=== PATIENT | female | born 1950 | race Caucasian/White ===

== ENCOUNTER 2019-07-25 01:45 | Observation (INO) | payer MEDICARE ==
[2019-07-25 02:04] VITALS: RESP 18
[2019-07-25] MEDS ORDERED: SODIUM CHLORIDE 0.9% 1,000 ML IV STA (02:05)
--- NOTE | 2019-07-25 02:16 | ED ---
General Adult HPI - General Chief complaint: Allergic Reaction Stated complaint: Diff Breathing Time Seen by Provider: 07/25/19 01:56 Source: patient Mode of arrival: ambulatory Limitations: no limitations - History of Present Illness Initial comments: 69-year-old female patient presents to the emergency department today for evaluation of multiple symptoms. Patient states she woke from sleep feeling as though she could not breathe. She is felt like her throat was closing off and her mouth was very dry. States that she then developed itching over her scalp and on her arms. States she is also having a pain to the mid upper back. Denies any abdominal pain. States she is nauseated. Denies any sweats. Patient states she had a similar episode at least 1 week ago. She denies any new medications. Denies any exposure to new substances including foods, lotions, soaps, detergents, or new clothing. Patient denies any recent rash, fever, chills, diarrhea, constipation, back pain, numbness, tingling, dizziness, weakness, hematuria, dysuria, urinary urgency, urinary frequency, headache, visual changes, or any other complaints. - Related Data Allergies Allergy/AdvReac Type Severity Reaction Status Date / Time ampicillin AdvReac Rash/Hives Verified 07/25/19 01:56 Review of Systems ROS Statement: Those systems with pertinent positive or pertinent negative responses have been documented in the HPI. ROS Other: All systems not noted in ROS Statement are negative. Past Medical History Past Medical History: CVA/TIA, Hypertension History of Any Multi-Drug Resistant Organisms: None Reported Past Surgical History: Section, Hysterectomy, Tonsillectomy Additional Past Surgical History / Comment(s): EYE SURGERY Past Psychological History: No Psychological Hx Reported Smoking Status: Never smoker Past Alcohol Use History: Occasional Past Drug Use History: None Reported General Exam Limitations: no limitations General appearance: alert, in no apparent distress, other (This is a well- developed, well-nourished adult female patient in no acute distress. Vital signs upon presentation are temperature 97.4F, pulse 66, respirations 20, blood pressure 92/62, pulse ox 98% on room air.) ENT exam: Present: normal exam, normal oropharynx. Absent: mucous membranes moist (Dry mucous membrane) Respiratory exam: Present: normal lung sounds bilaterally. Absent: respiratory distress, wheezes, rales, rhonchi, stridor Cardiovascular Exam: Present: regular rate, normal rhythm, normal heart sounds. Absent: systolic murmur, diastolic murmur, rubs, gallop, clicks GI/Abdominal exam: Present: soft, normal bowel sounds. Absent: distended, tende rness, guarding, rebound, rigid Neurological exam: Present: alert, oriented X3, CN II-XII intact Psychiatric exam: Present: normal affect, normal mood Skin exam: Present: warm, dry, intact, normal color. Absent: rash Course Vital Signs 07/25/19 07/25/19 01:52 02:02 Temperature 97.4 F L Pulse Rate 66 Respiratory 20 18 Rate Blood Pressure 92/62 O2 Sat by Pulse 98 Oximetry EKG Findings - EKG Comments: EKG Findings:: EKG obtained at 0206 shows sinus bradycardia with a ventricular rate of 59, [place] interval 176, QRS duration 76, QT 422, QTc 417. No evidence of ST elevation or depression. Medical Decision Making - Medical Decision Making 69-year-old female patient with past medical history significant for hypertension and TIA presents to the emergency department today for evaluation of difficulty breathing. Patient is reporting a tightness in her throat and the feeling that she was not getting enough air. She is also reporting dry mouth, nausea, and upper back pain. Labs reviewed and were unremarkable. Chest x-ray showed no acute cardio pulmonary process. EKG showed sinus bradycardia with no ST elevation or depression. Given patient's history and current symptoms will admit for serial troponins to rule out cardiac event. Patient is agreeable with this plan. - Lab Data Result diagrams: 07/25/19 02:08 07/25/19 02:08 Lab Results 07/25/19 07/25/19 07/25/19 Range/Units 02:08 02:08 02:08 WBC 11.6 H (3.8-10.6) k/uL RBC 4.38 (3.80-5.40) m/uL Hgb 12.8 (11.4-16.0) gm/dL Hct 37.3 (34.0-46.0) % MCV 85.1 (80.0-100.0) fL MCH 29.2 (25.0-35.0) pg MCHC 34.3 (31.0-37.0) g/dL RDW 13.1 (11.5-15.5) % Plt Count 397 (150-450) k/uL Neutrophils % 51 % Lymphocytes % 36 % Monocytes % 5 % Eosinophils % 4 % Basophils % 2 % Neutrophils # 5.9 (1.3-7.7) k/uL Lymphocytes # 4.2 (1.0-4.8) k/uL Monocytes # 0.6 (0-1.0) k/uL Eosinophils # 0.5 (0-0.7) k/uL Basophils # 0.2 (0-0.2) k/uL PT 9.4 (9.0-12.0) sec INR 0.9 (<1.2) APTT 22.2 (22.0-30.0) sec D-Dimer (<0.60) mg/L FEU Sodium 139 (137-145) mmol/L Potassium 3.6 (3.5-5.1) mmol/L Chloride 105 (98-107) mmol/L Carbon Dioxide 24 (22-30) mmol/L Anion Gap 10 mmol/L BUN 25 H (7-17) mg/dL Creatinine 0.76 (0.52-1.04) mg/dL Est GFR (CKD-EPI)AfAm >90 (>60 ml/min/1.73 sqM) Est GFR (CKD-EPI)NonAf 81 (>60 ml/min/1.73 sqM) Glucose 130 H (74-99) mg/dL Calcium 9.6 (8.4-10.2) mg/dL Magnesium 1.9 (1.6-2.3) mg/dL Total Bilirubin 0.2 (0.2-1.3) mg/dL AST 29 (14-36) U/L ALT 27 (9-52) U/L Alkaline Phosphatase 127 H (38-126) U/L Troponin I (0.000-0.034) ng/mL Total Protein 7.0 (6.3-8.2) g/dL Albumin 4.1 (3.5-5.0) g/dL 07/25/19 07/25/19 Range/Units 02:08 02:08 WBC (3.8-10.6) k/uL RBC (3.80-5.40) m/uL Hgb (11.4-16.0) gm/dL Hct (34.0-46.0) % MCV (80.0-100.0) fL MCH (25.0-35.0) pg MCHC (31.0-37.0) g/dL RDW (11.5-15.5) % Plt Count (150-450) k/uL Neutrophils % % Lymphocytes % % Monocytes % % Eosinophils % % Basophils % % Neutrophils # (1.3-7.7) k/uL Lymphocytes # (1.0-4.8) k/uL Monocytes # (0-1.0) k/uL Eosinophils # (0-0.7) k/uL Basophils # (0-0.2) k/uL PT (9.0-12.0) sec INR (<1.2) APTT (22.0-30.0) sec D-Dimer 0.50 (<0.60) mg/L FEU Sodium (137-145) mmol/L Potassium (3.5-5.1) mmol/L Chloride (98-107) mmol/L Carbon Dioxide (22-30) mmol/L Anion Gap mmol/L BUN (7-17) mg/dL Creatinine (0.52-1.04) mg/dL Est GFR (CKD-EPI)AfAm (>60 ml/min/1.73 sqM) Est GFR (CKD-EPI)NonAf (>60 ml/min/1.73 sqM) Glucose (74-99) mg/dL Calcium (8.4-10.2) mg/dL Magnesium (1.6-2.3) mg/dL Total Bilirubin (0.2-1.3) mg/dL AST (14-36) U/L ALT (9-52) U/L Alkaline Phosphatase (38-126) U/L Troponin I <0.012 (0.000-0.034) ng/mL Total Protein (6.3-8.2) g/dL Albumin (3.5-5.0) g/dL - Radiology Data Radiology results: report reviewed, image reviewed Two-view x-ray of the chest is obtained. Report was reviewed in its entirety. Impression by Dr. Saab shows normal chest. Disposition Clinical Impression: Dyspnea, Upper back pain, Nausea Disposition: ADMITTED IP TO THIS [facility] Condition: Serious Referrals: Halie Thompson DO [Primary Care Provider] - 1-2 days Decision to Admit Reason: Admit from EC Decision Date: 07/25/19 Decision Time: 03:43
[2019-07-25 02:24] LABS: Basophils # (A) 0.2 k/uL (0-0.2); Basophils % (A) 2 %; Eosinophils # (A) 0.5 k/uL (0-0.7); Eosinophils % (A) 4 %; HCT 37.3 % (34.0-46.0); HGB 12.8 gm/dL (11.4-16.0); Lymphocytes # (A) 4.2 k/uL (1.0-4.8); Lymphocytes % (A) 36 %; MCH 29.2 pg (25.0-35.0); MCHC 34.3 g/dL (31.0-37.0); MCV 85.1 fL (80.0-100.0); Monocytes # (A) 0.6 k/uL (0-1.0); Monocytes % (A) 5 %; Neutrophils # (A) 5.9 k/uL (1.3-7.7); Neutrophils % (A) 51 %; Platelet Count 397 k/uL (150-450); RBC 4.38 m/uL (3.80-5.40); RDW 13.1 % (11.5-15.5); WBC 11.6 k/uL (3.8-10.6)
--- NOTE | 2019-07-25 02:25 | XR ---
EXAMINATION TYPE: XR chest 2V DATE OF EXAM: 07/25/2019 COMPARISON: NONE HISTORY: Chest pain TECHNIQUE: Frontal and lateral views of the chest are obtained. FINDINGS: Heart and mediastinum are normal. Lungs are clear. Diaphragm is normal. Bony thorax appear s normal. There are chest leads. IMPRESSION: Normal chest
[2019-07-25 02:31] LABS: ALT 27 U/L (9-52); AST 29 U/L (14-36); African American GFR (CKD) >90 (>60 ml/min/1.73 sqM); Albumin 4.1 g/dL (3.5-5.0); Alkaline Phosphatase 127 U/L (38-126); Anion Gap 10 mmol/L; Blood Urea Nitrogen 25 mg/dL (7-17); Calcium 9.6 mg/dL (8.4-10.2); Carbon Dioxide 24 mmol/L (22-30); Chloride 105 mmol/L (98-107); Glucose 130 mg/dL (74-99); Magnesium 1.9 mg/dL (1.6-2.3); Non-African American GFR(CKD) 81 (>60 ml/min/1.73 sqM); Potassium 3.6 mmol/L (3.5-5.1); Sodium 139 mmol/L (137-145); Total Bilirubin 0.2 mg/dL (0.2-1.3)
[2019-07-25 02:36] LABS: INR 0.9 (<1.2); Partial Thromboplastin Time 22.2 sec (22.0-30.0); Prothrombin Time 9.4 sec (9.0-12.0)
[2019-07-25] MEDS ORDERED: diphenhydrAMINE 50 MG/ML 1 ML VIAL IVP STA (03:04)
[2019-07-25] MEDS ORDERED: ACETAMINOPHEN TAB 325 MG TAB PO STA (03:04)
[2019-07-25] MEDS ORDERED: NITROGLYCERIN SL TABS 0.4 MG TAB SUBLINGUAL PRN (03:40)
[2019-07-25] MEDS ORDERED: ASPIRIN 81 MG PO STA (03:40)
--- NOTE | 2019-07-25 10:53 | CONS ---
CONSULTATION This is a 69-year-old lady, a patient of Dr. Ramos, who has been admitted to the hospital when she came in with complaining of shortness of breath. She apparently woke up from sleep, felt short of breath. She could not get her breath and came into the hospital. Her initial troponin is normal. She is resting comfortably. She does carry history of hypertension and hypercholesterolemia. She has a diet-controlled diabetes mellitus, which is not an issue at this time. At the time of my evaluation, she is asymptomatic. She never had chest discomfort. Her main complaint was mainly shortness of breath relatively spontaneous and occurred while she was asleep. Her D-dimer was unremarkable. PAST MEDICAL HISTORY: Past medical history is remarkable for hypertension, hypercholesterolemia and previous umbilical hernia surgery that was performed. She also is status post hysterectomy. There is a question of TIA several years ago. MEDICATIONS: Medications at home include pravastatin, lisinopril hydrochlorothiazide. She also takes Protonix and Lopressor 25 mg b.i.d. ALLERGIES: She is allergic to AMPICILLIN. PHYSICAL EXAMINATION: On examination, blood pressure is 130/70, pulse rate is 64 per minute, regular. HEENT: Unremarkable. Fundus was not examined by me. Neck is supple. No JVD. Patient has a right carotid bruit. There is no thyromegaly. Heart exam reveals S1, S2 heard normally without a rub, murmur or gallop. Lungs are clear. Abdomen is soft, nontender. Lower extremities reveal normal pulses. No edema. Central nervous system is normal. EKG revealed sinus mechanism, no acute changes. IMPRESSION: 1. Episodic shortness of breath seems very atypical does not suggest any angina. D- dimer is negative and no evidence to suggest any pulmonary embolism type picture. 2. Hypertension. 3. Hyperlipidemia. 4. Right-sided carotid bruit. RECOMMENDATION: I am recommending an echocardiogram, a carotid Doppler study, a bedside PFT to check if she has any underlying asthma or not, and we will check additional troponins. MMODL / IJN: [id number] /
[2019-07-25 11:37] VITALS: BP 117/63; PULSE 77; TEMP 97.9
--- NOTE | 2019-07-25 12:40 | ECHOF ---
Referral Reason:chest pain MEASUREMENTS -------- HEIGHT: 132.1 cm WEIGHT: 65.3 kg BP: RVIDd: 2.8 cm (< 3.3) IVSd: 1.0 cm (0.6 - 1.1) LVIDd: 3.7 cm (3.9 - 5.3) LVPWd: 1.3 cm (0.6 - 1.1) IVSs: 1.9 cm LVIDs: 1.5 cm LVPWs: 1.5 cm LAESV Index (A-L): 24.36 ml/m Ao Diam: 2.8 cm (2.0 - 3.7) AV Cusp: 1.8 cm (1.5 - 2.6) LA Diam: 2.5 cm (2.7 - 3.8) MV EXCURSION: 14.924 mm (> 18.000) MV EF SLOPE: 102 mm/s (70 - 150) EPSS: 0.5 cm MV E Familia: 0.79 m/s MV DecT: 135 ms MV A Familia: 0.90 m/s MV E/A Ratio: 0.88 RAP: 5.00 mmHg RVSP: 23.88 mmHg TAPSE: 19.09 mm FINDINGS -------- Sinus rhythm. This was a technically good study. The left ventricular size is normal. There is borderline concentric left ventricular hypertrophy. Overall left ventricular systolic function is normal with, an EF between 55 - 60 %. The diastolic filling pattern is normal for the age of the patient 13.13. The right ventricle is normal in size. The right ventricular systolic function is normal. The left atrial size is normal. Normal LA size by volume 22+/-6 ml/m2. The right atrial size is normal. Interatrial and interventricular septum intact. Aortic valve is trileaflet and is mildly thickened. The mitral valve is normal. The mitral valve leaflets are mildly thickened. Mild mitral regurgita tion is present. The tricuspid valve appears structurally normal. Trace tricuspid regurgitation present. Right jose tricular systolic pressure is normal at < 35 mmHg. There is no pulmonic regurgitation present. The aortic root size is normal. Normal inferior vena cava with normal inspiratory collapse consistent with estimated right atrial pre ssure of 5 mmHg. There is no pericardial effusion. CONCLUSIONS -------- 1. Sinus rhythm. 2. This was a technically good study. 3. The left ventricular size is normal. 4. There is borderline concentric left ventricular hypertrophy. 5. Overall left ventricular systolic function is normal with, an EF between 55 - 60 %. 6. The diastolic filling pattern is normal for the age of the patient 13.13 7. The right ventricle is normal in size. 8. The right ventricular systolic function is normal. 9. The left atrial size is normal. 10. Normal LA size by volume 22+/-6 ml/m2. 11. The right atrial size is normal. 12. Interatrial and interventricular septum intact. 13. Aortic valve is trileaflet and is mildly thickened. 14. The mitral valve is normal. 15. The mitral valve leaflets are mildly thickened. 16. Mild mitral regurgitation is present. 17. The tricuspid valve appears structurally normal. 18. Trace tricuspid regurgitation present. 19. Right ventricular systolic pressure is normal at < 35 mmHg. 20. There is no pulmonic regurgitation present. 21. The aortic root size is normal. 22. Normal inferior vena cava with normal inspiratory collapse consistent with estimated right atrial pressure of 5 mmHg. 23. There is no pericardial effusion. [employer] BLANK[employer] PACKER: Jyothi Blackmon RDCS
--- NOTE | 2019-07-25 23:23 | P.HPIM ---
History of Present Illness H&P Date: 07/25/19 Harriet Wilder is a 69 yo F with PMH of HTN who presented to the ED after waking up out of sleep with shortness of breath as well as back discomfort. She states this has never happened before but she woke up and felt she couldn't catch her breath with associated mid-thoracic back pain which radiated into her neck and she descrbies as sharp, electric. She did not have any chest pain. She is a nonsmoker, denies DM or history of heart disease. In the ED vitals and labs unremarkable, trop negative x3. Review of Systems All systems: negative Constitutional: Denies chills, Denies fever Eyes: denies blurred vision, denies pain Ears, nose, mouth and throat: Denies headache, Denies sore throat Cardiovascular: Denies chest pain, Denies shortness of breath Respiratory: Reports dyspnea, Denies cough Gastrointestinal: Denies abdominal pain, Denies diarrhea, Denies nausea, Denies vomiting Genitourinary: Denies dysuria, Denies hematuria Musculoskeletal: Reports as per HPI, Denies myalgias Integumentary: Denies pruritus, Denies rash Neurological: Denies numbness, Denies weakness Psychiatric: Denies anxiety, Denies depression Endocrine: Denies fatigue, Denies weight change Past Medical History Past Medical History: CVA/TIA, Eye Disorder, GERD/Reflux, Hyperlipidemia, Hypertension Additional Past Medical History / Comment(s): TIA, gastric ulcer, constipation, chronic back pain, cervical and back DDD, R eye detached retina with surgery, whooping cough as a child History of Any Multi-Drug Resistant Organisms: None Reported Past Surgical History: Section, Hysterectomy, Tonsillectomy, Tubal Ligation Additional Past Surgical History / Comment(s): R eye surgery for detached retina, bilateral eye lasik surgery for vision, bilateral eye cataract removals/lens implants, EGD, colonoscopy. Past Anesthesia/Blood Transfusion Reactions: No Reported Reaction Smoking Status: Never smoker - Past Family History Father History Unknown: Yes Additional Family Medical History / Comment(s): Father in a MVA at the age of 35 yrs. Mother Family Medical History: Coronary Artery Disease (CAD), Diabetes Mellitus, Myocardial Infarction ([place]), Renal Disease Additional Family Medical History / Comment(s): Mother is 87yrs old. Pt does not recall at what age mother had a [place]. Medications and Allergies Home Medications Medication Instructions Recorded Confirmed Type Lisinopril-Hctz 20-25 mg 1 tab PO DAILY 07/25/19 07/25/19 History [Zestoretic 20-25] Meloxicam 15 mg PO DAILY 07/25/19 07/25/19 History Metoprolol Tartrate [Lopressor] 25 mg PO BID 07/25/19 07/25/19 History Pantoprazole [Protonix] 40 mg PO DAILY 07/25/19 07/25/19 History Pravastatin Sodium [Pravachol] 20 mg PO HS 07/25/19 07/25/19 History tiZANidine [Zanaflex] 4 - 8 mg PO DAILY PRN 07/25/19 07/25/19 History Allergies Allergy/AdvReac Type Severity Reaction Status Date / Time ampicillin AdvReac Rash/Hives Verified 07/25/19 08:09 Physical Exam Vitals: Vital Signs Temp Pulse Pulse Resp BP BP Pulse Ox 07/25/19 11:36 97.9 F 77 18 117/63 95 07/25/19 07:00 97.6 F 64 18 133/79 97 07/25/19 04:25 98.2 F 66 18 144/82 97 07/25/19 03:52 61 18 110/68 98 07/25/19 02:02 18 07/25/19 01:52 97.4 F L 66 20 92/62 98 Intake and Output 07/25/19 07/25/19 07/26/19 14:59 22:59 06:59 Intake Total 240 Balance 240 Intake: Oral 240 Other: # Voids 1 General: well nourished, well developed, NAD. Vitals reviewed Eyes: PERRL, EOMI, conjunctiva normal HENT: normocephalic, mucus membranes moist Neck: supple, no JVD Lungs: normal respiratory effort, no wheezes or rales CV: Regular rate and rhythm, no murmur. Peripheral pulses 2+ Abdomen: soft, nondistended, no organomegaly Lymph: no cervical or axillary LAD Skin: warm and dry. Neuro: A&Ox3, normal mood and affect Results CBC & Chem 7: 07/25/19 02:08 07/25/19 02:08 Labs: Abnormal Lab Results - Last 24 Hours (Table) 07/25/19 07/25/19 Range/Units 02:08 02:08 WBC 11.6 H (3.8-10.6) k/uL BUN 25 H (7-17) mg/dL Glucose 130 H (74-99) mg/dL Alkaline Phosphatase 127 H (38-126) U/L Thrombosis Risk Factor Assmnt - Choose All That Apply Any of the Below Risk Factors Present?: Yes Each Factor Represents 1 point: Obesity (BMI >25) Other Risk Factors: Yes Each Risk Factor Represents 2 Points: Age 61-74 years Other congenital or acquired thrombophilia - If yes, enter type in comment: No Thrombosis Risk Factor Assessment Total Risk Factor Score: 3 Thrombosis Risk Factor Assessment Level: Moderate Risk Assessment and Plan (1) Dyspnea Status: Acute Code(s): R06.00 - DYSPNEA, UNSPECIFIED SNOMED Code(s): 690704921 (2) Nausea Status: Acute Code(s): R11.0 - NAUSEA SNOMED Code(s): 472253615 (3) Upper back pain Status: Acute Code(s): M54.9 - DORSALGIA, UNSPECIFIED SNOMED Code(s): 576044461 Plan: 1. Shortness of breath. ACS ruled out. Cardiology consulted for further eval. Suspect related to back pain/pinched nerve 2. Back pain. Now resolved. Continue to monitor. Ibuprofen prn
--- NOTE | 2019-07-25 23:24 | P.DS ---
Providers Date of admission: 07/25/19 03:41 Expected date of discharge: 07/25/19 Attending physician: Tushar Ramos MD Consults: 07/25/19 03:40 Consult Physician Urgent Consulting Provider: [facility] Consult Reason/Comments: Upper back pain; dyspnea Do you want consulting provider notified?: Yes Primary care physician: Halie Thompson - Discharge Diagnosis(es) (1) Dyspnea Status: Acute (2) Nausea Status: Acute (3) Upper back pain Status: Acute Hospital Course: Harriet Wilder is a 69 yo F with PMH of HTN who presented to the ED after waking up out of sleep with shortness of breath as well as back discomfort. She states this has never happened before but she woke up and felt she couldn't catch her breath with associated mid-thoracic back pain which radiated into her neck and she descrbies as sharp, electric. She did not have any chest pain. She is a nonsmoker, denies DM or history of heart disease. In the ED vitals and labs unremarkable, trop negative x3. She was seen by Cardiology and cleared for discharge. She is discharged home and recommended to follow up outpatient for stress test. Patient Condition at Discharge: Serious Plan - Discharge Summary Discharge Rx Participant: No New Discharge Prescriptions: Continue Pantoprazole [Protonix] 40 mg PO DAILY Lisinopril-Hctz 20-25 mg [Zestoretic 20-25] 1 tab PO DAILY Pravastatin Sodium [Pravachol] 20 mg PO HS tiZANidine [Zanaflex] 4 - 8 mg PO DAILY PRN PRN Reason: arthritis pain Metoprolol Tartrate [Lopressor] 25 mg PO BID Meloxicam 15 mg PO DAILY Discharge Medication List Lisinopril-Hctz 20-25 mg [Zestoretic 20-25] 1 tab PO DAILY 07/25/19 [History] Meloxicam 15 mg PO DAILY 07/25/19 [History] Metoprolol Tartrate [Lopressor] 25 mg PO BID 07/25/19 [History] Pantoprazole [Protonix] 40 mg PO DAILY 07/25/19 [History] Pravastatin Sodium [Pravachol] 20 mg PO HS 07/25/19 [History] tiZANidine [Zanaflex] 4 - 8 mg PO DAILY PRN 07/25/19 [History] Follow up Appointment(s)/Referral(s): Laurie Gomez MD [STAFF PHYSICIAN] - 1 Week (office will call the patient with date and time of appointment for outpatient stress test.) Halie Thompson DO [Primary Care Provider] - 1-2 days Patient Instructions/Handouts: Chest Pain (DC) Discharge Disposition: HOME SELF-CARE
[2019-07-26] MEDS ORDERED: ASPIRIN 325 MG TAB PO SCH (09:00)
== END 2019-07-25 14:11 | disposition home or self-care (01) ==
LOC: EC 01:45 → 1SOBS 03:41
PROVIDERS: ADMIT Family Medicine; ATTEND Family Medicine
DX: R06.00 Dyspnea, unspecified (principal); R11.0 Nausea; M54.9 Dorsalgia, unspecified; E11.9 Type 2 diabetes mellitus without complications; E78.00 Pure hypercholesterolemia, unspecified; E78.5 Hyperlipidemia, unspecified; I10 Essential (primary) hypertension; Z79.1 Long term (current) use of non-steroidal anti-inflammatories (NSAID); Z79.899 Other long term (current) drug therapy; Z82.49 Family history of ischemic heart disease and other diseases of the circulatory system; Z83.3 Family history of diabetes mellitus; Z86.73 Personal history of transient ischemic attack (TIA), and cerebral infarction without residual deficits; Z87.11 Personal history of peptic ulcer disease; Z90.710 Acquired absence of both cervix and uterus; Z88.0 Allergy status to penicillin; R09.89 Other specified symptoms and signs involving the circulatory and respiratory systems; Z98.51 Tubal ligation status; Z98.42 Cataract extraction status, left eye; Z98.41 Cataract extraction status, right eye; Z96.1 Presence of intraocular lens
CPT/HCPCS: 93005 ×2; 96361; 96374; 99285; 36415; 93306; 85379; 80053; 83735; 84484; 85025; 85610; 85730; 71046; G0378; J1200

== ENCOUNTER → 2019-11-20 | Outpatient (CLI) | payer MEDICARE | END | disposition home or self-care (01) | LOC: RADMAMWWP 14:22 | PROVIDERS: ATTEND Family Medicine | DX: Z12.31 Encounter for screening mammogram for malignant neoplasm of breast (principal) | CPT/HCPCS: 77067 ==

== ENCOUNTER → 2021-02-15 | Outpatient (CLI) | payer MEDICARE ==
--- NOTE | 2021-02-17 08:30 | MM ---
Reason for exam: screening (asymptomatic). Last mammogram was performed 1 year and 3 months ago. History: Patient is postmenopausal. Family history of breast cancer in paternal aunt. Reductions of both breasts. Took estrogen for 2 years beginning at age 67. Physical Findings: A clinical breast exam by your physician is recommended on an annual basis and results should be correlated with mammographic findings. MG 3D Screening Mammo W/Cad Bilateral CC and MLO view(s) were taken. Prior study comparison: November 20, 2019, bilateral MG screening mammo w CAD. January 18, 2018, mammogram, performed at [place]. There are scattered fibroglandular densities. There are benign appearing round dystrophic calcifications bilaterally. There is no discrete abnormality. ASSESSMENT: Benign, BI-RAD 2 RECOMMENDATION: Routine screening mammogram of both breasts in 1 year.
== END | disposition home or self-care (01) ==
LOC: RADMAMWWP 12:31
PROVIDERS: ATTEND Family Medicine
DX: Z12.31 Encounter for screening mammogram for malignant neoplasm of breast (principal); Z78.0 Asymptomatic menopausal state; Z80.3 Family history of malignant neoplasm of breast
CPT/HCPCS: 77063; 77067

== ENCOUNTER 2021-04-04 08:42 | Emergency (ER) | payer MEDICARE ==
[2021-04-04 08:47] VITALS: RESP 18
[2021-04-04] MEDS ORDERED: HYDROmorphone 1 MG/ML 1 ML SYRINGE IM STA (09:06)
--- NOTE | 2021-04-04 09:58 | CT ---
EXAMINATION TYPE: CT cervical spine wo con DATE OF EXAM: 04/04/2021 COMPARISON: None HISTORY: Right neck and arm pain with numbness for [address] DLP: 380.4 mGycm CONTRAST: None CT of the cervical spine is performed in the axial plane at 2 mm thick sections. Reconstructed image s in the coronal, and sagittal plane are reviewed on the computer. No acute fractures are evident. Vertebral body alignment is normal. There is an anterior cervical fusion at C4-5. Loss of disc height is present C4-5 C5-6 C6-7. Anterior vertebral body spurring is present C5-6 C6-7. Some posterior vertebral body spurring may be present at C6-7. Vertebral body heights are preserved. No spinal canal stenosis is evident Facet hypertrophy and uncovertebral joint hypertrophy is present C2-3 causing right foraminal stenosi s. Similar left foraminal stenosis present C3-4. Bilateral uncovertebral joint hypertrophy at C5-6 pitts s moderate bilateral foraminal stenosis IMPRESSIONS: 1. Uncovertebral joint hypertrophy contributing to foraminal stenosis. Correlate with right arm rasheeda rologic symptoms. 2. Degenerative disc changes mid and lower cervical spine. 3. Postsurgical changes.
--- NOTE | 2021-04-04 10:26 | ED ---
General Adult HPI - General Chief complaint: Back Pain/Injury Stated complaint: pinched nerve Time Seen by Provider: 04/04/21 08:49 Source: patient, RN notes reviewed Mode of arrival: ambulatory Limitations: no limitations - History of Present Illness Initial comments: This a 71-year-old female presents emergency Department with chief complaint neck pain. Patient states she had surgery or 10 years ago. Patient's been having increasing pain in which she started seen Dr. Henson. Patient is scheduled for CT and possible injections. Patient states pain is getting worse she does have some right radicular symptoms she states she is on tramadol which is not helping. Patient denies any current headache chest pain shortness breath no other complaints. - Related Data Home Medications Medication Instructions Recorded Confirmed Lisinopril-Hctz 20-25 mg 1 tab PO DAILY 07/25/19 07/25/19 [Zestoretic 20-25] Metoprolol Tartrate [Lopressor] 25 mg PO BID 07/25/19 07/25/19 Pantoprazole [Protonix] 40 mg PO DAILY 07/25/19 07/25/19 Pravastatin Sodium [Pravachol] 20 mg PO HS 07/25/19 07/25/19 Aspirin EC [Ecotrin Low Dose] 81 mg PO DAILY 04/04/21 04/04/21 Cholecalciferol [Vitamin D3 (25 25 mcg PO DAILY 04/04/21 04/04/21 Mcg = 1000 Iu)] Meloxicam [Mobic] 7.5 mg PO HS 04/04/21 04/04/21 Vitamin B Complex 1 cap PO DAILY 04/04/21 04/04/21 metFORMIN HCL ER [Glucophage XR] 500 mg PO AC-SUPPER 04/04/21 04/04/21 traMADol HCL 50 mg PO TID PRN 04/04/21 04/04/21 Previous Rx's Medication Instructions Recorded HYDROcodone/APAP 5-325MG [[place] 5] 1 each PO Q6HR PRN #12 tab 04/04/21 predniSONE 50 mg PO DAILY #5 tab 04/04/21 Allergies Allergy/AdvReac Type Severity Reaction Status Date / Time ampicillin AdvReac Rash/Hives Verified 04/04/21 10:12 Review of Systems ROS Statement: Those systems with pertinent positive or pertinent negative responses have been documented in the HPI. ROS Other: All systems not noted in ROS Statement are negative. Past Medical History Past Medical History: CVA/TIA, Eye Disorder, GERD/Reflux, Hyperlipidemia, Hypertension Additional Past Medical History / Comment(s): TIA, gastric ulcer, constipation, chronic back pain, cervical and back DDD, R eye detached retina with surgery, whooping cough as a child History of Any Multi-Drug Resistant Organisms: None Reported Past Surgical History: Section, Hysterectomy, Tonsillectomy, Tubal Ligation Additional Past Surgical History / Comment(s): R eye surgery for detached retina, bilateral eye lasik surgery for vision, bilateral eye cataract removals/lens implants, EGD, colonoscopy. Past Anesthesia/Blood Transfusion Reactions: No Reported Reaction Past Psychological History: Depression Smoking Status: Never smoker Past Alcohol Use History: Occasional Past Drug Use History: None Reported - Past Family History Father History Unknown: Yes Additional Family Medical History / Comment(s): Father in a MVA at the age of 35 yrs. Mother Family Medical History: Coronary Artery Disease (CAD), Diabetes Mellitus, Myocardial Infarction ([place]), Renal Disease Additional Family Medical History / Comment(s): Mother is 87yrs old. Pt does not recall at what age mother had a [place]. General Exam Limitations: no limitations General appearance: alert, in no apparent distress Head exam: Present: atraumatic, normocephalic, normal inspection Neck exam: Present: normal inspection, tenderness, full ROM. Absent: meningismus, lymphadenopathy Respiratory exam: Present: normal lung sounds bilaterally. Absent: respiratory distress, wheezes, rales, rhonchi, stridor Cardiovascular Exam: Present: regular rate, normal rhythm, normal heart sounds. Absent: systolic murmur, diastolic murmur, rubs, gallop, clicks Extremities exam: Present: other (Upper extremity strength equal bilaterally neurovascular intact) Neurological exam: Present: alert, oriented X3, CN II-XII intact, reflexes normal. Absent: motor sensory deficit Skin exam: Present: warm, dry, intact, normal color. Absent: rash Course Vital Signs 04/04/21 04/04/21 08:44 10:08 Temperature 98.0 F Pulse Rate 68 62 Respiratory 18 18 Rate Blood Pressure 132/74 136/67 O2 Sat by Pulse 97 98 Oximetry Medical Decision Making - Medical Decision Making Patient CT shows degenerative changes, stenosis correlate for right radicular symptoms. Patient was started on steroids,, increased pain control patient with follow-up. Disposition Clinical Impression: Cervical spinal stenosis, Cervical radiculopathy Disposition: HOME SELF-CARE Condition: Stable Instructions (If sedation given, give patient instructions): Cervical Radiculopathy (ED) Additional Instructions: Please return to the Emergency Department if symptoms worsen or any other concerns. Prescriptions: HYDROcodone/APAP 5-325MG [[place] 5] 1 each PO Q6HR PRN #12 tab PRN Reason: Pain predniSONE 50 mg PO DAILY #5 tab Is patient prescribed a controlled substance at d/c from ED?: Yes When asked, does pt state using other controlled substances?: Yes If prescribed controlled substance>3 days was MAPS reviewed?: Prescribed <3 Days If opioid is for acute pain is fill amount 7 days or less?: Yes If Rx opioid, was Start Talking consent form obtained?: Yes Referrals: Stefan Mcgrath DO [Primary Care Provider] - 1-2 days Time of Disposition: 10:28
[2021-04-04] MEDS ORDERED: HYDROcodone/APAP 5-325MG 1 EACH TAB PO STA (10:33)
[2021-04-04 10:38] VITALS: BP 139/97; PULSE 58; TEMP 97.8
== END 2021-04-04 10:40 | disposition home or self-care (01) ==
LOC: EC 08:42
DX: M48.02 Spinal stenosis, cervical region (principal); M54.12 Radiculopathy, cervical region; I10 Essential (primary) hypertension; E78.5 Hyperlipidemia, unspecified; K21.9 Gastro-esophageal reflux disease without esophagitis; F32.9 Major depressive disorder, single episode, unspecified; Z79.52 Long term (current) use of systemic steroids; Z79.891 Long term (current) use of opiate analgesic; Z79.84 Long term (current) use of oral hypoglycemic drugs; Z79.82 Long term (current) use of aspirin; Z79.899 Other long term (current) drug therapy; Z83.3 Family history of diabetes mellitus; Z82.49 Family history of ischemic heart disease and other diseases of the circulatory system; Z88.0 Allergy status to penicillin
CPT/HCPCS: 72125; 99283; 96372; J1170

== ENCOUNTER 2021-04-11 11:49 | Emergency (ER) | payer MEDICARE ==
[2021-04-11 12:00] VITALS: TEMP 98
[2021-04-11] MEDS ORDERED: KETOROLAC 15 MG/ML 1 ML VIAL IM STA (12:58)
[2021-04-11] MEDS ORDERED: DIAZEPAM 5 MG/ML 2 ML INJ IM ONE (12:59)
--- NOTE | 2021-04-11 13:04 | ED ---
General Adult HPI - General Chief complaint: Neck Pain/Injury Stated complaint: neck/back pain Time Seen by Provider: 04/11/21 12:45 Source: patient, RN notes reviewed, old records reviewed Mode of arrival: ambulatory Limitations: no limitations - History of Present Illness Initial comments: 71-year-old female presenting for reevaluation of chronic neck pain. Patient was seen about one week ago and had been given steroid pack and is currently taking [place] for pain. She is planning to have an evaluation by the pain clinic and have injections performed. She has not had an appointment made currently. She is waiting for a call back. She denies any new trauma. Denies fever or chills. The pain does radiate into her right arm. She had a CT performed on April 04 which did show foramen stenosis. Patient denies chest pain or abdominal pain. Denies vomiting. She is requesting a on injection for pain control. - Related Data Home Medications Medication Instructions Recorded Confirmed Lisinopril-Hctz 20-25 mg 1 tab PO DAILY 07/25/19 04/04/21 [Zestoretic 20-25] Metoprolol Tartrate [Lopressor] 25 mg PO HS 07/25/19 04/04/21 Pantoprazole [Protonix] 40 mg PO HS 07/25/19 04/04/21 Pravastatin Sodium [Pravachol] 20 mg PO HS 07/25/19 04/04/21 Aspirin EC [Ecotrin Low Dose] 81 mg PO DAILY 04/04/21 04/04/21 Cholecalciferol [Vitamin D3 (25 25 mcg PO DAILY 04/04/21 04/04/21 Mcg = 1000 Iu)] Meloxicam [Mobic] 7.5 mg PO HS 04/04/21 04/04/21 Vitamin B Complex 1 cap PO DAILY 04/04/21 04/04/21 metFORMIN HCL ER [Glucophage XR] 500 mg PO AC-SUPPER 04/04/21 04/04/21 traMADol HCL 50 mg PO TID PRN 04/04/21 04/04/21 Previous Rx's Medication Instructions Recorded HYDROcodone/APAP 5-325MG [[place] 5] 1 each PO Q6HR PRN #12 tab 04/04/21 predniSONE 50 mg PO DAILY #5 tab 04/04/21 Cyclobenzaprine [Flexeril] 5 mg PO TID PRN #9 tablet 04/11/21 Ibuprofen [Motrin] 400 mg PO Q8HR #30 tab 04/11/21 Allergies Allergy/AdvReac Type Severity Reaction Status Date / Time ampicillin AdvReac Rash/Hives Verified 04/11/21 12:00 Review of Systems ROS Statement: Those systems with pertinent positive or pertinent negative responses have been documented in the HPI. ROS Other: All systems not noted in ROS Statement are negative. Past Medical History Past Medical History: CVA/TIA, Eye Disorder, GERD/Reflux, Hyperlipidemia, H ypertension Additional Past Medical History / Comment(s): TIA, gastric ulcer, constipation, chronic back pain, cervical and back DDD, R eye detached retina with surgery, whooping cough as a child History of Any Multi-Drug Resistant Organisms: None Reported Past Surgical History: Section, Hysterectomy, Tonsillectomy, Tubal Ligation Additional Past Surgical History / Comment(s): R eye surgery for detached retina, bilateral eye lasik surgery for vision, bilateral eye cataract removals/lens implants, EGD, colonoscopy. Past Anesthesia/Blood Transfusion Reactions: No Reported Reaction Past Psychological History: Depression Smoking Status: Never smoker Past Alcohol Use History: Occasional Past Drug Use History: None Reported - Past Family History Father History Unknown: Yes Additional Family Medical History / Comment(s): Father in a MVA at the age of 35 yrs. Mother Family Medical History: Coronary Artery Disease (CAD), Diabetes Mellitus, Myocardial Infarction ([place]), Renal Disease Additional Family Medical History / Comment(s): Mother is 87yrs old. Pt does not recall at what age mother had a [place]. General Exam Limitations: no limitations General appearance: alert, in no apparent distress Head exam: Present: atraumatic, normocephalic Eye exam: Present: normal appearance, PERRL ENT exam: Present: normal exam Neck exam: Present: normal inspection, tenderness (Paraspinal) Respiratory exam: Present: normal lung sounds bilaterally. Absent: respiratory distress, wheezes Cardiovascular Exam: Present: regular rate, normal rhythm GI/Abdominal exam: Present: soft. 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 She is also given referral to orthopedics in addition to her planned referral to the pain clinic. Return parameters are discussed. Disposition Clinical Impression: Cervical radiculopathy Disposition: HOME SELF-CARE Condition: Fair Instructions (If sedation given, give patient instructions): Neck Pain (ED), Cervical Radiculopathy (ED) Prescriptions: Cyclobenzaprine [Flexeril] 5 mg PO TID PRN #9 tablet PRN Reason: Muscle Spasm Ibuprofen [Motrin] 400 mg PO Q8HR #30 tab Is patient prescribed a controlled substance at d/c from ED?: No Referrals: Stefan Mcgrath DO [Primary Care Provider] - 1-2 days José Miguel Asencio DO [Doctor of Osteopathic Medicine] - 1-2 days Time of Disposition: 13:04
[2021-04-11 13:34] VITALS: BP 160/80; PULSE 76; RESP 18
== END 2021-04-11 13:27 | disposition home or self-care (01) ==
LOC: EC 11:49
DX: M54.12 Radiculopathy, cervical region (principal); I10 Essential (primary) hypertension; E78.5 Hyperlipidemia, unspecified; K21.9 Gastro-esophageal reflux disease without esophagitis; Z86.73 Personal history of transient ischemic attack (TIA), and cerebral infarction without residual deficits; Z87.11 Personal history of peptic ulcer disease; Z79.52 Long term (current) use of systemic steroids; Z79.1 Long term (current) use of non-steroidal anti-inflammatories (NSAID); Z79.82 Long term (current) use of aspirin; Z79.84 Long term (current) use of oral hypoglycemic drugs; Z88.0 Allergy status to penicillin; F32.9 Major depressive disorder, single episode, unspecified
CPT/HCPCS: 99283; 96372 ×2; J3360; J1885

== ENCOUNTER 2021-11-29 06:12 | Emergency (ER) | payer MEDICARE ==
[2021-11-29 06:22] VITALS: BP 158/83; PULSE 65; RESP 19; TEMP 98
[2021-11-29] MEDS ORDERED: KETOROLAC 15 MG/ML 1 ML VIAL IM STA (06:32)
[2021-11-29] MEDS ORDERED: DIAZEPAM 5 MG/ML 2 ML INJ IM STA (06:32)
[2021-11-29] MEDS ORDERED: HYDROcodone/APAP 5-325MG 1 EACH TAB PO STA (06:32)
--- NOTE | 2021-11-29 06:37 | ED ---
Back Pain HPI - General Chief Complaint: Back Pain/Injury Stated Complaint: L Shoulder/Arm Pain Time Seen by Provider: 11/29/21 06:23 Source: patient, RN notes reviewed Mode of arrival: ambulatory Limitations: no limitations - History of Present Illness Initial Comments: 71-year-old female presents emergency Department chief complaint of neck issues. Patient has been seen orthopedics associate receive injections for spinal stenosis of her neck, radiculopathy type symptoms. She's had 2 on the right one the left she is scheduled for Sunday for another injection states pain increased and she does not having at home for pain relief. She denies any chest pain or shortness breath no fevers or chills no back pain. Patient is a complaints of focal weakness nausea vomiting states is his same pain she always has. - Related Data Home Medications Medication Instructions Recorded Confirmed Lisinopril-Hctz 20-25 mg 1 tab PO DAILY 07/25/19 04/04/21 [Zestoretic 20-25] Metoprolol Tartrate [Lopressor] 25 mg PO HS 07/25/19 04/04/21 Pantoprazole [Protonix] 40 mg PO HS 07/25/19 04/04/21 Pravastatin Sodium [Pravachol] 20 mg PO HS 07/25/19 04/04/21 Aspirin EC [Ecotrin Low Dose] 81 mg PO DAILY 04/04/21 04/04/21 Cholecalciferol [Vitamin D3 (25 25 mcg PO DAILY 04/04/21 04/04/21 Mcg = 1000 Iu)] Meloxicam [Mobic] 7.5 mg PO HS 04/04/21 04/04/21 Vitamin B Complex 1 cap PO DAILY 04/04/21 04/04/21 metFORMIN HCL ER [Glucophage XR] 500 mg PO AC-SUPPER 04/04/21 04/04/21 traMADol HCL 50 mg PO TID PRN 04/04/21 04/04/21 Previous Rx's Medication Instructions Recorded HYDROcodone/APAP 5-325MG [[place] 5] 1 each PO Q6HR PRN #12 tab 04/04/21 predniSONE 50 mg PO DAILY #5 tab 04/04/21 Cyclobenzaprine [Flexeril] 5 mg PO TID PRN #9 tablet 04/11/21 Ibuprofen [Motrin] 400 mg PO Q8HR #30 tab 04/11/21 Cyclobenzaprine [Flexeril] 5 mg PO TID PRN #15 tablet 11/29/21 HYDROcodone/APAP 5-325MG [[place] 5] 1 each PO Q6HR PRN #12 tab 11/29/21 predniSONE 50 mg PO DAILY #5 tab 11/29/21 Allergies Allergy/AdvReac Type Severity Reaction Status Date / Time ampicillin AdvReac Rash/Hives Verified 11/29/21 06:22 Review of Systems ROS Statement: Those systems with pertinent positive or pertinent negative responses have been documented in the HPI. ROS Other: All systems not noted in ROS Statement are negative. Past Medical History Past Medical History: CVA/TIA, Eye Disorder, GERD/Reflux, Hyperlipidemia, Hypertension Additional Past Medical History / Comment(s): TIA, gastric ulcer, constipation, chronic back pain, cervical and back DDD, R eye detached retina with surgery, whooping cough as a child History of Any Multi-Drug Resistant Organisms: None Reported Past Surgical History: Section, Hysterectomy, Tonsillectomy, Tubal Ligation Additional Past Surgical History / Comment(s): R eye surgery for detached retin a, bilateral eye lasik surgery for vision, bilateral eye cataract removals/lens implants, EGD, colonoscopy. Past Anesthesia/Blood Transfusion Reactions: No Reported Reaction Past Psychological History: Depression Smoking Status: Never smoker Past Alcohol Use History: Occasional Past Drug Use History: None Reported - Past Family History Father History Unknown: Yes Additional Family Medical History / Comment(s): Father in a MVA at the age of 35 yrs. Mother Family Medical History: Coronary Artery Disease (CAD), Diabetes Mellitus, Myocardial Infarction ([place]), Renal Disease Additional Family Medical History / Comment(s): Mother is 87yrs old. Pt does not recall at what age mother had a [place]. General Exam Limitations: no limitations General appearance: alert, in no apparent distress Head exam: Present: atraumatic, normocephalic, normal inspection Eye exam: Present: normal appearance, PERRL, EOMI. Absent: scleral icterus, conjunctival injection, periorbital swelling ENT exam: Present: normal exam, normal oropharynx, mucous membranes moist Neck exam: Present: tenderness (Left cervical paraspinal, trapezius), full ROM. Absent: normal inspection, meningismus, lymphadenopathy Respiratory exam: Present: normal lung sounds bilaterally. Absent: respiratory distress, wheezes, rales, rhonchi, stridor Cardiovascular Exam: Present: regular rate, normal rhythm, normal heart sounds. Absent: systolic murmur, diastolic murmur, rubs, gallop, clicks Extremities exam: Present: other (Extremity strength equal bilaterally, neurovascular intact equal color and warmth there is tenderness of the left trapezius) Back exam: Present: full ROM, tenderness Neurological exam: Present: alert, oriented X3, reflexes normal. Absent: motor sensory deficit Course Vital Signs 11/29/21 06:19 Temperature 98 F Pulse Rate 65 Respiratory 19 Rate Blood Pressure 158/83 O2 Sat by Pulse 96 Oximetry Medical Decision Making - Medical Decision Making 71-year-old female presented for neck pain and did review prior imaging which showed spinal stenosis cervical spine she has been receiving injections for this. Patient did have exacerbation she's neurologically intact no other associated symptoms. Patient provided pain relief will be discharged in stable condition return parameters were discussed. Disposition Clinical Impression: Cervical radiculopathy Disposition: TRANSFER TO PSYCH HOSP/UNIT Condition: Stable Instructions (If sedation given, give patient instructions): Cervical Radiculopathy (ED) Additional Instructions: Please return to the Emergency Department if symptoms worsen or any other concerns. Prescriptions: Cyclobenzaprine [Flexeril] 5 mg PO TID PRN #15 tablet PRN Reason: Muscle Spasm HYDROcodone/APAP 5-325MG [[place] 5] 1 each PO Q6HR PRN #12 tab PRN Reason: Pain predniSONE 50 mg PO DAILY #5 tab Is patient prescribed a controlled substance at d/c from ED?: Yes When asked, does pt state using other controlled substances?: No If prescribed controlled substance>3 days was MAPS reviewed?: Prescribed <3 Days If opioid is for acute pain is fill amount 7 days or less?: Yes If Rx opioid, was Start Talking consent form obtained?: Yes Referrals: Stefan Mcgrath DO [Primary Care Provider] - 1-2 days Time of Disposition: 06:37
== END 2021-11-29 06:50 ==
LOC: EC 06:12
DX: M54.12 Radiculopathy, cervical region (principal); I10 Essential (primary) hypertension; E78.5 Hyperlipidemia, unspecified; K21.9 Gastro-esophageal reflux disease without esophagitis; F32.A Depression, unspecified; Z79.52 Long term (current) use of systemic steroids; Z79.84 Long term (current) use of oral hypoglycemic drugs; Z79.82 Long term (current) use of aspirin; Z79.899 Other long term (current) drug therapy
CPT/HCPCS: 99284; 96372 ×2; J3360; J1885

== ENCOUNTER → 2022-02-16 | Outpatient (CLI) | payer MEDICARE ==
--- NOTE | 2022-02-21 13:50 | MM ---
Reason for Exam: Screening (asymptomatic). Last screening mammogram was performed 12 month(s) ago. Patient History: Menarche at age 13. First Full-Term at age 19. Left ovary removed at age 49. Right ovary removed at age 49. Hysterectomy at age 49. Postmenopausal. Estrogen, starting at age 67 for 2 years. 01/16/2012, Bilateral Reduction. Paternal aunt had breast cancer at or over age 50. Risk Values: Dorothy 5 year model risk: 1.3%. NCI Lifetime model risk: 3.5%. Prior Study Comparison: 01/18/2018 Screening Mammogram, [place]. 11/20/2019 Bilateral Screening Mammogram, [facility]. 02/15/2021 Bilateral Screening Mammogram, [facility]. Tissue Density: There are scattered fibroglandular densities. Findings: Analyzed By CAD. Areas of benign fat necrosis calcifications on the left. No significant change from prior exams. Overall Assessment: Benign, BI-RAD 2 Management: Screening Mammogram of both breasts in 1 year. 1. Patient should continue monthly self breast exams. 2. A clinical breast exam by your physician is recommended on an annual basis and results should be correlated with mammographic findings. A negative mammogram should not preclude additional follow-up of suspicious palpable abnormalities. Electronically signed and approved by: Savanna Cervantes M.D. Radiologist
== END | disposition home or self-care (01) ==
LOC: RADMAMWWP 13:26
PROVIDERS: ATTEND Family Medicine
DX: Z12.31 Encounter for screening mammogram for malignant neoplasm of breast (principal); Z78.0 Asymptomatic menopausal state; Z80.3 Family history of malignant neoplasm of breast
CPT/HCPCS: 77063; 77067

== ENCOUNTER → 2023-02-19 | Outpatient (CLI) | payer MEDICARE ==
--- NOTE | 2023-02-19 13:53 | MM ---
Reason for Exam: Screening (asymptomatic). Last screening mammogram was performed 12 month(s) ago. Patient History: Menarche at age 13. First Full-Term at age 19. Left ovary removed at age 49. Right ovary removed at age 49. Hysterectomy at age 49. Postmenopausal. Estrogen, from age 67 until age 70. 01/16/2012, Bilateral Reduction. Paternal aunt had breast cancer at or over age 50. Risk Values: Dorothy 5 year model risk: 1.3%. NCI Lifetime model risk: 3.3%. Prior Study Comparison: 09/21/2016 Screening Mammogram, [place]. 01/18/2018 Screening Mammogram, [place]. 11/20/2019 Bilateral Screening Mammogram, [facility]. 02/15/2021 Bilateral Screening Mammogram, [facility]. 02/16/2022 Bilateral MG 3D screening mammo w/cad, [facility]. Tissue Density: The breast tissue is almost entirely fat. Findings: Analyzed By CAD. Benign-appearing calcifications bilaterally and probable left renal cyst. There is no suspicious group of microcalcifications or new suspicious mass in either breast. Overall Assessment: Benign, BI-RAD 2 Management: Screening Mammogram of both breasts in [address] [facility] will attempt to contact patient to return for supplemental views and ultrasound if indicated. Patient should continue monthly self-breast exams. A clinical breast exam by your physician is recommended on an annual basis. This exam should not preclude additional follow-up of suspicious palpable abnormalities. Note on Dorothy scores and lifetime risk: 1. A Dorothy score greater than 3% is considered moderate risk. If this is the case, consider specialist referral to assess eligibility for a risk reducing agent. 2. If overall lifetime risk for the development of breast cancer is 20% or higher, the patient may qualify for future screening with alternating mammogram and breast MRI. Electronically signed and approved by: Pato Castro DO
== END | disposition home or self-care (01) ==
LOC: RADMAMWWP 13:13
PROVIDERS: ATTEND Family Medicine
DX: Z12.31 Encounter for screening mammogram for malignant neoplasm of breast (principal); Z78.0 Asymptomatic menopausal state; Z80.3 Family history of malignant neoplasm of breast
CPT/HCPCS: 77063; 77067

== ENCOUNTER 2023-03-20 03:23 | Observation (INO) | payer MEDICARE ==
--- NOTE | 2023-03-20 04:04 | ED ---
General Adult HPI - General Chief complaint: Neuro Symptoms/Deficit Stated complaint: Left arm pain radiating towards face Time Seen by Provider: 03/20/23 03:30 Source: patient Mode of arrival: ambulatory - History of Present Illness Initial comments: 73-year-old female presents to the emergency department reporting to left face and arm numbness. States that she went to work out at the [facility] earlier today. She was lifting weights. Afterward she began having some tingling in her left arm which she thought was related to her exercise. States that the tingling then ascended up her arm and now involves the left side of her face. She also admits that she feels a little bit weak in that extremity. She is right-hand dominant. No visual changes or speech deficit. No headache. Denies any head trauma. No history of stroke. No other alleviating, precipitating or modifying factors - Related Data Home Medications Medication Instructions Recorded Confirmed Lisinopril-Hctz 20-25 mg 1 tab PO HS 07/25/19 03/20/23 [Zestoretic 20-25] Metoprolol Tartrate [Lopressor] 25 mg PO HS 07/25/19 03/20/23 Pantoprazole [Protonix] 40 mg PO HS 07/25/19 03/20/23 Aspirin EC [Ecotrin Low Dose] 81 mg PO DAILY 04/04/21 03/20/23 Cholecalciferol [Vitamin D3 (25 25 mcg PO DAILY 04/04/21 03/20/23 Mcg = 1000 Iu)] Meloxicam [Mobic] 7.5 mg PO BID 04/04/21 03/20/23 Vitamin B Complex 1 cap PO DAILY 04/04/21 03/20/23 HYDROcodone/APAP 5-325MG [[place] 1 tab PO BID PRN 03/20/23 03/20/23 5-325] metFORMIN HCL ER [Glucophage XR] 500 mg PO AC-SUPPER PRN 03/20/23 03/20/23 Previous Rx's Medication Instructions Recorded Atorvastatin [Lipitor] 40 mg PO HS #30 tab 03/23/23 Allergies Allergy/AdvReac Type Severity Reaction Status Date / Time ampicillin Allergy Rash/Hives Verified 03/20/23 07:57 nickel Allergy Rash/Hives Verified 03/20/23 07:57 Review of Systems ROS Statement: Those systems with pertinent positive or pertinent negative responses have been documented in the HPI. ROS Other: All systems not noted in ROS Statement are negative. Past Medical History Past Medical History: CVA/TIA, Eye Disorder, GERD/Reflux, Hyperlipidemia, Hypertension Additional Past Medical History / Comment(s): TIA, gastric ulcer, constipation, chronic back pain, cervical and back DDD, R eye detached retina with surgery, whooping cough as a child History of Any Multi-Drug Resistant Organisms: None Reported Past Surgical History: Section, Hysterectomy, Tonsillectomy, Tubal Ligation Additional Past Surgical History / Comment(s): R eye surgery for detached retina, bilateral eye lasik surgery for vision, bilateral eye cataract removals/lens implants, EGD, colonoscopy. Past Anesthesia/Blood Transfusion Reactions: No Reported Reaction Past Psychological History: Depression Smoking Status: Never smoker Past Alcohol Use History: Occasional Past Drug Use History: None Reported - Past Family History Father History Unknown: Yes Additional Family Medical History / Comment(s): Father in a MVA at the age of 35 yrs. Mother Family Medical History: Coronary Artery Disease (CAD), Diabetes Mellitus, Myocardial Infarction (SD), Renal Disease Additional Family Medical History / Comment(s): Mother is 87yrs old. Pt does not recall at what age mother had a SD. General Exam General appearance: alert, in no apparent distress Head exam: Present: atraumatic, normocephalic, normal inspection Eye exam: Present: normal appearance, PERRL, EOMI. Absent: scleral icterus, conjunctival injection, periorbital swelling ENT exam: Present: normal exam, mucous membranes moist Neck exam: Present: normal inspection. Absent: tenderness, meningismus, lymphadenopathy Respiratory exam: Present: normal lung sounds bilaterally. Absent: respiratory distress, wheezes, rales, rhonchi, stridor Cardiovascular Exam: Present: regular rate, normal rhythm, normal heart sounds. Absent: systolic murmur, diastolic murmur, rubs, gallop, clicks GI/Abdominal exam: Present: soft, normal bowel sounds. Absent: distended, tenderness, guarding, rebound, rigid Extremities exam: Present: normal inspection, full ROM, normal capillary refill. Absent: tenderness, pedal edema, joint swelling, calf tenderness Back exam: Present: normal inspection Neurological exam: Present: alert, oriented X3, CN II-XII intact Psychiatric exam: Present: normal affect, normal mood Skin exam: Present: warm, dry, intact, normal color. Absent: rash Course Vital Signs 03/20/23 03/20/23 03/20/23 03:26 05:53 06:05 Temperature 97.9 F 98 F Pulse Rate 69 55 L Pulse Rate [ 74 Pulse Oximetery ] Respiratory 16 18 16 Rate Blood Pressure 210/75 176/74 Blood Pressure 135/83 [Right Arm] O2 Sat by Pulse 98 97 97 Oximetry 03/20/23 03/20/23 03/20/23 06:40 08:20 10:16 Temperature Pulse Rate 58 L 77 63 Pulse Rate [ Pulse Oximetery ] Respiratory 17 18 18 Rate Blood Pressure 184/75 148/72 153/68 Blood Pressure [Right Arm] O2 Sat by Pulse 95 93 L 98 Oximetry 03/20/23 13:31 Temperature Pulse Rate 64 Pulse Rate [ Pulse Oximetery ] Respiratory 18 Rate Blood Pressure 153/68 Blood Pressure [Right Arm] O2 Sat by Pulse 98 Oximetry Medical Decision Making - Medical Decision Making Was pt. sent in by a medical professional or institution (, PA, CREDIT COLLECTION SPECIALIST, urgent care, hospital, or alf...) When possible be specific @ -No Did you speak to anyone other than the patient for history (EMS, parent, family, police, friend...)? What history was obtained from this source @ -No Did you review nursing and triage notes (agree or disagree)? Why? @ -I reviewed and agree with nursing and triage notes Were old charts reviewed (outside hosp., previous admission, EMS record, old EKG, old radiological studies, urgent care reports/EKG's, alf records)? Report findings @ -No old charts were reviewed Differential Diagnosis (chest pain, altered mental status, abdominal pain women, abdominal pain men, vaginal bleeding, weakness, fever, dyspnea, syncope, headache, dizziness, GI bleed, back pain, seizure, CVA, palpatations, mental health, musculoskeletal)? @ -Differential CVA Ischemic stroke, hemorrhagic stroke, brain tumor, atypical migraine, Wernicke's encephalopathy, seizure, multiple sclerosis, meningitis, encephalitis, hypoglycemia, Guillain-Felder, electrolytes disturbance, myasthenia gravis.... This is not meant to be an all-inclusive list EKG interpreted by me (3pts min.). @ -Yes and demonstrates sinus bradycardia with a rate of 59. CT interval 178. QRS 71. QTC 399. No acute ST segment elevations or depressions X-rays interpreted by me (1pt min.). @ -Yes and demonstrates no acute process CT interpreted by me (1pt min.). @ -Yes and demonstrates no acute cranial process U/S interpreted by me (1pt. min.). @ -None done What testing was considered but not performed or refused? (CT, X-rays, U/S, labs)? Why? @ -None What meds were considered but not given or refused? Why? @ -None Did you discuss the management of the patient with other professionals (professionals i.e. DrVaqsuez, PA, CREDIT COLLECTION SPECIALIST, lab, RT, psych nurse, secondary social studies teacher, technical expert, teacher, commanding officer homicide squad, manager case management)? Give summary @ -Spoke with Meagan from [facility] Was smoking cessation discussed for >3mins.? @ -No Was critical care preformed (if so, how long)? @ -No Were there social determinants of health that impacted care today? How? (Homelessness, low income, unemployed, alcoholism, drug addiction, transportation, low edu. Level, literacy, decrease access to med. care, prison, rehab)? @ -No Was there de-escalation of care discussed even if they declined (Discuss DNR or withdrawal of care, Hospice)? DNR status @ -No What co-morbidities impacted this encounter? (DM, HTN, Smoking, COPD, CAD, Cancer, CVA, ARF, Chemo, Hep., AIDS, mental health diagnosis, sleep apnea, morbid obesity)? @ -None Was patient admitted / discharged? Hospital course, mention meds given and route, prescriptions, significant lab abnormalities, going to OR and other pertinent info. @ -Upon arrival patient was placed into room 5. Thorough history and physical exam is performed. NIH is 0. Patient has subjective paresthesias. I did recommend CT and CT angiography. The studies are performed and are negative. Laboratory studies within normal limits. Did discuss results with the patient. Did recommend admission for neurology consultation. Patient was agreeable to this. Spoke with Meagan from [facility] who agreed to admit the patient Undiagnosed new problem with uncertain prognosis? @ -yes Drug Therapy requiring intensive monitoring for toxicity (Heparin, Nitro, Ins ulin, Cardizem)? @ -No Were any procedures done? @ -No Diagnosis/symptom? @ -Acute paresthesias left upper extremity and left face, possible CVA Acute, or Chronic, or Acute on Chronic? @ -Acute Uncomplicated (without systemic symptoms) or Complicated (systemic symptoms)? @ -Complicated Side effects of treatment? @ -No Exacerbation, Progression, or Severe Exacerbation? @ -No Poses a threat to life or bodily function? How? (Chest pain, USA, SD, pneumonia, PE, COPD, DKA, ARF, appy, cholecystitis, CVA, Diverticulitis, Homicidal, Katie cidal, threat to staff... and all critical care pts) @ -Yes patient presents with strokelike symptoms - Lab Data Result diagrams: 03/20/23 04:11 03/20/23 04:11 Lab Results 03/20/23 03/20/23 03/20/23 Range/Units 04:11 04:11 04:11 WBC 10.6 (3.8-10.6) k/uL RBC 4.92 (3.80-5.40) m/uL Hgb 14.2 (11.4-16.0) gm/dL Hct 41.9 (34.0-46.0) % MCV 85.2 (80.0-100.0) fL MCH 28.9 (25.0-35.0) pg MCHC 33.9 (31.0-37.0) g/dL RDW 13.0 (11.5-15.5) % Plt Count 340 (150-450) k/uL MPV 8.7 Neutrophils % 45 % Lymphocytes % 43 % Monocytes % 6 % Eosinophils % 4 % Basophils % 1 % Neutrophils # 4.7 (1.3-7.7) k/uL Lymphocytes # 4.5 (1.0-4.8) k/uL Monocytes # 0.6 (0-1.0) k/uL Eosinophils # 0.4 (0-0.7) k/uL Basophils # 0.1 (0-0.2) k/uL PT 9.5 (9.0-12.0) sec INR 0.9 (<1.2) APTT 21.8 L (22.0-30.0) sec Sodium 140 (137-145) mmol/L Potassium 3.8 (3.5-5.1) mmol/L Chloride 105 (98-107) mmol/L Carbon Dioxide 23 (22-30) mmol/L Anion Gap 12 mmol/L BUN 18 H (7-17) mg/dL Creatinine 0.62 (0.52-1.04) mg/dL Est GFR (CKD-EPI)AfAm >90 (>60 ml/min/1.73 sqM) Est GFR (CKD-EPI)NonAf 90 (>60 ml/min/1.73 sqM) Glucose 109 H (74-99) mg/dL Estimated Ave Glu mg/dL mg/dL Hemoglobin A1c (<=6.0) % Calcium 10.0 (8.4-10.2) mg/dL Total Bilirubin 0.5 (0.2-1.3) mg/dL AST 43 H (14-36) U/L ALT 33 (4-34) U/L Alkaline Phosphatase 118 (38-126) U/L Creatine Kinase 149 H (30-135) U/L Troponin I (0.000-0.034) ng/mL Total Protein 7.7 (6.3-8.2) g/dL Albumin 4.4 (3.5-5.0) g/dL Vitamin B12 (200.0-944.0) pg/mL TSH (0.465-4.680) mIU/L Free T4 (0.78-2.19) ng/dL 03/20/23 03/20/23 03/20/23 Range/Units 04:11 04:11 04:11 WBC (3.8-10.6) k/uL RBC (3.80-5.40) m/uL Hgb (11.4-16.0) gm/dL Hct (34.0-46.0) % MCV (80.0-100.0) fL MCH (25.0-35.0) pg MCHC (31.0-37.0) g/dL RDW (11.5-15.5) % Plt Count (150-450) k/uL MPV Neutrophils % % Lymphocytes % % Monocytes % % Eosinophils % % Basophils % % Neutrophils # (1.3-7.7) k/uL Lymphocytes # (1.0-4.8) k/uL Monocytes # (0-1.0) k/uL Eosinophils # (0-0.7) k/uL Basophils # (0-0.2) k/uL PT (9.0-12.0) sec INR (<1.2) APTT (22.0-30.0) sec Sodium (137-145) mmol/L Potassium (3.5-5.1) mmol/L Chloride (98-107) mmol/L Carbon Dioxide (22-30) mmol/L Anion Gap mmol/L BUN (7-17) mg/dL Creatinine (0.52-1.04) mg/dL Est GFR (CKD-EPI)AfAm (>60 ml/min/1.73 sqM) Est GFR (CKD-EPI)NonAf (>60 ml/min/1.73 sqM) Glucose (74-99) mg/dL Estimated Ave Glu mg/dL 146 mg/dL Hemoglobin A1c 6.7 H (<=6.0) % Calcium (8.4-10.2) mg/dL Total Bilirubin (0.2-1.3) mg/dL AST (14-36) U/L ALT (4-34) U/L Alkaline Phosphatase (38-126) U/L Creatine Kinase (30-135) U/L Troponin I <0.012 (0.000-0.034) ng/mL Total Protein (6.3-8.2) g/dL Albumin (3.5-5.0) g/dL Vitamin B12 635.0 (200.0-944.0) pg/mL TSH 4.990 H (0.465-4.680) mIU/L Free T4 0.97 (0.78-2.19) ng/dL Disposition Clinical Impression: Arm paresthesia, left, Left facial numbness Disposition: ADMITTED IP TO THIS [facility] Condition: Stable Is patient prescribed a controlled substance at d/c from ED?: No Time of Disposition: 05:29 Decision to Admit Reason: Admit from EC Decision Date: 03/20/23 Decision Time: 05:29
--- NOTE | 2023-03-20 04:36 | CT ---
EXAM: CT Head Without Intravenous Contrast CLINICAL HISTORY: Neuro deficit, acute, stroke suspected TECHNIQUE: Axial computed tomography images of the head/brain without intravenous contrast. CTDI is 48.8 mGy and DLP is 1106.9 mGy-cm. This CT exam was performed using one or more of the following dose reduction techniques: automated exposure control, adjustment of the mA and/or kV according to patient size, and/or use of iterative reconstruction technique. COMPARISON: No relevant prior studies available. FINDINGS: Brain: No acute stroke. No hemorrhage. No abnormal extra-axial fluid collection. No significant white matter disease. Ventricles: No hydrocephalus. No midline shift. Bones/joints: Unremarkable. No acute fracture. Soft tissues: Unremarkable. Sinuses: Unremarkable as visualized. No acute sinusitis. IMPRESSION: No acute abnormality.
[2023-03-20 04:44] LABS: ALT 33 U/L (4-34); AST 43 U/L (14-36); African American GFR (CKD) >90 (>60 ml/min/1.73 sqM); Albumin 4.4 g/dL (3.5-5.0); Alkaline Phosphatase 118 U/L (38-126); Anion Gap 12 mmol/L; Basophils # (A) 0.1 k/uL (0-0.2); Basophils % (A) 1 %; Blood Urea Nitrogen 18 mg/dL (7-17); Carbon Dioxide 23 mmol/L (22-30); Chloride 105 mmol/L (98-107); Creatine Kinase 149 U/L (30-135); Eosinophils # (A) 0.4 k/uL (0-0.7); Eosinophils % (A) 4 %; Glucose 109 mg/dL (74-99); HCT 41.9 % (34.0-46.0); HGB 14.2 gm/dL (11.4-16.0); Lymphocytes # (A) 4.5 k/uL (1.0-4.8); Lymphocytes % (A) 43 %; MCH 28.9 pg (25.0-35.0); MCHC 33.9 g/dL (31.0-37.0); MCV 85.2 fL (80.0-100.0); Mean Platelet Volume 8.7; Monocytes # (A) 0.6 k/uL (0-1.0); Monocytes % (A) 6 %; Neutrophils # (A) 4.7 k/uL (1.3-7.7); Neutrophils % (A) 45 %; Non-African American GFR(CKD) 90 (>60 ml/min/1.73 sqM); Platelet Count 340 k/uL (150-450); Potassium 3.8 mmol/L (3.5-5.1); RBC 4.92 m/uL (3.80-5.40); Sodium 140 mmol/L (137-145); Total Bilirubin 0.5 mg/dL (0.2-1.3); Total Protein 7.7 g/dL (6.3-8.2); WBC 10.6 k/uL (3.8-10.6)
[2023-03-20 04:47] LABS: INR 0.9 (<1.2); Partial Thromboplastin Time 21.8 sec (22.0-30.0); Prothrombin Time 9.5 sec (9.0-12.0)
--- NOTE | 2023-03-20 05:00 | CT ---
EXAM: CT Angiography Head With Intravenous Contrast CLINICAL HISTORY: Neuro deficit, acute, stroke suspected TECHNIQUE: Axial computed tomographic angiography images of the head with intravenous contrast. CTDI is 14.9 mGy and DLP is 237 mGy-cm. This CT exam was performed using one or more of the following dose reduction techniques: automated exposure control, adjustment of the mA and/or kV according to patient size, and/or use of iterative reconstruction technique. 3D and MIP reconstructed images were created and reviewed. COMPARISON: CT brain 03/20/2023. FINDINGS: Right internal carotid artery: No acute findings. Intracranial segment is patent with no significant stenosis. No aneurysm. Right anterior cerebral artery: Unremarkable. No occlusion or significant stenosis. No aneurysm. Right middle cerebral artery: Mild stenosis of the distal M1 segment with intact distal runoff. No aneurysm. Right posterior cerebral artery: Unremarkable. No occlusion or significant stenosis. No aneurysm. Right vertebral artery: Unremarkable as visualized. Left internal carotid artery: No acute findings. Intracranial segment is patent with no significant stenosis. No aneurysm. Left anterior cerebral artery: Unremarkable. No occlusion or significant stenosis. No aneurysm. Left middle cerebral artery: Mild stenosis of the distal M1 segment with intact distal runoff. No aneurysm. 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 The left posterior cerebral artery is otherwise unremarkable. No aneurysm. Left vertebral artery: Hypoplastic distal left vertebral artery. Basilar artery: Unremarkable. No occlusion or significant stenosis. No aneurysm. IMPRESSION: No large vessel occlusion. Mild stenosis of the bilateral middle cerebral artery distal M1 segments with intact distal runoff. EXAM: CT Angiography Neck With Intravenous Contrast CLINICAL HISTORY: Neuro deficit, acute, stroke suspected TECHNIQUE: Routine carotid CT angiography protocol was performed with intravenous contrast. NASCET criteria using the distal ICAs for comparison were used for evaluation of stenoses. CTDI is 14.9 mGy and DLP is 237 mGy-cm. This CT exam was performed using one or more of the following dose reduction techniques: automated exposure control, adjustment of the mA and/or kV according to patient size, and/or use of iterative reconstruction technique. 3D and MIP reconstructed images were created and reviewed. COMPARISON: CT cervical spine 04/04/2021. FINDINGS: VASCULATURE: Right common carotid artery: Unremarkable. No occlusion or significant stenosis. No dissection. Right internal carotid artery: Mild calcified plaque at the right carotid bulb without a hemodynamically significant stenosis. No dissection. Right external carotid artery: Unremarkable. No occlusion. Right vertebral artery: Unremarkable. No occlusion or significant stenosis. No dissection. Left common carotid artery: Unremarkable. No occlusion or significant stenosis. No dissection. Left internal carotid artery: Mild calcified plaque at the left carotid bulb without a hemodynamically significant stenosis. No dissection. Left external carotid artery: Unremarkable. No occlusion. Left vertebral artery: Unremarkable. No occlusion or significant stenosis. No dissection. NECK: Bones/joints: Unremarkable. Soft tissues: Unremarkable. Lung apices: Clear. CAROTID STENOSIS REFERENCE USING NASCET CRITERIA: % ICA stenosis = (1 - narrowest ICA diameter/diameter of distal cervical ICA) x 100. Mild - <50% stenosis. Moderate - 50-69% stenosis. Severe - 70-94% stenosis. Near occlusion - 95-99% stenosis. Occluded - 100% stenosis. IMPRESSION: No hemodynamically significant stenosis.
--- NOTE | 2023-03-20 08:13 | XR ---
EXAM: XR Chest, 2 Views CLINICAL HISTORY: ITS.REASON XR Reason: altered mental status TECHNIQUE: Frontal and lateral views of the chest. COMPARISON: 07/25/19 FINDINGS: Lungs: Unremarkable. No consolidation. Pleural space: Unremarkable. No pneumothorax. Heart: Unremarkable. No cardiomegaly. Mediastinum: Unremarkable. Bones/joints: Unremarkable. Vasculature: Mildly tortuous thoracic aorta. IMPRESSION: 1. Stable chest. 2. No acute disease
[2023-03-20] MEDS ORDERED: DEXTROSE 50% SYRINGE 50 ML IVP PRN ×2 (10:12)
[2023-03-20 10:30] LABS: Glucose,Whole Blood 110 mg/dL (70-110)
[2023-03-20 12:06] LABS: T4, Free (Free Thyroxine) 0.97 ng/dL (0.78-2.19)
[2023-03-20 12:59] LABS: Glucose,Whole Blood 163 mg/dL (70-110)
--- NOTE | 2023-03-20 13:06 | P.CNNES ---
History of Present Illness Consult date: 03/20/23 Requesting physician: Fernanda Tamayo Reason for Consult: left facial paresthesia History of Present Illness: This is a 73-year-old woman who presented to the emergency department because of the left facial and left upper extremity numbness. Patient stated that her symptoms began around 9 AM yesterday he started with the left wrist numbness ascended all the way to involving the left upper extremity and then it got worse and involved the left face by 9 PM. As a result she wanted to come to the hospital for further management. She denies any weakness. Denies any difficulty getting words out, swallowing, denies any numbness in the lower extremity. She stated that she had TIA in the past and she had similar sympt oms. She has chronic neck pain and she had the surgery in the neck and that that is chronic and denies any worsening of the neck pain. She feels her numbness is improving. Patient has history of diabetes as well as hypertension. She takes aspirin 81 mg daily. Some of the workup during his hospital visit consisted of: TSH is 4.990. Free T4 is 0.97. CT head is reported as no acute abnormality. I personally reviewed the CT and I agree there is no acute subacute ischemia. There is no bleed. CTA head and neck was reported as no hemodynamically significant stenosis. EKG report is reviewed. Per the ED notes patient NIH stroke scale was a 0. No IV TPA since the patient's symptoms has resolved and the risk outweighed the benefit. Review of Systems Review of system: The 12 point system was reviewed and apparent positive and negative per HPI. Past Medical History Past Medical History: CVA/TIA, Eye Disorder, GERD/Reflux, Hyperlipidemia, Hypertension Additional Past Medical History / Comment(s): TIA, gastric ulcer, constipation, chronic back pain, cervical and back DDD, R eye detached retina with surgery, whooping cough as a child History of Any Multi-Drug Resistant Organisms: None Reported Past Surgical History: Section, Hysterectomy, Tonsillectomy, Tubal Ligation Additional Past Surgical History / Comment(s): R eye surgery for detached retina, bilateral eye lasik surgery for vision, bilateral eye cataract removals/lens implants, EGD, colonoscopy. Past Anesthesia/Blood Transfusion Reactions: No Reported Reaction Past Psychological History: Depression Smoking Status: Never smoker Past Alcohol Use History: Occasional Past Drug Use History: None Reported - Past Family History Father History Unknown: Yes Additional Family Medical History / Comment(s): Father in a MVA at the age of 35 yrs. Mother Family Medical History: Coronary Artery Disease (CAD), Diabetes Mellitus, Myocardial Infarction (DC), Renal Disease Additional Family Medical History / Comment(s): Mother is 87yrs old. Pt does not recall at what age mother had a DC. Medications and Allergies Home Medications Medication Instructions Recorded Confirmed Type Lisinopril-Hctz 20-25 mg 1 tab PO HS 07/25/19 03/20/23 History [Zestoretic 20-25] Metoprolol Tartrate [Lopressor] 25 mg PO HS 07/25/19 03/20/23 History Pantoprazole [Protonix] 40 mg PO HS 07/25/19 03/20/23 History Aspirin EC [Ecotrin Low Dose] 81 mg PO DAILY 04/04/21 03/20/23 History Cholecalciferol [Vitamin D3 (25 25 mcg PO DAILY 04/04/21 03/20/23 History Mcg = 1000 Iu)] Meloxicam [Mobic] 7.5 mg PO BID 04/04/21 03/20/23 History Vitamin B Complex 1 cap PO DAILY 04/04/21 03/20/23 History HYDROcodone/APAP 5-325MG [[facility] 5] 1 tab PO BID PRN 03/20/23 03/20/23 History metFORMIN HCL ER [Glucophage XR] 500 mg PO AC-SUPPER PRN 03/20/23 03/20/23 History Allergies Allergy/AdvReac Type Severity Reaction Status Date / Time ampicillin Allergy Rash/Hives Verified 03/20/23 07:57 nickel Allergy Rash/Hives Verified 03/20/23 07:57 Physical Examination - Vital Signs Vital Signs: Vital Signs Temp Pulse Resp BP Pulse Ox 03/20/23 10:16 63 18 153/68 98 03/20/23 08:20 77 18 148/72 93 L 03/20/23 06:40 58 L 17 184/75 95 03/20/23 05:53 55 L 18 176/74 97 03/20/23 03:26 97.9 F 69 16 210/75 98 Intake and Output 03/19/23 03/20/23 03/20/23 22:59 06:59 14:59 Other: Weight 64.41 kg GENERAL: The patient is lying in bed and is not in acute distress. NEUROLOGICAL: Higher mental function: The patient is awake, alert, oriented to self, place and time. Patient is following commands. No aphasia and no neglect. Cranial nerves: The pupils are round, equal and reactive to light and accommodation. Visual lewis are full to confrontation throughout. Extraocular movement is intact no nystagmus is noted. Facial sensation is normal to touch throughout. The facial strength is normal throughout. Hearing is moderately decreased l bilaterally to hand rub. Tongue is midline and moved [id number] without any difficulty. No dysarthria is noted. Shoulder shrug is normal bilaterally. Motor: The strength is 5 over 5 throughout. Normal tone and bulk. Cerebellum: Normal finger to nose bilaterally. Sensation: Sensation is normal to touch throughout. Reflexes (right/left): 2+ throughout. Plantars are mute bilaterally. Results - Laboratory Findings CBC and BMP: 03/20/23 04:11 03/20/23 04:11 Abnormal Lab Findings: Abnormal Labs 03/20/23 03/20/23 03/20/23 04:11 04:11 04:11 APTT 21.8 L BUN 18 H Glucose 109 H AST 43 H Creatine Kinase 149 H TSH 4.990 H Assessment and Plan Assessment: This is a 73-year-old woman who presented because of left paresthesia over the left side of the face as well as left upper extremity at. Episode occurred on 03/19/2023 at around 9 AM that got worse at nighttime. On presentation the her NIH stroke scale was a 0. Paresthesia over left face as well as left upper extremity is likely due to the transient ischemic attack. History of TIA (with similar presentat as above) Chronic neck pain status post surgery in the past and that is a chronic area no worsening of the neck pain Diabetes mellitus Hypertension Plan: I ordered MRI of the brain to rule out any acute ischemia not seen on the CT. Patient is resumed on her home dose of aspirin 81 mg. In addition I start the patient on Plavix 75 mg daily. = She is on Lipitor 40 mg daily at bedtime which is sufficient for secondary stroke prophylaxis. 2-D echo was ordered and is pending Hemoglobin A1c, vitamin B12, lipid panel is ordered pending Continue neuro checks On cardiac monitoring PT OT and FOREST [employer] PREVENTION SPECIALIST are consulted We'll defer the rest of the medical management to primary team For DVT prophylaxis I start the patient on subcu heparin 5000 units every 12 hours The plan discussed with the patient and her was at bedside Thank you for the consultation Time with Patient: Greater than 30
[2023-03-20] MEDS: CLOPIDOGREL 75 MG TAB PO SCH (13:20)
[2023-03-20] MEDS: ASPIRIN 81 MG PO SCH (13:20)
[2023-03-20] MEDS: CHOLECALCIFEROL 25 MCG (1000 IU) TABLET PO SCH (13:20)
[2023-03-20] MEDS: INSULIN ASPART (NovoLOG) 100 UNIT/ML VIAL SQ SCH ×3 (13:21→21:01)
[2023-03-20] MEDS: HYDROcodone/APAP 5-325MG 1 EACH TAB PO PRN (13:30)
--- NOTE | 2023-03-20 14:09 | P.HPIM ---
History of Present Illness H&P Date: 03/20/23 History of present illness; patient is a 73-year-old lady with past medical hist ory significant for hypertension, hyperlipidemia, diabetes mellitus in the ER because of left arm numbness. Patient stated that she was all right when while working at the [employer] she started noticing that her left arm was getting numb, numbness started first in her hand and then later progressed to her whole left arm and ascending into the left side of her face. Patient denied any slurred speech , no complain of any facial droop. Denied any weakness or numbness of the lower extremities. Patient did feel that her left arm was weaker than the right. Denied any headache. Denied any visual or hearing problems. Because of this left arm numbness, patient came to the ER Initial lab work done in the ER showed WBC 10.6, hemoglobin 14.2, platelet count 340, sodium 140, potassium 3.8, BUN 18, creatinine 0.62, AST 43, ALT 33 EKG done in the ER showed heart rate of 59 bpm, QRS 71, no acute ST segment changes seen, no T-wave inversions Chest x-ray done in the ER showed no acute disease CT brain done showed no acute abnormality CTA head and neck showed no significant stenosis Patient admitted to medicine service REVIEW OF SYSTEMS: CONSTITUTIONAL: No fever, no malaise, no fatigue. HEENT: No recent visual problems or hearing problems. Denied any sore throat. CARDIOVASCULAR: No chest pain, orthopnea, PND, no palpitations, no syncope. PULMONARY: No shortness of breath, no cough, no hemoptysis. GASTROINTESTINAL: No diarrhea, no nausea, no vomiting, no abdominal pain. NEUROLOGICAL: No headaches, as mentioned in HPI HEMATOLOGICAL: Denies any bleeding or petechiae. GENITOURINARY: Denies any burning micturition, frequency, or urgency. MUSCULOSKELETAL/RHEUMATOLOGICAL: Denies any joint pain, swelling, or any muscle pain. ENDOCRINE: Denies any polyuria or polydipsia. The rest of the 14-point review of systems is negative. PHYSICAL EXAMINATION: GENERAL: The patient is alert and oriented x3, not in any acute distress. Well developed, well nourished. HEENT: Pupils are round and equally reacting to light. EOMI. No scleral icterus. No conjunctival pallor. Normocephalic, atraumatic. No pharyngeal erythema. No thyromegaly. CARDIOVASCULAR: S1 and S2 present. No murmurs, rubs, or gallops. PULMONARY: Chest is clear to auscultation, no wheezing or crackles. ABDOMEN: Soft, nontender, nondistended, normoactive bowel sounds. No palpable organomegaly. MUSCULOSKELETAL: No joint swelling or deformity. EXTREMITIES: No cyanosis, clubbing, or pedal edema. NEUROLOGICAL: Gross neurological examination did not reveal any focal deficits. SKIN: No rashes. Assessment and plan TIA Hypertensive emergency Hyperlipidemia Diabetes mellitus Monitor vital signs Monitor CBC Monitor CMP Continue telemetry monitoring Ordered lipid panel Ordered HbA1c level Continue aspirin, start Lipitor Ordered 2-D echo Results of CTA head and neck noted. Consult neurology Labs and medication were reviewed.. Continue same treatment. Continue with symptomatic treatment. Resume home medication. Monitor labs and vitals. DVT and GI prophylaxis. Further recommendations as per clinical course of the patient Past Medical History Past Medical History: CVA/TIA, Eye Disorder, GERD/Reflux, Hyperlipidemia, Hypertension Additional Past Medical History / Comment(s): TIA, gastric ulcer, constipation, chronic back pain, cervical and back DDD, R eye detached retina with surgery, whooping cough as a child History of Any Multi-Drug Resistant Organisms: None Reported Past Surgical History: Section, Hysterectomy, Tonsillectomy, Tubal Ligation Additional Past Surgical History / Comment(s): R eye surgery for detached retina, bilateral eye lasik surgery for vision, bilateral eye cataract removals/lens implants, EGD, colonoscopy. Past Anesthesia/Blood Transfusion Reactions: No Reported Reaction Past Psychological History: Depression Smoking Status: Never smoker Past Alcohol Use History: Occasional Past Drug Use History: None Reported - Past Family History Father History Unknown: Yes Additional Family Medical History / Comment(s): Father in a MVA at the age of 35 yrs. Mother Family Medical History: Coronary Artery Disease (CAD), Diabetes Mellitus, Myocardial Infarction (MT), Renal Disease Additional Family Medical History / Comment(s): Mother is 87yrs old. Pt does not recall at what age mother had a MT. Medications and Allergies Home Medications Medication Instructions Recorded Confirmed Type Lisinopril-Hctz 20-25 mg 1 tab PO HS 07/25/19 03/20/23 History [Zestoretic 20-25] Metoprolol Tartrate [Lopressor] 25 mg PO HS 07/25/19 03/20/23 History Pantoprazole [Protonix] 40 mg PO HS 07/25/19 03/20/23 History Aspirin EC [Ecotrin Low Dose] 81 mg PO DAILY 04/04/21 03/20/23 History Cholecalciferol [Vitamin D3 (25 25 mcg PO DAILY 04/04/21 03/20/23 History Mcg = 1000 Iu)] Meloxicam [Mobic] 7.5 mg PO BID 04/04/21 03/20/23 History Vitamin B Complex 1 cap PO DAILY 04/04/21 03/20/23 History HYDROcodone/APAP 5-325MG [Speculator 5] 1 tab PO BID PRN 03/20/23 03/20/23 History Allergies Allergy/AdvReac Type Severity Reaction Status Date / Time ampicillin Allergy Rash/Hives Verified 03/20/23 07:57 nickel Allergy Rash/Hives Verified 03/20/23 07:57 Physical Exam Vitals: Vital Signs Temp Pulse Resp BP Pulse Ox 03/20/23 08:20 77 18 148/72 93 L 03/20/23 06:40 58 L 17 184/75 95 03/20/23 05:53 55 L 18 176/74 97 03/20/23 03:26 97.9 F 69 16 210/75 98 Intake and Output 03/19/23 03/20/23 03/20/23 22:59 06:59 14:59 Other: Weight 64.41 kg Results CBC & Chem 7: 03/20/23 04:11 03/20/23 04:11 Labs: Abnormal Lab Results - Last 24 Hours (Table) 03/20/23 03/20/23 Range/Units 04:11 04:11 APTT 21.8 L (22.0-30.0) sec BUN 18 H (7-17) mg/dL Glucose 109 H (74-99) mg/dL AST 43 H (14-36) U/L Creatine Kinase 149 H (30-135) U/L
[2023-03-20 17:10] LABS: Glucose,Whole Blood 134 mg/dL (70-110)
[2023-03-20 19:47] LABS: Glucose,Whole Blood 170 mg/dL (70-110)
[2023-03-20] MEDS: ATORVASTATIN 40 MG TAB PO SCH (21:01)
[2023-03-20] MEDS: HEPARIN SODIUM,PORCINE/PF 5,000 UNIT/0.5 ML SYRINGE SQ SCH ×2 (21:01→21:02)
[2023-03-20] MEDS: PANTOPRAZOLE 40 MG TABLET PO SCH (21:01)
[2023-03-20] MEDS: METOPROLOL TARTRATE 25 MG TAB PO SCH (21:05)
[2023-03-21] MEDS: HYDROcodone/APAP 5-325MG 1 EACH TAB PO PRN (00:30)
[2023-03-21 05:53] LABS: Glucose,Whole Blood 111 mg/dL (70-110)
[2023-03-21] MEDS: INSULIN ASPART (NovoLOG) 100 UNIT/ML VIAL SQ SCH ×4 (05:57→20:36)
--- NOTE | 2023-03-21 08:23 | CA ---
Transthoracic Echo Report Name: Harriet Wilder Age: 73 Gender: F : 1950 Exam Date: 03/20/2023 11:59 Exam Location: [place] [facility] Ht (in): 59 Wt (lb): 142 Ordering Physician: Jayy Montejo MD Attending/Referring Phys: [employer] Crewman Carlos Goodwin Procedure CPT: Indications: Slurred speech, CVA Cardiac Hx: Technical Quality: Fair Contrast 1: Total Dose (mL): Contrast 2: Total Dose (mL): MEASUREMENTS (Male / Female) Normal Values 2D ECHO LV Diastolic Diameter PLAX 3.7 cm 4.2 - 5.9 / 3.9 - 5.3 cm LV Systolic Diameter PLAX 2.6 cm IVS Diastolic Thickness 1.1 cm 0.6 - 1.0 / 0.6 - 0.9 cm LVPW Diastolic Thickness 1.0 cm 0.6 - 1.0 / 0.6 - 0.9 cm LV Relative Wall Thickness 0.6 RV Internal Dim ED PLAX 2.6 cm LVOT Diameter 2.0 cm Aortic Root Diameter 2.9 cm LA Systolic Diameter LX 1.9 cm 3.0 - 4.0 / 2.7 - 3.8 cm LV Diastolic Volume MOD BP 40.8 cm??? 67 - 155 / 56 - 104 cm??? LV Systolic Volume MOD BP 10.4 cm??? - 58 / 19 - 49 cm??? LV Ejection Fraction MOD BP 74.6 % >= 55 % LV Cardiac Index MOD BP 1154.1 cm???/min???m??? LV Diastolic Volume MOD 4C 42.6 cm??? LV Systolic Volume MOD 4C 9.6 cm??? LV Ejection Fraction MOD 4C 77.5 % LV Cardiac Index MOD 4C 1251.9 cm???/min???m??? LV Diastolic Length 4C 6.4 cm LV Systolic Length 4C 5.1 cm LV Diastolic Volume MOD 2C 37.5 cm??? LV Systolic Volume MOD 2C 11.1 cm??? LV Ejection Fraction MOD 2C 70.5 % LV Cardiac Index MOD 2C 1003.5 cm???/min???m??? LV Diastolic Length 2C 6.1 cm LV Systolic Length 2C 5.0 cm LA Volume 20.4 cm??? 18 - 58 / 22 - 52 cm??? Ascending Aorta Diameter 2.8 cm DOPPLER AV Peak Velocity 147.5 cm/s AV Peak Gradient 8.7 mmHg LVOT Peak Velocity 115.3 cm/s LVOT Peak Gradient 5.3 mmHg AV Area Cont Eq pk 2.4 cm??? MV Peak Velocity 100.9 cm/s MV Peak Gradient 4.1 mmHg MV Mean Velocity 46.3 cm/s MV Mean Gradient 1.1 mmHg MV Velocity Time Integral 30.4 cm Mitral E Point Velocity 78.3 cm/s Mitral A Point Velocity 99.9 cm/s Mitral E to A Ratio 0.8 MV Deceleration Time 213.2 ms PV Peak Velocity 88.7 cm/s PV Peak Gradient 3.1 mmHg FINDINGS Left Ventricle Normal LV size. Left ventricular ejection fraction is estimated at 55-60 %. Mildly increased septal wall thickness. No significant regional wall motion abnormality Right Ventricle Normal right ventricular size. Right Atrium Normal right atrial size. Left Atrium Normal left atrial size. Mitral Valve Structurally normal mitral valve. Aortic Valve Moderate aortic valve sclerosis with no evidence of stenosis. No regurgitation seen Tricuspid Valve Structurally normal tricuspid valve. Trace TR. Pulmonic Valve Pulmonic valve not well visualized. No pulmonic regurgitation. Pericardium No pericardial effusion Aorta Normal size aortic root and proximal ascending aorta. CONCLUSIONS Normal LV size. Left ventricular ejection fraction is estimated at 55-60 %. Mildly increased septal wall thickness. No significant regional wall motion abnormality. Aortic valve sclerosis No significant valvular dysfunction No prior echo to compare with Previewed by: Dr Hu Young (Electronically Signed) Final Date: 20 March 2023 13:37
[2023-03-21] MEDS: HEPARIN SODIUM,PORCINE/PF 5,000 UNIT/0.5 ML SYRINGE SQ SCH ×2 (08:53→20:40)
[2023-03-21] MEDS: CLOPIDOGREL 75 MG TAB PO SCH (08:53)
[2023-03-21] MEDS: ASPIRIN 81 MG PO SCH (08:53)
[2023-03-21] MEDS: CHOLECALCIFEROL 25 MCG (1000 IU) TABLET PO SCH (08:53)
[2023-03-21] MEDS: NON FORMULARY DRUG (Vitamin B Complex [Vitamin B Complex] 1 EACH Capsule) PO SCH (10:23)
[2023-03-21 11:32] LABS: Glucose,Whole Blood 166 mg/dL (70-110)
--- NOTE | 2023-03-21 14:15 | P.PN ---
Subjective Progress Note Date: 03/21/23 patient is a 73-year-old lady with past medical history significant for hypertension, hyperlipidemia, diabetes mellitus in the ER because of left arm numbness. Patient stated that she was all right when while working at the [employer] she started noticing that her left arm was getting numb, numbness started first in her hand and then later progressed to her whole left arm and ascending into the left side of her face. Patient denied any slurred speech , no complain of any facial droop. Denied any weakness or numbness of the lower extremities. Patient did feel that her left arm was weaker than the right. Denied any headache. Denied any visual or hearing problems. Because of this left arm numbness, patient came to the ER Initial lab work done in the ER showed WBC 10.6, hemoglobin 14.2, platelet count 340, sodium 140, potassium 3.8, BUN 18, creatinine 0.62, AST 43, ALT 33 EKG done in the ER showed heart rate of 59 bpm, QRS 71, no acute ST segment changes seen, no T-wave inversions Chest x-ray done in the ER showed no acute disease CT brain done showed no acute abnormality CTA head and neck showed no significant stenosis Patient admitted to medicine service 03/21. Patient seen and examined. Stated numbness has improved, now involving only the face, complaining of some blurred vision REVIEW OF SYSTEMS: CONSTITUTIONAL: No fever, no malaise,. CARDIOVASCULAR: No chest pain, no palpitations, no syncope. PULMONARY: No shortness of breath, no cough, GASTROINTESTINAL: No diarrhea, no nausea, no vomiting, no abdominal pain. NEUROLOGICAL: No headaches, no weakness, PHYSICAL EXAMINATION: GENERAL: The patient is alert and oriented x3, not in any acute distress. Well developed, well nourished. HEENT: Pupils are round and equally reacting to light. EOMI. No scleral icterus. No conjunctival pallor. Normocephalic, atraumatic. No pharyngeal erythema. No thyromegaly. CARDIOVASCULAR: S1 and S2 present. No murmurs, rubs, or gallops. PULMONARY: Chest is clear to auscultation, no wheezing or crackles. ABDOMEN: Soft, nontender, nondistended, normoactive bowel sounds. No palpable organomegaly. MUSCULOSKELETAL: No joint swelling or deformity. EXTREMITIES: No cyanosis, clubbing, or pedal edema. NEUROLOGICAL: Gross neurological examination did not reveal any focal deficits. SKIN: No rashes. Assessment and plan TIA Hypertensive emergency Hyperlipidemia Diabetes mellitus Monitor vital signs Monitor CBC Monitor CMP Continue telemetry monitoring Ordered lipid panel HbA1c level was 6.7 Continue aspirin, Lipitor, started on Plavix MRI brain pending 2-D echo done showed normal LV size, normal LV systolic function, mildly increased septal wall thickness Results of CTA head and neck noted. Follow-up on neurology recommendations Labs and medication were reviewed.. Continue same treatment. Continue with symptomatic treatment. Resume home medication. Monitor labs and vitals. DVT and GI prophylaxis. Further recommendations as per clinical course of the patient Dictation was produced using [employer] dictation software. please excuse any grammatical, word or spelling errors. Objective - Vital Signs Vital signs: Vital Signs Temp 97.9 F 03/21/23 08:00 Pulse 62 03/21/23 08:00 Resp 17 03/21/23 08:00 BP 152/81 03/21/23 08:00 Pulse Ox 97 03/21/23 08:00 FiO2 Intake & Output 03/20/23 03/21/23 03/21/23 18:59 06:59 18:59 Intake Total 240 210 110 Balance 240 210 110 Intake: IV 10 Invasive Line 1 10 Oral 240 200 110 Other: Voiding Method Toilet Toilet # Voids 1 - Labs CBC & Chem 7: 03/20/23 04:11 03/20/23 04:11 Labs: Abnormal Lab Results - Last 24 Hours (Table) 03/20/23 03/20/23 03/20/23 Range/Units 04:11 04:11 12:57 POC Glucose (mg/dL) 163 H (70-110) mg/dL Hemoglobin A1c 6.7 H (<=6.0) % TSH 4.990 H (0.465-4.680) mIU/L 03/20/23 03/20/23 03/21/23 Range/Units 17:09 19:45 05:47 POC Glucose (mg/dL) 134 H 170 H 111 H (70-110) mg/dL Hemoglobin A1c (<=6.0) % TSH (0.465-4.680) mIU/L
[2023-03-21 14:41] LABS: Chol/HDL Ratio 3.87 Ratio; LDL Cholesterol,Calculated 112.7 mg/dL (0.0-131.0)
--- NOTE | 2023-03-21 15:49 | P.PN ---
Subjective Progress Note Date: 03/21/23 I am following-up seeing the patient. It seems the patient continues to have some mild left the paresthesia over the left side of the face mostly in the cheek and the lateral side of the face. She also felt her left vision is blurry as well. Otherwise no new neurological issues at the Objective - Vital Signs Vital signs: Vital Signs Temp 97.9 F 03/21/23 11:35 Pulse 64 03/21/23 11:35 Resp 17 03/21/23 11:35 BP 146/76 03/21/23 11:35 Pulse Ox 95 03/21/23 11:35 FiO2 Intake & Output 03/20/23 03/21/23 03/21/23 18:59 06:59 18:59 Intake Total 240 210 220 Balance 240 210 220 Intake: IV 10 Invasive Line 1 10 Oral 240 200 220 Other: Voiding Method Toilet Toilet # Voids 1 - Exam GENERAL: The patient is lying in bed and is not in acute distress. NEUROLOGICAL: Higher mental function: The patient is awake, alert, oriented to self, place and time. Patient is following commands. No aphasia and no neglect. Cranial nerves: The pupils are round, equal and reactive to light and accommodation. Visual lewis are full to confrontation throughout. Extraocular movement is intact no nystagmus is noted. Facial sensation is normal to touch throughout. The facial strength is normal throughout. Hearing is moderately de creased l bilaterally to hand rub. Tongue is midline and moved [id number] without any difficulty. No dysarthria is noted. Shoulder shrug is normal bilaterally. Motor: The strength is 5 over 5 throughout. Normal tone and bulk. Cerebellum: Normal finger to nose bilaterally. Sensation: Sensation is normal to touch throughout. Reflexes (right/left): 2+ throughout. Plantars are mute bilaterally. Some of the workup during his hospital visit consisted of: Lipid panel is triglycerides 182, cholesterol is 201, LDLs 112 and HDL is 51. TSH is 4.990. Free T4 is 0.97. HEENT hemoglobin A1c is 6.7. CT head is reported as no acute abnormality. I personally reviewed the CT and I agree there is no acute subacute ischemia. There is no bleed. CTA head and neck was reported as no hemodynamically significant stenosis. EKG report is reviewed. 2D echo: It is reported as normal left ventricle size. Ejection fraction 55-60. Mildly increased septal wall thickness. No signal regional wall motion abnormality. Aortic valve sclerosis. No significant valvular dysfunction. - Labs CBC & Chem 7: 03/20/23 04:11 03/20/23 04:11 Labs: Abnormal Lab Results - Last 24 Hours (Table) 03/20/23 03/20/23 03/20/23 Range/Units 04:11 17:09 19:45 POC Glucose (mg/dL) 134 H 170 H (70-110) mg/dL Hemoglobin A1c 6.7 H (<=6.0) % Triglycerides (0.00-149.00) mg/dL Cholesterol (0.00-200.00) mg/dL 03/21/23 03/21/23 03/21/23 Range/Units 05:47 06:46 11:25 POC Glucose (mg/dL) 111 H 166 H (70-110) mg/dL Hemoglobin A1c (<=6.0) % Triglycerides 182.00 H (0.00-149.00) mg/dL Cholesterol 201.00 H (0.00-200.00) mg/dL Assessment and Plan Assessment: This is a 73-year-old woman who presented because of left paresthesia over the left side of the face as well as left upper extremity at. Episode occurred on 03/19/2023 at around 9 AM that got worse at nighttime. On presentation the her NIH stroke scale was a 0. Paresthesia over left face as well as left upper extremity. Then overnight noticed blurry vision left eye:Likely due to the transient ischemic attack. History of TIA (with similar presentat as above) Chronic neck pain status post surgery in the past and that is a chronic area no worsening of the neck pain Diabetes mellitus Hypertension Plan: MRI of the brain to rule out any acute ischemia not seen on the CT: Pending. Patient is resumed on her home dose of aspirin 81 mg. In addition I start the patient on Plavix 75 mg daily. She is on Lipitor 40 mg daily at bedtime which is sufficient for secondary stroke prophylaxis. For stroke recommend LDL <70. Continue neuro checks On cardiac monitoring PT OT and CREDIT CONTROL OFFICER are consulted We'll defer the rest of the medical management to primary team For DVT prophylaxis n subcu heparin 5000 units every 12 hours The plan discussed with the patient and her was at bedside Time with Patient: Less than 30
[2023-03-21 16:19] LABS: Glucose,Whole Blood 138 mg/dL (70-110)
[2023-03-21 20:13] LABS: Glucose,Whole Blood 113 mg/dL (70-110)
[2023-03-21] MEDS: PANTOPRAZOLE 40 MG TABLET PO SCH (20:39)
[2023-03-21] MEDS: METOPROLOL TARTRATE 25 MG TAB PO SCH (20:39)
[2023-03-21] MEDS: ATORVASTATIN 40 MG TAB PO SCH (20:39)
[2023-03-22 06:11] LABS: Glucose,Whole Blood 116 mg/dL (70-110)
[2023-03-22] MEDS: INSULIN ASPART (NovoLOG) 100 UNIT/ML VIAL SQ SCH ×4 (06:14→21:27)
[2023-03-22] MEDS: ASPIRIN 81 MG PO SCH (08:16)
[2023-03-22] MEDS: CLOPIDOGREL 75 MG TAB PO SCH (08:16)
[2023-03-22] MEDS: CHOLECALCIFEROL 25 MCG (1000 IU) TABLET PO SCH (08:16)
[2023-03-22] MEDS: HEPARIN SODIUM,PORCINE/PF 5,000 UNIT/0.5 ML SYRINGE SQ SCH ×2 (08:16→21:27)
[2023-03-22] MEDS: NON FORMULARY DRUG (Vitamin B Complex [Vitamin B Complex] 1 EACH Capsule) PO SCH (08:16)
[2023-03-22] MEDS ORDERED: LORazepam 2 MG/ML INJ IV PRN (10:25)
[2023-03-22 10:45] VITALS: BMI 28.6
[2023-03-22 11:35] LABS: Glucose,Whole Blood 99 mg/dL (70-110)
--- NOTE | 2023-03-22 11:42 | MR ---
EXAMINATION TYPE: MR brain wo con DATE OF EXAM: 03/22/2023 COMPARISON: CT scan 03/20/2023 HISTORY: Left sided paresthesia, CVA TECHNIQUE: T1-weighted sagittal, T2, FLAIR, and diffusion axial, and T2 coronal coronal views of the brain are submitted. FINDINGS: There is no evidence of acute ischemia. Mild to moderate generalized degenerative change. There are s cattered focal areas of abnormal signal throughout the white matter measuring 5 mm or less which are nonspecific but most typical of remote white matter ischemia. Changes of chronic mastoiditis.. Orbits are symmetric. Mild changes of chronic sinusitis. Sella turcica has a normal appearance. There is cord compression of the cervical medullary junction with abnormal signal seen in distal spin al cord with greatest compression involving left margin of the spinal cord. There is a large area of abnormal signal posterior to the C1-C2 articulation may represent mass or large pannus formation. Abn ormal signal within the spinal cord suggests spinal cord edema, myelitis or myelomalacia. Report is c alled to the patient's nurse Adriana 11:15 AM 03/22/2003. There is a diminutive vertebrobasilar system. Correlate for vertebrobasilar insufficiency. IMPRESSION: 1. 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 There is abnormal signal seen in upper cervical spine spinal cord with greatest compression involving left margin of the spinal cord. There is a large area of abnormal signal posterior to the C1-C2 brian culation may represent mass or large pannus formation. Abnormal signal within the spinal cord suggest s spinal cord edema, myelitis or myelomalacia. 2. Recommend MRI of the cervical spine. A [place] critical message alert has been initiated for Elliott Martini MD via the [employer] System on 03/22/2023 11:29 AM. This message alert has been sent to Elliott Martini MD vi a the preferences provided by the clinician for the receipt of Radiology Critical Findings. Message I D [id number].
[2023-03-22] MEDS ORDERED: ALPRAZolam 1 MG TAB PO STA (12:39)
[2023-03-22] MEDS: LISINOPRIL-HCTZ 20-25 MG 1 EACH TAB PO SCH (12:43)
--- NOTE | 2023-03-22 13:17 | P.PN ---
Subjective Progress Note Date: 03/22/23 patient is a 73-year-old lady with past medical history significant for hypertension, hyperlipidemia, diabetes mellitus in the ER because of left arm numbness. Patient stated that she was all right when while working at the [employer] [employer] she started noticing that her left arm was getting numb, numbness started first in her hand and then later progressed to her whole left arm and ascending into the left side of her face. Patient denied any slurred speech , no complain of any facial droop. Denied any weakness or numbness of the lower extremities. Patient did feel that her left arm was weaker than the right. Denied any headache. Denied any visual or hearing problems. Because of this left arm numbness, patient came to the ER Initial lab work done in the ER showed WBC 10.6, hemoglobin 14.2, platelet count 340, sodium 140, potassium 3.8, BUN 18, creatinine 0.62, AST 43, ALT 33 EKG done in the ER showed heart rate of 59 bpm, QRS 71, no acute ST segment changes seen, no T-wave inversions Chest x-ray done in the ER showed no acute disease CT brain done showed no acute abnormality CTA head and neck showed no significant stenosis Patient admitted to medicine service 03/21. Patient seen and examined. Stated numbness has improved, now involving only the face, complaining of some blurred vision 03/22. Patient seen and examined. MRI pending. REVIEW OF SYSTEMS: CONSTITUTIONAL: No fever, no malaise,. CARDIOVASCULAR: No chest pain, no palpitations, no syncope. PULMONARY: No shortness of breath, no cough, GASTROINTESTINAL: No diarrhea, no nausea, no vomiting, no abdominal pain. NEUROLOGICAL: No headaches, no weakness, PHYSICAL EXAMINATION: GENERAL: The patient is alert and oriented x3, not in any acute distress. Well developed, well nourished. HEENT: Pupils are round and equally reacting to light. EOMI. No scleral icterus. No conjunctival pallor. Normocephalic, atraumatic. No pharyngeal erythema. No thyromegaly. CARDIOVASCULAR: S1 and S2 present. No murmurs, rubs, or gallops. PULMONARY: Chest is clear to auscultation, no wheezing or crackles. ABDOMEN: Soft, nontender, nondistended, normoactive bowel sounds. No palpable o rganomegaly. MUSCULOSKELETAL: No joint swelling or deformity. EXTREMITIES: No cyanosis, clubbing, or pedal edema. NEUROLOGICAL: Gross neurological examination did not reveal any focal deficits. SKIN: No rashes. Assessment and plan TIA Hypertensive emergency Hyperlipidemia Diabetes mellitus Monitor vital signs Monitor CBC Monitor CMP Continue telemetry monitoring Ordered lipid panel HbA1c level was 6.7 Continue aspirin, Lipitor, started on Plavix MRI brain pending 2-D echo done showed normal LV size, normal LV systolic function, mildly increased septal wall thickness Results of CTA head and neck noted. Follow-up on neurology recommendations Labs and medication were reviewed.. Continue same treatment. Continue with symptomatic treatment. Resume home medication. Monitor labs and vitals. DVT and GI prophylaxis. Further recommendations as per clinical course of the patient Dictation was produced using [employer] dictation software. please excuse any grammatical, word or spelling errors. Objective - Vital Signs Vital signs: Vital Signs Temp 97.9 F 03/22/23 08:00 Pulse 65 03/22/23 08:00 Resp 16 03/22/23 08:00 BP 101/76 03/22/23 08:00 Pulse Ox 97 03/22/23 08:00 FiO2 Intake & Output 03/21/23 03/22/23 03/22/23 18:59 06:59 18:59 Intake Total 460 130 600 Balance 460 130 600 Intake: IV 10 Invasive Line 1 10 Oral 460 120 600 Other: Voiding Method Toilet Toilet # Voids 3 1 # Bowel Movements 1 - Labs CBC & Chem 7: 03/20/23 04:11 03/20/23 04:11 Labs: Abnormal Lab Results - Last 24 Hours (Table) 03/21/23 03/21/23 03/21/23 Range/Units 06:46 11:25 16:18 POC Glucose (mg/dL) 166 H 138 H (70-110) mg/dL Triglycerides 182.00 H (0.00-149.00) mg/dL Cholesterol 201.00 H (0.00-200.00) mg/dL 03/21/23 03/22/23 Range/Units 20:11 06:08 POC Glucose (mg/dL) 113 H 116 H (70-110) mg/dL Triglycerides (0.00-149.00) mg/dL Cholesterol (0.00-200.00) mg/dL
--- NOTE | 2023-03-22 14:05 | MR ---
EXAMINATION TYPE: MR cervical spine wo con DATE OF EXAM: 03/22/2023 INDICATION: Patient age: Female; 73 years old; Reason for study: neck pain with left arms numbness. Abnormal MRI B. Neck pain w/ left arm numbness, abnormal MRI Brain COMPARISON: CT neck 03/20/2023. MRI same day. TECHNIQUE: Multi planar, multi sequence imaging was performed utilizing: T1-weighted, T2-weighted, an d turbo inversion recovery imaging of the cervical spine. IV Contrast: None FINDINGS: Alignment: The cervical vertebral bodies have preserved heights. Alignment is within normal limits gi jose patient positioning. Bones: Multilevel disc degeneration changes with osteophyte formation disc space narrowing and disc d esiccation is present. There is fixation hardware is involving C4 and C5. Cord: Motion limited exam, there is compression of the spinal cord at the level of the foramen magnum C1/C2 area. Evaluation somewhat limited given patient motion. There is large pannus formation continuous improvement engineer ior to C1/C2. The spinal cord is unremarkable with regards to their signal intensity and morphology. Signal abnormality seen on same day MRI likely representing artifact on prior due to motion. No abnor mal signal definitively visualized on this MRI exam. Discs: Multilevel disc desiccation is present. The occipital C1, C1-C2: Large pannus posterior to the dens as seen on CT slightly asymmetric on the right which demonstrates severe spinal canal stenosis. There is no abnormal cord signal at this time. C2-C3: No significant disc pathology. The spinal canal is patent. Bilateral facet and uncovertebral joint arthropathy are present with moderate bilateral neural foraminal stenosis. C3-C4: No significant disc pathology. The spinal canal is patent. Bilateral facet and uncovertebral joint arthropathy are present with moderate to severe left and mild right neural foraminal stenosis. C4-C5: The disc is surgically absent. The spinal canal is patent. Bilateral facet and uncovertebral joint arthropathy are present with mild bilateral neural foraminal stenosis. C5-C6: A disc osteophyte complex is present with mild spinal canal stenosis. Bilateral facet and unc overtebral joint arthropathy are present with moderate to severe bilateral neural foraminal stenosis. C6-C7: A disc osteophyte complex is present with mild spinal canal stenosis. Bilateral facet and unc overtebral joint arthropathy are present with mild bilateral neural foraminal stenosis. C7-T1: No significant disc pathology. The spinal canal is patent. No neural foraminal stenosis. Other: None. IMPRESSION: Motion limited exam limited evaluation of the spinal cord and neural foraminal stenosis at multiple l evels. 1. 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 There is a large area of a abnormal signal posterior to the C1-C2 articulation which is compatible with large pannus formation as seen on same day CT from 03/20/2023. 2. While there appeared to be abnormal signal in the brainstem/spinal cord on MRI brain same day, th e STIR images and T2-weighted images do not definitively demonstrate abnormal signal within the spina l cord given limitations of this motion limited exam. 3. Degeneration changes with varying degrees of neural foraminal stenosis worse at C5-C6 with modera te to severe bilateral and large severe left C3-C4 neural foraminal stenosis.
--- NOTE | 2023-03-22 15:33 | P.CNOR ---
History of Present Illness - [facility] Consult date: 03/22/23 Requesting physician: Jayy Montejo Consult reason: other (cervical cord compression; left upp ext weakness) History of present illness: History of Presenting Illness Patient is a pleasant 73-year-old female who presented to the ER due to increasing numbness to the left upper extremity and new left facial numbness. Patient reports she was working out at the [employer] lifting weights when she felt increased numbness into her left upper extremity. Patient had thought this was due to her exercise. She then noticed numbness into the left side of her face. Patient reports she became nervous and brought herself into the ER. Patient does have a past medical history of hypertension, hyperlipidemia, and TIA. She does state she has an orthopedic history of a cervical surgery C4-C5 ACDF performed approximately 10 years ago in [place]. Our services were consulted for left upper extremity numbness and cervical stenosis. Computed tomography scan of the brain performed 03/22/2023 demonstrates spinal cord compression of the cervical medullary junction. There is abnormal signal seen in upper cervical spinal cord with greatest compression involving left margin of the spinal cord. There is a large area of abnormal signal posterior to the C1-C2 articulation may represent mass or large pannus formation. Abnormal signal within the spinal cord suggest spinal cord edema, myelitis or myelomalacia. MRI of the cervical spine performed on 03/22/2023 demonstrates the same results as a CT previously documented. While there appeared to be abnormal signal in the brainstem 4/cord and MRI brain the STIR images and T2-weighted images do not definitively demonstrate abnormal signal within the spinal cord given limitations of motion in this exam. Degeneration changes with varying degrees of neural foraminal stenosis worse at C5-C6 with moderate to severe bilateral enlarged severe left C3-C4 neural foraminal stenosis. Patient seen and examined this afternoon. Patient is currently sitting up in chair. VSS. Patient reports that she has chronic mild neck pain. She reports numbness in the left upper extremity that has been present for the past few months that had increased after her workout. Patient denies any weakness to bilateral upper extremities. She does report new facial numbness to the left cheek and temporal area that is causing some blurred vision in her left eye. She states her symptoms have remained the same since admission. Patient denies any headaches or nausea/vomiting. Patient states she is ambulatory with a walk er. Review of Systems Pertinent positives and negatives as discussed in HPI, a complete review of systems was performed and all other systems are negative. Physical Examination General: The patient is awake and alert, in no acute distress Skin: Skin is warm and dry with no obvious rashes or lesions. Eye: Pupils are equal, round and reactive to light, extra-ocular movements are intact; there is normal conjunctiva bilaterally. Neck: The neck is supple, there is no tenderness and ROM intact. Cardiovascular: There is a regular rate and rhythm. No murmur, rub or gallop is appreciated. Respiratory: Lungs are clear to auscultation, respirations are non-labored, breath sounds are equal. Gastrointestinal: Soft, non-distended, non-tender abdomen. Back: There is no tenderness to palpation in the midline, paralumbar, parathoracic or buttocks region. There is no obvious deformity. Musculoskeletal: ROM limited secondary to pain and stiffness. Shoulder abduction 5/5, elbow flexors 5/5, wrist dorsiflexors 5/5. finger abductor 5/5, potato seed cutter 5/5, hip flexor 5/5, knee flexor 5/5, ankle dorsiflexor 5/5, ankle plantarflexion 5/5 and extensor hallucis 5/5. Neurological: CN 2-12 intact. There are no obvious motor or sensory deficits. Movement and coordination equal and intact. Sensory exam to light touch intact C5-T1 and intact from L2-S1. Reflexes 2/4 in bilateral upper and lower extremities. Negative Hoffmans, babinski, and clonus signs. Psychiatric: Cooperative, appropriate mood & affect, normal judgment. 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 Please do not hesitate to contact us for any further questions. 2. Appreciate medical management 3. Pain management - Continue with current regimen and may benefit from trial of steroids 4. PT/OT - weightbearing as tolerated with a walker as needed. 7. Appreciate consult I reviewed and discussed this case with my attending Dr. Asencio, whom has reviewed this chart and films and is in agreement with assessment and plan of care as outlined above. I have personally seen and examined the patient, performed the documentation and the assessment and plan as written. Number of minutes spent on the visit: 20m. Past Medical History Past Medical History: CVA/TIA, Eye Disorder, GERD/Reflux, Hyperlipidemia, Hypertension Additional Past Medical History / Comment(s): TIA, gastric ulcer, constipation, chronic back pain, cervical and back DDD, R eye detached retina with surgery, whooping cough as a child History of Any Multi-Drug Resistant Organisms: None Reported Past Surgical History: Section, Hysterectomy, Tonsillectomy, Tubal Ligation Additional Past Surgical History / Comment(s): R eye surgery for detached retina, bilateral eye lasik surgery for vision, bilateral eye cataract removals/lens implants, EGD, colonoscopy. Past Anesthesia/Blood Transfusion Reactions: No Reported Reaction Past Psychological History: Depression Smoking Status: Never smoker Past Alcohol Use History: Occasional Past Drug Use History: None Reported - Past Family History Father History Unknown: Yes Additional Family Medical History / Comment(s): Father in a MVA at the age of 35 yrs. Mother Family Medical History: Coronary Artery Disease (CAD), Diabetes Mellitus, Myocardial Infarction (TN), Renal Disease Additional Family Medical History / Comment(s): Mother is 87yrs old. Pt does not recall at what age mother had a TN. Medications and Allergies Home Medications Medication Instructions Recorded Confirmed Type Lisinopril-Hctz 20-25 mg 1 tab PO HS 07/25/19 03/20/23 History [Zestoretic 20-25] Metoprolol Tartrate [Lopressor] 25 mg PO HS 07/25/19 03/20/23 History Pantoprazole [Protonix] 40 mg PO HS 07/25/19 03/20/23 History Aspirin EC [Ecotrin Low Dose] 81 mg PO DAILY 04/04/21 03/20/23 History Cholecalciferol [Vitamin D3 (25 25 mcg PO DAILY 04/04/21 03/20/23 History Mcg = 1000 Iu)] Meloxicam [Mobic] 7.5 mg PO BID 04/04/21 03/20/23 History Vitamin B Complex 1 cap PO DAILY 04/04/21 03/20/23 History HYDROcodone/APAP 5-325MG [Mize 5] 1 tab PO BID PRN 03/20/23 03/20/23 History metFORMIN HCL ER [Glucophage XR] 500 mg PO AC-SUPPER PRN 03/20/23 03/20/23 History Allergies Allergy/AdvReac Type Severity Reaction Status Date / Time ampicillin Allergy Rash/Hives Verified 03/20/23 07:57 nickel Allergy Rash/Hives Verified 03/20/23 07:57 Results - Labs Labs: Abnormal Lab Results - Last 24 Hours (Table) 03/21/23 03/21/23 03/21/23 Range/Units 06:46 16:18 20:11 POC Glucose (mg/dL) 138 H 113 H (70-110) mg/dL Triglycerides 182.00 H (0.00-149.00) mg/dL Cholesterol 201.00 H (0.00-200.00) mg/dL 03/22/23 Range/Units 06:08 POC Glucose (mg/dL) 116 H (70-110) mg/dL Triglycerides (0.00-149.00) mg/dL Cholesterol (0.00-200.00) mg/dL H & H 03/20/23 Range/Units 04:11 Hgb 14.2 (11.4-16.0) gm/dL Hct 41.9 (34.0-46.0) % Coagulation 03/20/23 Range/Units 04:11 INR 0.9 (<1.2) Result Diagrams: 03/20/23 04:11 03/20/23 04:11
--- NOTE | 2023-03-22 16:11 | P.PN ---
Subjective Progress Note Date: 03/22/23 The patient is seen at bedside and feels about the same as yesterday. Continue to feel numbness over the left side of lateral face and entire left upper. Denies any worsening of her condition. Objective - Vital Signs Vital signs: Vital Signs Temp 97.7 F 03/22/23 12:11 Pulse 74 03/22/23 12:11 Resp 18 03/22/23 12:11 BP 182/97 03/22/23 12:11 Pulse Ox 97 03/22/23 12:11 FiO2 Intake & Output 03/21/23 03/22/23 03/22/23 18:59 06:59 18:59 Intake Total 460 130 840 Balance 460 130 840 Weight 64.41 kg Intake: IV 10 Invasive Line 1 10 Oral 460 120 840 Other: Voiding Method Toilet Toilet # Voids 3 1 # Bowel Movements 1 - Exam GENERAL: The patient is lying in bed and is not in acute distress. NEUROLOGICAL: Higher mental function: The patient is awake, alert, oriented to self, place and time. Patient is following commands. No aphasia and no neglect. Cranial nerves: The pupils are round, equal and reactive to light and accommodation. Visual lewis are full to confrontation throughout. Extraocular movement is intact no nystagmus is noted. Facial sensation is normal to touch throughout. The facial strength is normal throughout. Hearing is moderately decreased l bilaterally to hand rub. Tongue is midline and moved [id number] without any difficulty. No dysarthria is noted. Shoulder shrug is normal bilaterally. Motor: The strength is 5 over 5 throughout. Normal tone and bulk. Cerebellum: Normal finger to nose bilaterally. Sensation: Sensation is normal to touch throughout. Reflexes (right/left): 2+ throughout. Plantars are mute bilaterally. Some of the workup during his hospital visit consisted of: Lipid panel is triglycerides 182, cholesterol is 201, LDLs 112 and HDL is 51. TSH is 4.990. Free T4 is 0.97. HEENT hemoglobin A1c is 6.7. CT head is reported as no acute abnormality. I personally reviewed the CT and I agree there is no acute subacute ischemia. There is no bleed. CTA head and neck was reported as no hemodynamically significant stenosis. EKG report is reviewed. 2D echo: It is reported as normal left ventricle size. Ejection fraction 55-60. Mildly increased septal wall thickness. No signal regional wall motion abnormality. Aortic valve sclerosis. No significant valvular dysfunction. MRI Brain is reported as there is spinal cord compression on the cervical medullary junction. There is abnormal signal seen in upper cervical spine cord with greatest compression involving the left margin of the spinal cord. There is a large area of abnormal signal posterior to the C1-C2 articulation may represent mass or large pannus formation. Abnormal signal within the spinal cord suggest spinal cord edema, myelitis or myelomalacia. Recommend MRI of the cervical spine. MRI C-spine is reported as motion limited exam limited evaluation of the spinal cord and neural foraminal stenosis at multiple levels. There is spinal cord compression of the cervical medullary junction at the level of the foramen magnum through C2 as seen on same day MRI Brain. There is a large area of abnormal signal posterior to the C1-C2 articulation which is compatible with large pannus formation as seen on same day CT from 03/20/2023. While there appear to be abnormal signal in the brainstem/spinal cord on MRI Brain same day, the STIR images and T2 weighted images do not definnitvely demonstrate abnormal signal within the spinal cord given limitation of this motion limited exam. Degeneration changes with varying degree of neural foraminal stenosis worse at C5-C6 with moderate to severe bilateral and large severe left C3-C4 neural foraminal stenosis. - Labs CBC & Chem 7: 03/20/23 04:11 03/20/23 04:11 Labs: Abnormal Lab Results - Last 24 Hours (Table) 03/21/23 03/21/23 03/22/23 Range/Units 16:18 20:11 06:08 POC Glucose (mg/dL) 138 H 113 H 116 H (70-110) mg/dL Assessment and Plan Assessment: This is a 73-year-old woman who presented because of left paresthesia over the left side of the face as well as left upper extremity at. Episode occurred on 03/19/2023 at around 9 AM that got worse at nighttime. On presentation the her NIH stroke scale was a 0. Paresthesia over left face as well as left upper extremity: is likely due to spinal cord compression of cervical/medullary junction at level of foramen magnum on MRI. History of TIA (with similar presentat as above) Chronic neck pain status post surgery in the past and that is a chronic area no worsening of the neck pain Diabetes mellitus Hypertension Plan: MRI C-spine is reported as motion limited exam limited evaluation of the spinal cord and neural foraminal stenosis at multiple levels. There is spinal cord compression of the cervical medullary junction at the level of the foramen magnum through C2 as seen on same day MRI Brain. There is a large area of abnormal signal posterior to the C1-C2 articulation which is compatible with large pannus formation as seen on same day CT from 03/20/2023. While there appear to be abnormal signal in the brainstem/spinal cord on MRI Brain same day, the STIR images and T2 weighted images do not definnitvely demonstrate abnormal signal within the spinal cord given limitation of this motion limited exam. Degeneration changes with varying degree of neural foraminal stenosis worse at C 5-C6 with moderate to severe bilateral and large severe left C3-C4 neural foraminal stenosis. I recommend patient to be transferred for neurosurgical evaluation. Orthopedic is consulted and they stated she needs neurosurgical evaluation. I started the patient on IV steroids, 125mg daily. Recommend glucose monitoring and GI prophylaxis. Patient is resumed on her home dose of aspirin 81 mg. I stopped Plavix since this is not stroke and is due to her compression of cervical region on cervical/medullary juInction. She is on Lipitor 40 mg daily at bedtime Continue neuro checks On cardiac monitoring PT OT and PLANNING LEAD are consulted We'll defer the rest of the medical management to primary team For DVT prophylaxis n subcu heparin 5000 units every 12 hours As stated earlier patient needs to be transferred for neurosurgical evaluation. The plan discussed with the patient and her was at bedside. Also discussed case with primary team. Time with Patient: Greater than 30
[2023-03-22 16:48] LABS: Glucose,Whole Blood 96 mg/dL (70-110)
[2023-03-22] MEDS: methylPREDNISolone SOD SUCCI 125 MG/2 ML VIAL IV SCH (17:02)
[2023-03-22 20:17] LABS: Glucose,Whole Blood 216 mg/dL (70-110)
[2023-03-22] MEDS: METOPROLOL TARTRATE 25 MG TAB PO SCH (21:27)
[2023-03-22] MEDS: PANTOPRAZOLE 40 MG TABLET PO SCH (21:27)
[2023-03-22] MEDS: ATORVASTATIN 40 MG TAB PO SCH (21:27)
[2023-03-23 05:53] LABS: Glucose,Whole Blood 218 mg/dL (70-110)
[2023-03-23] MEDS: INSULIN ASPART (NovoLOG) 100 UNIT/ML VIAL SQ SCH ×2 (06:22→12:12)
[2023-03-23] MEDS: methylPREDNISolone SOD SUCCI 125 MG/2 ML VIAL IV SCH (07:42)
[2023-03-23] MEDS: CHOLECALCIFEROL 25 MCG (1000 IU) TABLET PO SCH (07:42)
[2023-03-23] MEDS: ASPIRIN 81 MG PO SCH (07:42)
[2023-03-23] MEDS: LISINOPRIL-HCTZ 20-25 MG 1 EACH TAB PO SCH (07:43)
[2023-03-23] MEDS: HEPARIN SODIUM,PORCINE/PF 5,000 UNIT/0.5 ML SYRINGE SQ SCH (07:43)
[2023-03-23] MEDS: NON FORMULARY DRUG (Vitamin B Complex [Vitamin B Complex] 1 EACH Capsule) PO SCH (08:50)
[2023-03-23 09:03] VITALS: RESP 18
[2023-03-23 11:23] LABS: Glucose,Whole Blood 177 mg/dL (70-110)
--- NOTE | 2023-03-23 12:30 | P.PN ---
Subjective Progress Note Date: 03/23/23 patient is a 73-year-old lady with past medical history significant for hypertension, hyperlipidemia, diabetes mellitus in the ER because of left arm numbness. Patient stated that she was all right when while working at the [employer] she started noticing that her left arm was getting numb, numbness started first in her hand and then later progressed to her whole left arm and ascending into the left side of her face. Patient denied any slurred speech , no complain of any facial droop. Denied any weakness or numbness of the lower extremities. Patient did feel that her left arm was weaker than the right. Denied any headache. Denied any visual or hearing problems. Because of this left arm numbness, patient came to the ER Initial lab work done in the ER showed WBC 10.6, hemoglobin 14.2, platelet count 340, sodium 140, potassium 3.8, BUN 18, creatinine 0.62, AST 43, ALT 33 EKG done in the ER showed heart rate of 59 bpm, QRS 71, no acute ST segment changes seen, no T-wave inversions Chest x-ray done in the ER showed no acute disease CT brain done showed no acute abnormality CTA head and neck showed no significant stenosis Patient admitted to medicine service 03/21. Patient seen and examined. Stated numbness has improved, now involving only the face, complaining of some blurred vision 03/22. Patient seen and examined. MRI pending. 03/23. Patient seen and examined. States numbness in his left hand has improved. Discussed MRI brain and cervical spine findings and the recommendation for transfer, patient agreeable REVIEW OF SYSTEMS: CONSTITUTIONAL: No fever, no malaise,. CARDIOVASCULAR: No chest pain, no palpitations, no syncope. PULMONARY: No shortness of breath, no cough, GASTROINTESTINAL: No diarrhea, no nausea, no vomiting, no abdominal pain. NEUROLOGICAL: No headaches, no weakness, PHYSICAL EXAMINATION: GENERAL: The patient is alert and oriented x3, not in any acute distress. Well developed, well nourished. HEENT: Pupils are round and equally reacting to light. EOMI. No scleral icterus. No conjunctival pallor. Normocephalic, atraumatic. No pharyngeal erythema. No thyromegaly. CARDIOVASCULAR: S1 and S2 present. No murmurs, rubs, or gallops. PULMONARY: Chest is clear to auscultation, no wheezing or crackles. ABDOMEN: Soft, nontender, nondistended, normoactive bowel sounds. No palpable organomegaly. MUSCULOSKELETAL: No joint swelling or deformity. EXTREMITIES: No cyanosis, clubbing, or pedal edema. NEUROLOGICAL: Gross neurological examination did not reveal any focal deficits. SKIN: No rashes. Assessment and plan Cervical cord compression at the level of foramn magnum through C2 Hypertensive emergency Hyperlipidemia Diabetes mellitus Monitor vital signs Monitor CBC Monitor CMP HbA1c level was 6.7 Continue aspirin, Lipitor, started on Plavix MRI brain and cervical spine done showed There is spinal cord compression of the cervical medullary junction at the level of the foramen magnum through C2 as seen on same day MRI Brain. There is a large area of abnormal signal posterior to the C1-C2 articulation which is compatible with large pannus formation as seen on same day CT from 03/20/2023. Degeneration changes with varying degree of neural foraminal stenosis worse at C5-C6 with moderate to severe bilateral and large severe left C3-C4 neural foraminal stenosis. 2-D echo done showed normal LV size, normal LV systolic function, mildly increased septal wall thickness Results of CTA head and neck noted. Discussed with neurology, they recommended transfer r for neurosurgical evaluation Labs and medication were reviewed.. Continue same treatment. Continue with symptomatic treatment. Resume home medication. Monitor labs and vitals. DVT a nd GI prophylaxis. Further recommendations as per clinical course of the patient Dictation was produced using [employer] dictation software. please excuse any grammatical, word or spelling errors. Objective - Vital Signs Vital signs: Vital Signs Temp 97.5 F L 03/23/23 07:40 Pulse 80 03/23/23 07:40 Resp 18 03/23/23 07:40 BP 115/70 03/23/23 07:40 Pulse Ox 96 03/23/23 07:40 FiO2 Intake & Output 03/22/23 03/23/23 03/23/23 18:59 06:59 18:59 Intake Total 1080 120 950 Balance 1080 120 950 Weight 64.41 kg Intake: Oral 1080 120 950 Other: Voiding Method Toilet Toilet # Voids 1 - Labs CBC & Chem 7: 03/20/23 04:11 03/20/23 04:11 Labs: Abnormal Lab Results - Last 24 Hours (Table) 03/22/23 03/23/23 Range/Units 20:15 05:51 POC Glucose (mg/dL) 216 H 218 H (70-110) mg/dL
--- NOTE | 2023-03-23 14:34 | P.DS ---
Providers Date of admission: 03/20/23 05:29 Expected date of discharge: 03/23/23 Attending physician: Elliott Martini Consults: 03/20/23 05:30 Consult Physician Urgent Consulting Provider: Silvina Goodwin Consult Reason/Comments: Left arm and facial paresthesias Do you want consulting provider notified?: Yes 03/22/23 11:54 Consult Physician Urgent Consulting Provider: José Miguel Asencio Consult Reason/Comments: cervical cord compression; left upp ext weakness Do you want consulting provider notified?: Yes Primary care physician: Stefan Mcgrath [facility] Course: Discharge diagnoses; 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 Patient stated that she was all right when while working at the [employer] she started noticing that her left arm was getting numb, numbness started first in her hand and then later progressed to her whole left arm and ascending into the left side of her face. Patient denied any slurred speech , no complain of any facial droop. Denied any weakness or numbness of the lower extremities. Patient did feel that her left arm was weaker than the right. Denied any headache. Denied any visual or hearing problems. Because of this left arm numbness, patient came to the ER Initial lab work done in the ER showed WBC 10.6, hemoglobin 14.2, platelet count 340, sodium 140, potassium 3.8, BUN 18, creatinine 0.62, AST 43, ALT 33 EKG done in the ER showed heart rate of 59 bpm, QRS 71, no acute ST segment changes seen, no T-wave inversions Chest x-ray done in the ER showed no acute disease CT brain done showed no acute abnormality CTA head and neck showed no significant stenosis Patient admitted to medicine service 03/21. Patient seen and examined. Stated numbness has improved, now involving o nly the face, complaining of some blurred vision 03/22. Patient seen and examined. MRI pending. 03/23. Patient seen and examined. States numbness in his left hand has improved. MRI brain and cervical spine done showed There is spinal cord compression of the cervical medullary junction at the level of the foramen magnum through C2 as seen on same day MRI Brain. There is a large area of abnormal signal posterior to the C1-C2 articulation which is compatible with large pannus formation as seen on same day CT from 03/20/2023. Degeneration changes with varying degree of neural foraminal stenosis worse at C5-C6 with moderate to severe bilateral and large severe left C3-C4 neural foraminal stenosis. 2-D echo done showed normal LV size, normal LV systolic function, mildly increased septal wall thickness Discussed MRI brain and cervical spine findings and the recommendation for transfer, patient agreeable. Patient was accepted at [facility], being discharged there in stable condition PHYSICAL EXAMINATION: GENERAL: The patient is alert and oriented x3, not in any acute distress. Well developed, well nourished. HEENT: Pupils are round and equally reacting to light. EOMI. No scleral icterus. No conjunctival pallor. Normocephalic, atraumatic. No pharyngeal erythema. No thyromegaly. CARDIOVASCULAR: S1 and S2 present. No murmurs, rubs, or gallops. PULMONARY: Chest is clear to auscultation, no wheezing or crackles. ABDOMEN: Soft, nontender, nondistended, normoactive bowel sounds. No palpable organomegaly. MUSCULOSKELETAL: No joint swelling or deformity. EXTREMITIES: No cyanosis, clubbing, or pedal edema. NEUROLOGICAL: Gross neurological examination did not reveal any focal deficits. SKIN: No rashes. Dictation was produced using [employer] dictation software. please excuse any grammatical, word or spelling errors. Patient Condition at Discharge: Stable Plan - Discharge Summary Discharge Rx Participant: Yes New Discharge Prescriptions: New Atorvastatin [Lipitor] 40 mg PO HS #30 tab Continue Pantoprazole [Protonix] 40 mg PO HS Lisinopril-Hctz 20-25 mg [Zestoretic 20-25] 1 tab PO HS Metoprolol Tartrate [Lopressor] 25 mg PO HS Vitamin B Complex 1 cap PO DAILY Meloxicam [Mobic] 7.5 mg PO BID HYDROcodone/APAP 5-325MG [[place] 5-325] 1 tab PO BID PRN PRN Reason: Pain Cholecalciferol [Vitamin D3 (25 Mcg = 1000 Iu)] 25 mcg PO DAILY Aspirin EC [Ecotrin Low Dose] 81 mg PO DAILY metFORMIN HCL ER [Glucophage XR] 500 mg PO AC-SUPPER PRN PRN Reason: Blood Sugar - High Discharge Medication List Lisinopril-Hctz 20-25 mg [Zestoretic 20-25] 1 tab PO HS 07/25/19 [History] Metoprolol Tartrate [Lopressor] 25 mg PO HS 07/25/19 [History] Pantoprazole [Protonix] 40 mg PO HS 07/25/19 [History] Aspirin EC [Ecotrin Low Dose] 81 mg PO DAILY 04/04/21 [History] Cholecalciferol [Vitamin D3 (25 Mcg = 1000 Iu)] 25 mcg PO DAILY 04/04/21 [History] Meloxicam [Mobic] 7.5 mg PO BID 04/04/21 [History] Vitamin B Complex 1 cap PO DAILY 04/04/21 [History] HYDROcodone/APAP 5-325MG [[place] 5-325] 1 tab PO BID PRN 03/20/23 [History] metFORMIN HCL ER [Glucophage XR] 500 mg PO AC-SUPPER PRN 03/20/23 [History] Atorvastatin [Lipitor] 40 mg PO HS #30 tab 03/23/23 [Rx] Follow up Appointment(s)/Referral(s): Stefan Mcgrath DO [Primary Care Provider] - 1-2 days José Miguel Asencio DO [Doctor of Osteopathic Medicine] - 1 Week Luis Mihsra MD [REFERRING] - 1-2 Days (Neurosurgeon) Discharge Disposition: OTHER INSTITUTION NOT DEFINED
[2023-03-23 15:01] VITALS: TEMP 98.2
[2023-03-23 15:03] VITALS: BP 144/71; PULSE 74
--- NOTE | 2023-03-23 15:39 | P.PN ---
Subjective Progress Note Date: 03/23/23 I am following-up seeing the patient and she feels about the same and denies of any new neurological issues. She is leaning towards being transferred to [facility]. Objective - Vital Signs Vital signs: Vital Signs Temp 98.2 F 03/23/23 15:00 Pulse 74 03/23/23 15:00 Resp 18 03/23/23 15:00 BP 144/71 03/23/23 15:00 Pulse Ox 95 03/23/23 15:00 FiO2 Intake & Output 03/22/23 03/23/23 03/23/23 18:59 06:59 18:59 Intake Total 1188 347 2881 Balance 7523 185 0753 Weight 64.41 kg Intake: Oral 2187 472 0176 Other: Voiding Method Toilet Toilet # Voids 1 - Exam GENERAL: The patient is lying in bed and is not in acute distress. NEUROLOGICAL: Higher mental function: The patient is awake, alert, oriented to self, place and time. Patient is following commands. No aphasia and no neglect. Cranial nerves: The pupils are round, equal and reactive to light and accommodation. Visual lewis are full to confrontation throughout. Extraocular movement is intact no nystagmus is noted. Facial sensation is normal to touch throughout. The facial strength is normal throughout. Hearing is moderately decreased l bilaterally to hand rub. Tongue is midline and moved [id number] without any difficulty. No dysarthria is noted. Shoulder shrug is normal bilaterally. Motor: The strength is 5 over 5 throughout. Normal tone and bulk. Cerebellum: Normal finger to nose bilaterally. Sensation: Sensation is normal to touch throughout. Reflexes (right/left): 2+ throughout. Plantars are mute bilaterally. Some of the workup during his hospital visit consisted of: Lipid panel is triglycerides 182, cholesterol is 201, LDLs 112 and HDL is 51. TSH is 4.990. Free T4 is 0.97. HEENT hemoglobin A1c is 6.7. CT head is reported as no acute abnormality. I personally reviewed the CT and I agree there is no acute subacute ischemia. There is no bleed. CTA head and neck was reported as no hemodynamically significant stenosis. EKG report is reviewed. 2D echo: It is reported as normal left ventricle size. Ejection fraction 55-60. Mildly increased septal wall thickness. No signal regional wall motion abnormality. Aortic valve sclerosis. No significant valvular dysfunction. MRI Brain is reported as there is spinal cord compression on the cervical medullary junction. There is abnormal signal seen in upper cervical spine cord with greatest compression involving the left margin of the spinal cord. There is a large area of abnormal signal posterior to the C1-C2 articulation may represent mass or large pannus formation. Abnormal signal within the spinal cord suggest spinal cord edema, myelitis or myelomalacia. Recommend MRI of the cervical spine. MRI C-spine is reported as motion limited exam limited evaluation of the spinal cord and neural foraminal stenosis at multiple levels. There is spinal cord co mpression of the cervical medullary junction at the level of the foramen magnum through C2 as seen on same day MRI Brain. There is a large area of abnormal signal posterior to the C1-C2 articulation which is compatible with large pannus formation as seen on same day CT from 03/20/2023. While there appear to be abnormal signal in the brainstem/spinal cord on MRI Brain same day, the STIR images and T2 weighted images do not definnitvely demonstrate abnormal signal within the spinal cord given limitation of this motion limited exam. Degeneration changes with varying degree of neural foraminal stenosis worse at C5-C6 with moderate to severe bilateral and large severe left C3-C4 neural foraminal stenosis. - Labs CBC & Chem 7: 03/20/23 04:11 03/20/23 04:11 Labs: Abnormal Lab Results - Last 24 Hours (Table) 03/22/23 03/23/23 03/23/23 Range/Units 20:15 05:51 11:21 POC Glucose (mg/dL) 216 H 218 H 177 H (70-110) mg/dL Assessment and Plan Assessment: This is a 73-year-old woman who presented because of left paresthesia over the left side of the face as well as left upper extremity at. Episode occurred on 03/19/2023 at around 9 AM that got worse at nighttime. On presentation the her NIH stroke scale was a 0. Paresthesia over left face as well as left upper extremity: is likely due to spinal cord compression of cervical/medullary junction at level of foramen magnum on MRI. History of TIA (with similar presentat as above) Chronic neck pain status post surgery in the past and that is a chronic area no worsening of the neck pain Diabetes mellitus Hypertension Plan: MRI C-spine is reported as motion limited exam limited evaluation of the spinal cord and neural foraminal stenosis at multiple levels. There is spinal cord c ompression of the cervical medullary junction at the level of the foramen magnum through C2 as seen on same day MRI Brain. There is a large area of abnormal signal posterior to the C1-C2 articulation which is compatible with large pannus formation as seen on same day CT from 03/20/2023. While there appear to be abnormal signal in the brainstem/spinal cord on MRI Brain same day, the STIR images and T2 weighted images do not definnitvely demonstrate abnormal signal within the spinal cord given limitation of this motion limited exam. Degeneration changes with varying degree of neural foraminal stenosis worse at C5-C6 with moderate to severe bilateral and large severe left C3-C4 neural foraminal stenosis. I recommend patient to be transferred for neurosurgical evaluation. Orthopedic is consulted and they stated she needs neurosurgical evaluation. I started the patient on IV steroids, 125mg daily. Recommend glucose monitoring and GI prophylaxis. Patient is resumed on her home dose of aspirin 81 mg. I stopped Plavix since this is not stroke and is due to her compression of cervical region on cervical/medullary juInction. She is on Lipitor 40 mg daily at bedtime Continue neuro checks On cardiac monitoring PT OT and PRODUCTION CONTROL MANAGER are consulted We'll defer the rest of the medical management to primary team For DVT prophylaxis n subcu heparin 5000 units every 12 hours As stated earlier patient needs to be transferred for neurosurgical evaluation. The plan discussed with the patient, her and grand-daughter who are at bedside. Also discussed case with primary team. Time with Patient: Less than 30
[2023-03-23 16:13] LABS: Glucose,Whole Blood 253 mg/dL (70-110)
== END 2023-03-23 16:59 | disposition short-term general hospital (02) ==
LOC: EC 03:23 → 3SCARD 05:29
PROVIDERS: ADMIT Hospitalist; ATTEND Hospitalist
DX: G99.2 Myelopathy in diseases classified elsewhere (principal); M48.02 Spinal stenosis, cervical region; I16.1 Hypertensive emergency; E78.5 Hyperlipidemia, unspecified; E11.9 Type 2 diabetes mellitus without complications; I10 Essential (primary) hypertension; K21.9 Gastro-esophageal reflux disease without esophagitis; Z86.73 Personal history of transient ischemic attack (TIA), and cerebral infarction without residual deficits; G89.29 Other chronic pain; Z87.11 Personal history of peptic ulcer disease; M54.9 Dorsalgia, unspecified; K59.00 Constipation, unspecified; F32.A Depression, unspecified; Z90.710 Acquired absence of both cervix and uterus; Z79.82 Long term (current) use of aspirin; Z79.1 Long term (current) use of non-steroidal anti-inflammatories (NSAID); Z88.1 Allergy status to other antibiotic agents; Z91.048 Other nonmedicinal substance allergy status; Z79.899 Other long term (current) drug therapy; Z79.84 Long term (current) use of oral hypoglycemic drugs; Z83.3 Family history of diabetes mellitus; Z82.49 Family history of ischemic heart disease and other diseases of the circulatory system
CPT/HCPCS: 96376; 96372 ×3; 96374; 96375; 99285; 36415; 93005; 93306; 97161; 92523; 84439; 80061; 80053; 84443; 82607; 82550; 84484; 85025; 85610; 85730; 83036; 71046; 70496; 70450; 70498; 70551; 72141; G0378 ×4; J2060; J2930 ×2; Q9967; J1644 ×3

== ENCOUNTER 2023-04-12 22:04 | Emergency (ER) | payer MEDICARE ==
[2023-04-12 22:09] VITALS: TEMP 98.3
[2023-04-12] MEDS ORDERED: LORazepam 2 MG/ML INJ IV STA (22:27)
--- NOTE | 2023-04-12 22:28 | ED ---
General Adult HPI - General Chief complaint: Shortness of Breath Stated complaint: SOB Time Seen by Provider: 04/12/23 22:11 Source: patient, RN notes reviewed, old records reviewed Mode of arrival: wheelchair Limitations: no limitations - History of Present Illness Initial comments: 73-year-old female presents for evaluation of dyspnea which has been present for the past 3 days. No associated cough. No chest pain. No lower extremity pain or swelling. Patient is approximately 2 weeks postop cervical fusion. She denies fever. Denies history of heart or lung problems. She does admit that she is anxious and has been worrying quite a bit lately. - Related Data Home Medications Medication Instructions Recorded Confirmed Lisinopril-Hctz 20-25 mg 1 tab PO HS 07/25/19 03/20/23 [Zestoretic 20-25] Metoprolol Tartrate [Lopressor] 25 mg PO HS 07/25/19 03/20/23 Pantoprazole [Protonix] 40 mg PO HS 07/25/19 03/20/23 Aspirin EC [Ecotrin Low Dose] 81 mg PO DAILY 04/04/21 03/20/23 Cholecalciferol [Vitamin D3 (25 25 mcg PO DAILY 04/04/21 03/20/23 Mcg = 1000 Iu)] Meloxicam [Mobic] 7.5 mg PO BID 04/04/21 03/20/23 Vitamin B Complex 1 cap PO DAILY 04/04/21 03/20/23 HYDROcodone/APAP 5-325MG [Walnut 1 tab PO BID PRN 03/20/23 03/20/23 5-325] metFORMIN HCL ER [Glucophage XR] 500 mg PO AC-SUPPER PRN 03/20/23 03/20/23 Previous Rx's Medication Instructions Recorded Atorvastatin [Lipitor] 40 mg PO HS #30 tab 03/23/23 LORazepam [Ativan] 1 mg PO HS 3 Days #3 tab 04/13/23 Allergies Allergy/AdvReac Type Severity Reaction Status Date / Time ampicillin Allergy Rash/Hives Verified 04/12/23 22:08 nickel Allergy Rash/Hives Verified 04/12/23 22:08 Review of Systems ROS Statement: Those systems with pertinent positive or pertinent negative responses have been documented in the HPI. ROS Other: All systems not noted in ROS Statement are negative. Past Medical History Past Medical History: CVA/TIA, Eye Disorder, GERD/Reflux, Hyperlipidemia, Hypertension Additional Past Medical History / Comment(s): TIA, gastric ulcer, constipation, chronic back pain, cervical and back DDD, R eye detached retina with surgery, whooping cough as a child History of Any Multi-Drug Resistant Organisms: None Reported Past Surgical History: Section, Hysterectomy, Tonsillectomy, Tubal Ligation Additional Past Surgical History / Comment(s): R eye surgery for detached retina, bilateral eye lasik surgery for vision, bilateral eye cataract removals/lens implants, EGD, colonoscopy. Past Anesthesia/Blood Transfusion Reactions: No Reported Reaction Past Psychological History: Depression Smoking Status: Never smoker Past Alcohol Use History: Occasional Past Drug Use History: None Reported - Past Family History Father History Unknown: Yes Additional Family Medical History / Comment(s): Father in a MVA at the age of 35 yrs. Mother Family Medical History: Coronary Artery Disease (CAD), Diabetes Mellitus, Myocardial Infarction (IL), Renal Disease Additional Family Medical History / Comment(s): Mother is 87yrs old. Pt does not recall at what age mother had a IL. General Exam Limitations: no limitations General appearance: alert, anxious Head exam: Present: atraumatic, normocephalic Eye exam: Present: normal appearance, PERRL ENT exam: Present: normal exam Neck exam: Present: other (Posterior midline incision, no erythema, no fluctuance, appears well-healed) Respiratory exam: Present: normal lung sounds bilaterally. Absent: respiratory distress, wheezes, rales, rhonchi Cardiovascular Exam: Present: regular rate, normal rhythm GI/Abdominal exam: Present: soft. Absent: distended, tenderness Extremities exam: Present: normal inspection, normal capillary refill. Absent: pedal edema, calf tenderness Neurological exam: Present: alert, oriented X3, CN II-XII intact. Absent: motor sensory deficit Psychiatric exam: Present: anxious Skin exam: Present: warm, dry, intact Course Vital Signs 04/12/23 04/12/23 04/13/23 22:05 22:24 00:00 Temperature 98.3 F Pulse Rate 75 60 Respiratory 22 18 Rate Blood Pressure 176/76 147/78 O2 Sat by Pulse 99 100 99 Oximetry Medical Decision Making - Medical Decision Making Was pt. sent in by a medical professional or institution (, PA, FINANCIAL REPORTING ADVISOR, urgent care, hospital, or correction...) When possible be specific @ -No Did you speak to anyone other than the patient for history (EMS, parent, family, police, friend...)? What history was obtained from this source @ -No Did you review nursing and triage notes (agree or disagree)? Why? @ -I reviewed and agree with nursing and triage notes Were old charts reviewed (outside hosp., previous admission, EMS record, old EKG, old radiological studies, urgent care reports/EKG's, correction records)? Report findings @ -No old charts were reviewed Differential Diagnosis (chest pain, altered mental status, abdominal pain women, abdominal pain men, vaginal bleeding, weakness, fever, dyspnea, syncope, headache, dizziness, GI bleed, back pain, seizure, CVA, palpatations, mental health, musculoskeletal)? @ Differential Dyspnea: Coronary syndrome, arrhythmia, tamponade, asthma, COPD, pulmonary embolism, pneumonia, pneumothorax, pulmonary effusion, anaphylaxis, diabetic ketoacidosis, flailed chest, pulmonary contusion, diaphragmatic rupture, anemia, neuromuscular, this is not meant to be an all-inclusive list. EKG interpreted by me (3pts min.). @ -EKG: Sinus rhythm rate of 69, TN interval 176, QRS duration 83, QTC [address] segment elevation. X-rays interpreted by me (1pt min.). @ -[Assessed x-ray negative for focal pneumonia, no acute findings CT interpreted by me (1pt min.). @ -CT angiography negative for PE or acute cardiopulmonary findings U/S interpreted by me (1pt. min.). @ -None done What testing was considered but not performed or refused? (CT, X-rays, U/S, labs)? Why? @ -None What meds were considered but not given or refused? Why? @ -None Did you discuss the management of the patient with other professionals (professionals i.e. , PA, FINANCIAL REPORTING ADVISOR, lab, RT, psych nurse, foster care social worker, burn out scarfing operator, teacher, chief green officer, counter caser)? Give summary @ -No Was smoking cessation discussed for >3mins.? @ -No Was critical care preformed (if so, how long)? @ -No Were there social determinants of health that impacted care today? How? (Homelessness, low income, unemployed, alcoholism, drug addiction, transportation, low edu. Level, literacy, decrease access to med. care, detention, rehab)? @ -No Was there de-escalation of care discussed even if they declined (Discuss DNR or withdrawal of care, Hospice)? DNR status @ -No What co-morbidities impacted this encounter? (DM, HTN, Smoking, COPD, CAD, Cancer, CVA, ARF, Chemo, Hep., AIDS, mental health diagnosis, sleep apnea, morbid obesity)? @ -Cervical stenosis Was patient admitted / discharged? Hospital course, mention meds given and route, prescriptions, significant lab abnormalities, going to OR and other pertinent info. @73-year-old female with 3 days of dyspnea and anxiety. Workup is performed, she has a normal white blood cell count, mild anemia likely postoperative. Normal troponin and BNP. She did have a positive d-dimer at 3 and this was assessed with CT angiography to rule out pulmonary embolism. This was negative for PE. The d-dimer is also likely postsurgical in nature. Her vital signs remained completely stable and oxygenation is normal. She is treated with 1 dose of Ativan in the emergency department with significant improvement. She is stable for discharge at this time with close return parameters. Undiagnosed new problem with uncertain prognosis? @ -No Drug Therapy requiring intensive monitoring for toxicity (Heparin, Nitro, Insulin, Cardizem)? @ -No Were any procedures done? @ -No Diagnosis/symptom? @ -[Dyspnea Acute, or Chronic, or Acute on Chronic? @Acute Uncomplicated (without systemic symptoms) or Complicated (systemic symptoms)? @ -default Side effects of treatment? @ -No Exacerbation, Progression, or Severe Exacerbation? @ -No Poses a threat to life or bodily function? How? (Chest pain, USA, IL, pneumonia, PE, COPD, DKA, ARF, appy, cholecystitis, CVA, Diverticulitis, Homicidal, Suicidal, threat to staff... and all critical care pts) @ -[Low risk at this time - Lab Data Result diagrams: 04/12/23 22:36 04/12/23 22:36 Lab Results 04/12/23 04/12/23 04/12/23 Range/Units 22:36 22:36 22:36 WBC 8.8 (3.8-10.6) k/uL RBC 3.66 L (3.80-5.40) m/uL Hgb 10.7 L D (11.4-16.0) gm/dL Hct 31.4 L (34.0-46.0) % MCV 86.0 (80.0-100.0) fL MCH 29.3 (25.0-35.0) pg MCHC 34.0 (31.0-37.0) g/dL RDW 13.4 (11.5-15.5) % Plt Count 560 H (150-450) k/uL MPV 7.1 Neutrophils % 50 % Lymphocytes % 37 % Monocytes % 6 % Eosinophils % 4 % Basophils % 1 % Neutrophils # 4.4 (1.3-7.7) k/uL Lymphocytes # 3.2 (1.0-4.8) k/uL Monocytes # 0.6 (0-1.0) k/uL Eosinophils # 0.4 (0-0.7) k/uL Basophils # 0.1 (0-0.2) k/uL PT 9.4 (9.0-12.0) sec INR 0.9 (<1.2) APTT 17.7 L (22.0-30.0) sec D-Dimer 3.07 H (<0.60) mg/L FEU Sodium 135 L (137-145) mmol/L Potassium 4.4 (3.5-5.1) mmol/L Chloride 104 (98-107) mmol/L Carbon Dioxide 20 L (22-30) mmol/L Anion Gap 11 mmol/L BUN 23 H (7-17) mg/dL Creatinine 0.51 L (0.52-1.04) mg/dL Est GFR (CKD-EPI)AfAm >90 (>60 ml/min/1.73 sqM) Est GFR (CKD-EPI)NonAf >90 (>60 ml/min/1.73 sqM) Glucose 173 H (74-99) mg/dL Plasma Lactic Acid Manuelito (0.7-2.0) mmol/L Calcium 9.6 (8.4-10.2) mg/dL Magnesium 1.9 (1.6-2.3) mg/dL Total Bilirubin 0.6 (0.2-1.3) mg/dL AST 41 H (14-36) U/L ALT 24 (4-34) U/L Alkaline Phosphatase 117 (38-126) U/L Troponin I (0.000-0.034) ng/mL NT-Pro-B Natriuret Pep 25 pg/mL Total Protein 7.2 (6.3-8.2) g/dL Albumin 4.0 (3.5-5.0) g/dL 04/12/23 04/12/23 Range/Units 22:36 22:36 WBC (3.8-10.6) k/uL RBC (3.80-5.40) m/uL Hgb (11.4-16.0) gm/dL Hct (34.0-46.0) % MCV (80.0-100.0) fL MCH (25.0-35.0) pg MCHC (31.0-37.0) g/dL RDW (11.5-15.5) % Plt Count (150-450) k/uL MPV Neutrophils % % Lymphocytes % % Monocytes % % Eosinophils % % Basophils % % Neutrophils # (1.3-7.7) k/uL Lymphocytes # (1.0-4.8) k/uL Monocytes # (0-1.0) k/uL Eosinophils # (0-0.7) k/uL Basophils # (0-0.2) k/uL PT (9.0-12.0) sec INR (<1.2) APTT (22.0-30.0) sec D-Dimer (<0.60) mg/L FEU Sodium (137-145) mmol/L Potassium (3.5-5.1) mmol/L Chloride (98-107) mmol/L Carbon Dioxide (22-30) mmol/L Anion Gap mmol/L BUN (7-17) mg/dL Creatinine (0.52-1.04) mg/dL Est GFR (CKD-EPI)AfAm (>60 ml/min/1.73 sqM) Est GFR (CKD-EPI)NonAf (>60 ml/min/1.73 sqM) Glucose (74-99) mg/dL Plasma Lactic Acid Manuelito 1.7 (0.7-2.0) mmol/L Calcium (8.4-10.2) mg/dL Magnesium (1.6-2.3) mg/dL Total Bilirubin (0.2-1.3) mg/dL AST (14-36) U/L ALT (4-34) U/L Alkaline Phosphatase (38-126) U/L Troponin I <0.012 (0.000-0.034) ng/mL NT-Pro-B Natriuret Pep pg/mL Total Protein (6.3-8.2) g/dL Albumin (3.5-5.0) g/dL Disposition Clinical Impression: Dyspnea Disposition: HOME SELF-CARE Condition: Fair Instructions (If sedation given, give patient instructions): Dyspnea (ED) Prescriptions: LORazepam [Ativan] 1 mg PO HS 3 Days #3 tab Is patient prescribed a controlled substance at d/c from ED?: No Referrals: Stefan Mcgrath DO [Primary Care Provider] - 1-2 days Time of Disposition: 01:06
[2023-04-12 22:48] LABS: Basophils # (A) 0.1 k/uL (0-0.2); Basophils % (A) 1 %; Eosinophils # (A) 0.4 k/uL (0-0.7); Eosinophils % (A) 4 %; HCT 31.4 % (34.0-46.0); Lymphocytes # (A) 3.2 k/uL (1.0-4.8); Lymphocytes % (A) 37 %; MCH 29.3 pg (25.0-35.0); Mean Platelet Volume 7.1; Monocytes # (A) 0.6 k/uL (0-1.0); Monocytes % (A) 6 %; Neutrophils # (A) 4.4 k/uL (1.3-7.7); Neutrophils % (A) 50 %; Platelet Count 560 k/uL (150-450); RBC 3.66 m/uL (3.80-5.40); RDW 13.4 % (11.5-15.5); WBC 8.8 k/uL (3.8-10.6)
[2023-04-12 22:50] LABS: HGB 10.7 gm/dL (11.4-16.0)
[2023-04-12 23:06] LABS: ALT 24 U/L (4-34); African American GFR (CKD) >90 (>60 ml/min/1.73 sqM); Anion Gap 11 mmol/L; Blood Urea Nitrogen 23 mg/dL (7-17); Calcium 9.6 mg/dL (8.4-10.2); Carbon Dioxide 20 mmol/L (22-30); Chloride 104 mmol/L (98-107); Glucose 173 mg/dL (74-99); Non-African American GFR(CKD) >90 (>60 ml/min/1.73 sqM); Sodium 135 mmol/L (137-145); Total Bilirubin 0.6 mg/dL (0.2-1.3); Total Protein 7.2 g/dL (6.3-8.2)
--- NOTE | 2023-04-12 23:07 | XR ---
EXAM: XR Chest, 2 Views CLINICAL HISTORY: ITS.REASON XR Reason: difficulty breathing TECHNIQUE: Frontal and lateral views of the chest. COMPARISON: No relevant prior studies available. FINDINGS: Lungs: Unremarkable. No consolidation. Pleural space: Unremarkable. No pneumothorax. Heart: Unremarkable. No cardiomegaly. Mediastinum: Unremarkable. Bones/joints: Unremarkable. IMPRESSION: Normal chest x-rays.
[2023-04-12 23:13] LABS: AST 41 U/L (14-36); Alkaline Phosphatase 117 U/L (38-126); Magnesium 1.9 mg/dL (1.6-2.3); Potassium 4.4 mmol/L (3.5-5.1)
[2023-04-12 23:14] LABS: NT-Pro-B-Type Natriuretic Pept 25 pg/mL
[2023-04-12 23:59] LABS: INR 0.9 (<1.2); Prothrombin Time 9.4 sec (9.0-12.0)
[2023-04-13 00:01] VITALS: BP 147/78; PULSE 60; RESP 18
[2023-04-13 00:05] LABS: Partial Thromboplastin Time 17.7 sec (22.0-30.0)
--- NOTE | 2023-04-13 00:41 | CT ---
EXAM: CT Angiography Chest With Intravenous Contrast CLINICAL HISTORY: ITS.REASON CT Reason: SOB/Pos dimer TECHNIQUE: Axial computed tomographic angiography images of the chest with intravenous contrast. CTDI is 24.1 mGy and DLP is 580.6 mGy-cm. This CT exam was performed using one or more of the following dose reduction techniques: automated exposure control, adjustment of the mA and/or kV according to patient size, and/or use of iterative reconstruction technique. MIP reconstructed images were created and reviewed. COMPARISON: No relevant prior studies available. FINDINGS: Pulmonary arteries: Unremarkable. No acute pulmonary embolism. Aorta: Atherosclerotic changes of the aorta. No thoracic aortic aneurysm. Lungs: Unremarkable. No mass. No consolidation. Pleural space: Unremarkable. No focal infiltrate, pleural effusion, or pneumothorax. Heart: Mildly prominent heart size. No significant pericardial effusion. No evidence of RV dysfunction. Bones/joints: Degenerative changes of the spine. No acute fracture. No dislocation. Soft tissues: Unremarkable. Lymph nodes: Unremarkable. No enlarged lymph nodes. Liver: Hepatic steatosis. IMPRESSION: 1. No focal infiltrate, pleural effusion, or pneumothorax. 2. No acute pulmonary embolism.
== END 2023-04-13 01:17 | disposition home or self-care (01) ==
LOC: EC 22:04
DX: R06.00 Dyspnea, unspecified (principal); I10 Essential (primary) hypertension; K21.9 Gastro-esophageal reflux disease without esophagitis; Z79.82 Long term (current) use of aspirin; Z79.899 Other long term (current) drug therapy; Z88.0 Allergy status to penicillin; Z91.048 Other nonmedicinal substance allergy status; Z86.73 Personal history of transient ischemic attack (TIA), and cerebral infarction without residual deficits
CPT/HCPCS: 36415; 93005; 85379; 83880; 80053; 83605; 83735; 84484; 85025; 85610; 85730; 71046; 71275; 99285; 96374; J2060

== ENCOUNTER 2023-05-15 11:10 | Emergency (ER) | payer OTHER, MEDICARE ==
[2023-05-15] MEDS ORDERED: ONDANSETRON 4 MG/2 ML VIAL IVP STA (11:23)
[2023-05-15] MEDS ORDERED: SODIUM CHLORIDE 0.9% 1,000 ML IV STA (11:23)
[2023-05-15 11:25] VITALS: RESP 18
[2023-05-15] MEDS ORDERED: MORPHINE SULFATE 4 MG/ML SYRINGE IVP STA ×2 (11:25→13:42)
[2023-05-15 11:27] VITALS: TEMP 98
[2023-05-15 12:01] LABS: ALT 26 U/L (4-34); African American GFR (CKD) >90 (>60 ml/min/1.73 sqM); Albumin 4.8 g/dL (3.5-5.0); Alcohol <10 mg/dL; Anion Gap 13 mmol/L; Blood Urea Nitrogen 19 mg/dL (7-17); Calcium 10.5 mg/dL (8.4-10.2); Carbon Dioxide 22 mmol/L (22-30); Chloride 106 mmol/L (98-107); Glucose 129 mg/dL (74-99); Non-African American GFR(CKD) >90 (>60 ml/min/1.73 sqM); Sodium 141 mmol/L (137-145); Total Bilirubin 0.6 mg/dL (0.2-1.3); Total Protein 8.4 g/dL (6.3-8.2)
[2023-05-15 12:02] LABS: Potassium 4.4 mmol/L (3.5-5.1)
[2023-05-15 12:03] LABS: AST 47 U/L (14-36); Alkaline Phosphatase 126 U/L (38-126)
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
--- NOTE | 2023-05-15 12:29 | XR ---
EXAMINATION TYPE: XR shoulder complete RT DATE OF EXAM: 05/15/2023 COMPARISON: NONE HISTORY: Pain TECHNIQUE: Shoulder examined in 3 projections. FINDINGS: The humeral head articulates with the glenoid. The acromio-clavicular junction is hypertrophied. No acute fractures or dislocations are evident. A follow up study can be performed 7-10 days from acute trauma for continued pain. MRI can be perfor med if soft tissue evaluation would be of benefit. IMPRESSION: 1. No acute osseous shoulder abnormality.
[2023-05-15 12:36] LABS: Basophils % (A) 0 %; Eosinophils # (A) 0.4 k/uL (0-0.7); Eosinophils % (A) 3 %; HCT 37.1 % (34.0-46.0); Lymphocytes # (A) 2.3 k/uL (1.0-4.8); Lymphocytes % (A) 18 %; MCH 27.9 pg (25.0-35.0); MCHC 32.4 g/dL (31.0-37.0); MCV 86.3 fL (80.0-100.0); Mean Platelet Volume 7.5; Monocytes # (A) 0.6 k/uL (0-1.0); Monocytes % (A) 5 %; Neutrophils # (A) 9.3 k/uL (1.3-7.7); Neutrophils % (A) 73 %; Platelet Count 372 k/uL (150-450); RDW 13.6 % (11.5-15.5); WBC 12.8 k/uL (3.8-10.6)
[2023-05-15] MEDS ORDERED: hydrALAZINE HCL 20 MG/ML 1 ML VIAL IVP STA (12:48)
[2023-05-15 12:52] LABS: INR 0.9 (<1.2); Partial Thromboplastin Time 22.1 sec (22.0-30.0); Prothrombin Time 9.6 sec (9.0-12.0)
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
[2023-05-15 13:46] LABS: Amphetamine Screen,Urine Not Detected (NotDetected); Barbiturate Screen,Urine Not Detected (NotDetected); Benzodiazepines Screen,Urine Not Detected (NotDetected); Cocaine Screen,Urine Not Detected (NotDetected); Methadone Screen, Urine Not Detected (NotDetected); Opiate Screen,Urine Detected (NotDetected); Oxycodone Screen, Urine Not Detected (NotDetected); Phencyclidine Screen,Urine Not Detected (NotDetected); Tricyclic Antidepressant,Urine Not Detected (NotDetected); Urn Cannabinoid Scrn Not Detected (NotDetected)
[2023-05-15 14:17] VITALS: BP 120/66; PULSE 103
== END 2023-05-15 14:31 | disposition home or self-care (01) ==
LOC: EC 11:10
DX: S29.011A Strain of muscle and tendon of front wall of thorax, initial encounter (principal); E78.5 Hyperlipidemia, unspecified; I10 Essential (primary) hypertension; K21.9 Gastro-esophageal reflux disease without esophagitis; E11.36 Type 2 diabetes mellitus with diabetic cataract; M16.0 Bilateral primary osteoarthritis of hip; Z86.73 Personal history of transient ischemic attack (TIA), and cerebral infarction without residual deficits; F41.9 Anxiety disorder, unspecified; F32.A Depression, unspecified; Z88.8 Allergy status to other drugs, medicaments and biological substances; Z79.82 Long term (current) use of aspirin; Z79.84 Long term (current) use of oral hypoglycemic drugs; Z79.899 Other long term (current) drug therapy; V49.50XA Passenger injured in collision with unspecified motor vehicles in traffic accident, initial encounter
CPT/HCPCS: 36415; 93005; 86900; 86901; 80053; 84484; 85025; 85610; 85730; 86850; 80306; 80320; 72170; 73030; 71046; 72125; 70450; 99285; 96374; 96376; 96375 ×2; 96361; J2270; J0360; J2405

== ENCOUNTER → 2023-11-09 | Outpatient (CLI) | payer MEDICARE ==
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
== END | disposition home or self-care (01) ==
LOC: RADFLMAIN 11:17
PROVIDERS: ATTEND Family Medicine
DX: R13.10 Dysphagia, unspecified (principal); Z98.1 Arthrodesis status
CPT/HCPCS: 74230

== ENCOUNTER → 2024-02-27 | Outpatient (CLI) | payer MEDICARE ==
--- NOTE | 2024-02-28 08:24 | MM ---
Reason for Exam: Screening (asymptomatic). Last screening mammogram was performed 12 month(s) ago. Patient History: Menarche at age 13. First Full-Term at age 19. Left ovary removed at age 49. Right ovary removed at age 49. Hysterectomy at age 49. Postmenopausal. Estrogen, from age 67 until age 70. 01/16/2012, Bilateral Reduction. Paternal aunt had breast cancer at or over age 50. Risk Values: Dorothy 5 year model risk: 1.3%. NCI Lifetime model risk: 3.0%. Prior Study Comparison: 02/15/2021 Bilateral Screening Mammogram, [facility]. 02/16/2022 Bilateral MG 3D screening mammo w/cad, [facility]. 02/19/2023 Bilateral MG 3D screening mammo w/cad, [facility]. Tissue Density: There are scattered areas of fibroglandular density. Findings: Analyzed By CAD. There is no suspicious group of microcalcifications or new suspicious mass in either breast. Overall Assessment: Benign, BI-RAD 2 Management: Screening Mammogram of both breasts in 1 year. . Patient should continue monthly self-breast exams. A clinical breast exam by your physician is recommended on an annual basis. This exam should not preclude additional follow-up of suspicious palpable abnormalities. Note on Dorothy scores and lifetime risk: 1. A Dorothy score greater than 3% is considered moderate risk. If this is the case, consider specialist referral to assess eligibility for a risk reducing agent. 2. If overall lifetime risk for the development of breast cancer is 20% or higher, the patient may qualify for future screening with alternating mammogram and breast MRI. Electronically signed and approved by: Rob Leavitt M.D. Radiologis
== END | disposition home or self-care (01) ==
LOC: RADMAMWWP 13:27
PROVIDERS: ATTEND Family Medicine
DX: Z12.31 Encounter for screening mammogram for malignant neoplasm of breast (principal); Z78.0 Asymptomatic menopausal state; Z80.3 Family history of malignant neoplasm of breast
CPT/HCPCS: 77063; 77067

== ENCOUNTER → 2024-07-23 | Outpatient (CLI) | payer MEDICARE ==
--- NOTE | 2024-07-23 11:08 | XR ---
EXAMINATION TYPE: XR chest 2V DATE OF EXAM: 07/23/2024 10:57 AM COMPARISON: Chest radiographs from 05/15/2023 TECHNIQUE: XR chest 2V Frontal and lateral views of the chest. CLINICAL INDICATION:Female, 74 years old with history of M54.16 RADICULOPATHY, LUMBAR REGION; FINDINGS: Lungs/Pleura: There is no evidence of pleural effusion, focal consolidation, or pneumothorax. Pulmonary vascularity: Unremarkable. Heart/mediastinum: Cardiomediastinal silhouette is stable. Atherosclerotic calcifications are seen i n the aorta. Musculoskeletal: Multiple level degenerative disc disease changes seen throughout the spine. Partial visualization of cervical fusion hardware. IMPRESSION: No acute cardiopulmonary disease/process. [facility], , 07/23/2024 11:05 AM
== END | disposition home or self-care (01) ==
LOC: RADXRMAIN 10:38
PROVIDERS: ATTEND Neurological Surgery
DX: I70.0 Atherosclerosis of aorta (principal); M51.16 Intervertebral disc disorders with radiculopathy, lumbar region
CPT/HCPCS: 71046

== ENCOUNTER → 2024-07-25 | Outpatient (CLI) | payer MEDICARE ==
[2024-07-25 12:43] LABS: INR 0.9 (<1.2); Partial Thromboplastin Time 23.4 sec (22.0-30.0); Prothrombin Time 10.1 sec (10.0-12.5)
[2024-07-25 15:29] LABS: Basophils # (A) 0.07 X 10*3/uL (0.00-0.10); Basophils % (A) 0.8 %; Eosinophils # (A) 0.31 X 10*3/uL (0.04-0.35); Eosinophils % (A) 3.4 %; HCT 39.1 % (37.2-46.3); HGB 12.9 g/dL (12.0-15.0); Lymphocytes % (A) 32.9 %; MCH 27.9 pg (27.0-32.0); MCV 84.4 FL (80.0-97.0); Monocytes # (A) 0.69 X 10*3/uL (0.20-1.00); Monocytes % (A) 7.6 %; NRBC Per 100 WBC 0 X 10*3/uL (0.00-0.01); Neutrophils # (A) 5.05 X 10*3/uL (1.80-7.70); Neutrophils % (A) 55.2 %; Platelet Count 373 X 10*3/uL (140-440); RBC 4.63 X 10*6/uL (4.10-5.20); RDW 13.5 % (11.5-14.5); WBC 9.13 X 10*3/uL (4.50-10.00)
[2024-07-25 15:43] LABS: Appearance,Urine Clear (Clear); Bilirubin,Urine Negative (Negative); Blood,Urine Negative (Negative); Color,Urine Light Yellow; Glucose,Urine (UA) Negative (Negative); Ketones,Urine Negative (Negative); Leukocyte Esterase,Urine Large (Negative); Mucus,Urine Rare /hpf; Nitrite,Urine Negative (Negative); Protein,Urine Negative (Negative); RBC,Urine 1 /hpf (0-5); Specific Gravity,Urine 1.019 (1.001-1.035); Squamous Epithelial Cell,Urine 2 /hpf (0-4); Urobilinogen,Urine <2.0 mg/dL (<2.0); WBC,Urine 20 /hpf (0-5)
[2024-07-25 16:09] LABS: BUN/Creat Ratio 23.38 Ratio (12.00-20.00); Blood Urea Nitrogen 18.7 mg/dL (9.0-27.0); Chloride 102 mmol/L (96-109); Glucose 118 mg/dL (70-110); Potassium 4.2 mmol/L (3.5-5.5); Sodium 141 mmol/L (135-145)
[2024-07-25 16:10] LABS: ALT 17 U/L (8-44); AST 23 U/L (13-35); Albumin 4.4 g/dL (3.8-4.9); Albumin/Globulin Ratio 1.83 Ratio (1.60-3.17); Alkaline Phosphatase 115 U/L (41-126); Calcium 10.2 mg/dL (8.7-10.3); Carbon Dioxide 26.1 mmol/L (21.6-31.8); Globulin 2.4 g/dL (1.6-3.3); Total Bilirubin 0.2 mg/dL (0.3-1.2); Total Protein 6.8 g/dL (6.2-8.2)
== END | disposition home or self-care (01) ==
LOC: LABWHC1 11:38
PROVIDERS: ATTEND Neurological Surgery
DX: M54.16 Radiculopathy, lumbar region (principal)
CPT/HCPCS: 36415; 80053; 81001; 83036; 85025; 85610; 85730; 87070; 87086

== ENCOUNTER 2024-11-23 22:41 | Inpatient (IN) | payer MEDICARE ==
--- NOTE | 2024-11-23 23:01 | ED ---
General Adult HPI - General Chief complaint: Chest Pain Stated complaint: Chest pain Time Seen by Provider: 11/23/24 22:41 Source: patient Mode of arrival: ambulatory Limitations: no limitations - History of Present Illness Initial comments: Dictation was produced using [employer] dictation software. please excuse any grammatical, word or spelling errors. Chief Complaint: 74-year-old female presents to the ER for chest pain History of Present Illness: Patient is a 74-year-old female history of diabetes and family history. She states that today she has been having intermittent symptoms of chest pain located to the epigastrium. States it radiates to the back associated with some tingling in her jaw along with episode of nausea. Patient states that at the time of my interview her pain had completely gone away. Patient denies any cardiac history. Several years ago she had a stress test that was found to be negative. The ROS documented in this emergency department record has been reviewed and confirmed by me. Those systems with pertinent positive or negative responses have been documented in the HPI. All other systems are other negative and/or noncontributory. - Related Data Home Medications Medication Instructions Recorded Confirmed Lisinopril-Hctz 20-25 mg 1 tab PO HS 07/25/19 03/20/23 [Zestoretic 20-25] Metoprolol Tartrate [Lopressor] 25 mg PO HS 07/25/19 03/20/23 Pantoprazole [Protonix] 40 mg PO HS 07/25/19 03/20/23 Aspirin EC [Ecotrin Low Dose] 81 mg PO DAILY 04/04/21 03/20/23 Cholecalciferol [Vitamin D3 (25 25 mcg PO DAILY 04/04/21 03/20/23 Mcg = 1000 Iu)] Meloxicam [Mobic] 7.5 mg PO BID 04/04/21 03/20/23 Vitamin B Complex 1 cap PO DAILY 04/04/21 03/20/23 HYDROcodone/APAP 5-325MG [[place] 1 tab PO BID PRN 03/20/23 03/20/23 5-325] metFORMIN HCL ER [Glucophage XR] 500 mg PO AC-SUPPER PRN 03/20/23 03/20/23 Previous Rx's Medication Instructions Recorded Atorvastatin [Lipitor] 40 mg PO HS #30 tab 03/23/23 LORazepam [Ativan] 1 mg PO HS 3 Days #3 tab 04/13/23 Allergies Allergy/AdvReac Type Severity Reaction Status Date / Time ampicillin Allergy Rash/Hives Verified 11/23/24 22:42 nickel Allergy Rash/Hives Verified 11/23/24 22:42 Review of Systems ROS Statement: Those systems with pertinent positive or pertinent negative responses have been documented in the HPI. ROS Other: All systems not noted in ROS Statement are negative. Past Medical History Past Medical History: CVA/TIA, Eye Disorder, GERD/Reflux, Hyperlipidemia, Hypertension Additional Past Medical History / Comment(s): TIA, gastric ulcer, constipation, chronic back pain, cervical and back DDD, R eye detached retina with surgery, whooping cough as a child History of Any Multi-Drug Resistant Organisms: None Reported Past Surgical History: Section, Hysterectomy, Tonsillectomy, Tubal Ligation Additional Past Surgical History / Comment(s): R eye surgery for detached retina, bilateral eye lasik surgery for vision, bilateral eye cataract removals/lens implants, EGD, colonoscope, C2 plate placed, Past Anesthesia/Blood Transfusion Reactions: No Reported Reaction Past Psychological History: Anxiety, Depression Smoking Status: Never smoker Past Alcohol Use History: Occasional Past Drug Use History: None Reported - Past Family History Father History Unknown: Yes Additional Family Medical History / Comment(s): Father in a MVA at the age of 35 yrs. Mother Family Medical History: Coronary Artery Disease (CAD), Diabetes Mellitus, Myoca rdial Infarction (PR), Renal Disease Additional Family Medical History / Comment(s): Mother is 87yrs old. Pt does not recall at what age mother had a PR. General Exam - General Exam Comments Initial Comments: PHYSICAL EXAM: General Impression: Alert and oriented x3, not in acute distress HEENT: Normocephalic atraumatic, extra-ocular movements intact, pupils equal and reactive to light bilaterally, mucous membranes moist. Cardiovascular: Heart regular rate and rhythm Chest: Able to complete full sentences, no retractions, no tachypnea Abdomen: abdomen soft, non-tender, non-distended, no organomegaly Musculoskeletal: Pulses present and equal in all extremities, no peripheral edema Motor: no focal deficits noted Neurological: CN II-XII grossly intact, no focal motor or sensory deficits noted Skin: Intact with no visualized rashes Psych: Normal affect and mood Limitations: no limitations Course Vital Signs 11/23/24 11/23/24 22:42 22:53 Temperature 98.0 F Pulse Rate 61 Respiratory 18 65 H Rate Blood Pressure 160/68 183/107 O2 Sat by Pulse 98 Oximetry EKG Findings - EKG Comments: EKG Findings:: My EKG interpretation: Ventricular rate 6, sinus bradycardia,. 1 05/04/1997, QRS 73, QTc 436. No ND prolongation, no QTC prolongation, no ST or T- wave changes noted. Overall, this EKG is unremarkable Medical Decision Making - Medical Decision Making Repeat EKG My EKG interpretation: Ventricular rate 57, sinus bradycardia,. 190, QRS 90, QTc 219. No ND prolongation, no QTC prolongation, no ST or T-wave changes noted. Overall, this EKG is unremarkable Was pt. sent in by a medical professional or institution (, PA, LANDSCAPE TECHNICIAN, urgent care, hospital, or usp...) When possible be specific @ -No Did you speak to anyone other than the patient for history (EMS, parent, family, police, friend...)? What history was obtained from this source @ -No Did you review nursing and triage notes (agree or disagree)? Why? @ -I reviewed and agree with nursing and triage notes Were old charts reviewed (outside hosp., previous admission, EMS record, old EKG, old radiological studies, urgent care reports/EKG's, usp records)? Report findings @ -No old charts were reviewed Differential Diagnosis (chest pain, altered mental status, abdominal pain women, abdominal pain men, vaginal bleeding, musculoskeletal, weakness, fever, dyspnea, syncope, headache, dizziness, GI bleed, back pain, seizure, CVA, palpatations, mental health)? @ -Differential Chest Pain: Stable Angina, Unstable Angina, STEMI, NSTEMI Aortic Dissection, Pneumothorax, Musculoskeletal, Esophageal Spasm GERD, Cholecystitis, Pancreatitis, Zoster, this is not meant to be an all-inclusive list. EKG interpreted by me (3pts min.). @ -See above X-rays interpreted by me (1pt min.). @ -X-ray of the chest is nonacute CT interpreted by me (1pt min.). @ -None done U/S interpreted by me (1pt. min.). @ -None done What testing was considered but not performed or refused? (CT, X-rays, U/S, labs)? Why? @ -None What meds were considered but not given or refused? Why? @ -None Was smoking cessation discussed for >3mins.? @ -No Were there social determinants of health that impacted care today? How? (Homelessness, low income, unemployed, alcoholism, drug addiction, transportation, low edu. Level, literacy, decrease access to med. care, care home, rehab)? @ -No Was there de-escalation of care discussed even if they declined (Discuss DNR or withdrawal of care, Hospice)? DNR status @ -No What co-morbidities impacted this encounter? (DM, HTN, Smoking, COPD, CAD, Cancer, CVA, ARF, Chemo, Hep., AIDS, mental health diagnosis, sleep apnea, morbid obesity)? @ -History, diabetes, hypertension Was patient admitted / discharged? Hospital course, mention meds given and route, prescriptions, significant lab abnormalities, going to OR and other pertinent info. @ -74-year-old high risk patient with chest pain. Patient description suspicious. Her heart score is elevated. She has multiple risk factors. EKG shows no findings of ischemia or infarction. Vital signs are stable. Laborator y evaluation is within acceptable limits. Troponin is negative. Patient given aspirin will be admitted with cardiology consultation. Case discussed with hospitalist for admission Did you discuss the management of the patient with other professionals (professionals i.e. , PA, LANDSCAPE TECHNICIAN, lab, RT, psych nurse, rn social work, director of event management, teacher, commanding officer motorized squad, director of casework department)? Give summary @ -See above Was critical care preformed (if so, how long)? @ -No Undiagnosed new problem with uncertain prognosis? @ -No Drug Therapy requiring intensive monitoring for toxicity (Heparin, Nitro, Insulin, Cardizem)? @ -No Were any procedures done? @ -No Diagnosis/symptom? Acute, or Chronic, or Acute on Chronic? Uncomplicated (without systemic symptoms) or Complicated (systemic symptoms)? @ -Acute coronary syndrome Side effects of treatment? @ -No Exacerbation, Progression, or Severe Exacerbation? @ -No Poses a threat to life or bodily function? How? (Chest pain, USA, PR, pneumonia, PE, COPD, DKA, ARF, appy, cholecystitis, CVA, Diverticulitis, Homicidal, Suicidal, threat to staff... and all critical care pts) @ -yes - Lab Data Result diagrams: 11/23/24 22:57 11/23/24 22:57 Lab Results 11/23/24 11/23/24 11/23/24 Range/Units 22:57 22:57 22:57 WBC 10.6 (3.8-10.6) k/uL RBC 4.49 (3.80-5.40) m/uL Hgb 12.6 (11.4-16.0) gm/dL Hct 38.1 (34.0-46.0) % MCV 84.7 (80.0-100.0) fL MCH 28.0 (25.0-35.0) pg MCHC 33.0 (31.0-37.0) g/dL RDW 13.7 (11.5-15.5) % Plt Count 357 (150-450) k/uL MPV 7.3 Neutrophils % 41 % Lymphocytes % 46 % Monocytes % 6 % Eosinophils % 5 % Basophils % 1 % Neutrophils # 4.4 (1.3-7.7) k/uL Lymphocytes # 4.8 (1.0-4.8) k/uL Monocytes # 0.6 (0-1.0) k/uL Eosinophils # 0.5 (0-0.7) k/uL Basophils # 0.1 (0-0.2) k/uL PT 9.6 L (10.0-12.5) sec INR 0.8 (<1.2) APTT 22.3 (22.0-30.0) sec Sodium 138 (137-145) mmol/L Potassium 3.6 (3.5-5.1) mmol/L Chloride 103 (98-107) mmol/L Carbon Dioxide 26 (22-30) mmol/L Anion Gap 9 mmol/L BUN 28 H (7-17) mg/dL Creatinine 0.76 (0.52-1.04) mg/dL Est GFR (CKD-EPI)AfAm 90 (>60 ml/min/1.73 sqM) Est GFR (CKD-EPI)NonAf 78 (>60 ml/min/1.73 sqM) Glucose 125 H (74-99) mg/dL Calcium 10.1 (8.4-10.2) mg/dL Magnesium 2.0 (1.6-2.3) mg/dL Total Bilirubin 0.3 (0.2-1.3) mg/dL AST 29 (14-36) U/L ALT 20 (4-34) U/L Alkaline Phosphatase 117 (38-126) U/L Troponin I (0.000-0.034) ng/mL Total Protein 7.7 (6.3-8.2) g/dL Albumin 4.8 (3.5-5.0) g/dL 11/23/24 Range/Units 22:57 WBC (3.8-10.6) k/uL RBC (3.80-5.40) m/uL Hgb (11.4-16.0) gm/dL Hct (34.0-46.0) % MCV (80.0-100.0) fL MCH (25.0-35.0) pg MCHC (31.0-37.0) g/dL RDW (11.5-15.5) % Plt Count (150-450) k/uL MPV Neutrophils % % Lymphocytes % % Monocytes % % Eosinophils % % Basophils % % Neutrophils # (1.3-7.7) k/uL Lymphocytes # (1.0-4.8) k/uL Monocytes # (0-1.0) k/uL Eosinophils # (0-0.7) k/uL Basophils # (0-0.2) k/uL PT (10.0-12.5) sec INR (<1.2) APTT (22.0-30.0) sec Sodium (137-145) mmol/L Potassium (3.5-5.1) mmol/L Chloride (98-107) mmol/L Carbon Dioxide (22-30) mmol/L Anion Gap mmol/L BUN (7-17) mg/dL Creatinine (0.52-1.04) mg/dL Est GFR (CKD-EPI)AfAm (>60 ml/min/1.73 sqM) Est GFR (CKD-EPI)NonAf (>60 ml/min/1.73 sqM) Glucose (74-99) mg/dL Calcium (8.4-10.2) mg/dL Magnesium (1.6-2.3) mg/dL Total Bilirubin (0.2-1.3) mg/dL AST (14-36) U/L ALT (4-34) U/L Alkaline Phosphatase (38-126) U/L Troponin I <0.012 (0.000-0.034) ng/mL Total Protein (6.3-8.2) g/dL Albumin (3.5-5.0) g/dL Disposition Clinical Impression: Chest pain Disposition: ADMITTED IP TO THIS [facility] Condition: Fair Referrals: Stefan Mcgrath DO [Primary Care Provider] - 1-2 days Decision Time: 00:03
[2024-11-23] MEDS: ASPIRIN 81 MG PO STA (23:09)
[2024-11-23 23:12] LABS: Basophils # (A) 0.1 k/uL (0-0.2); Basophils % (A) 1 %; Eosinophils # (A) 0.5 k/uL (0-0.7); Eosinophils % (A) 5 %; HCT 38.1 % (34.0-46.0); HGB 12.6 gm/dL (11.4-16.0); Lymphocytes # (A) 4.8 k/uL (1.0-4.8); Lymphocytes % (A) 46 %; MCV 84.7 fL (80.0-100.0); Mean Platelet Volume 7.3; Monocytes # (A) 0.6 k/uL (0-1.0); Monocytes % (A) 6 %; Neutrophils # (A) 4.4 k/uL (1.3-7.7); Neutrophils % (A) 41 %; Platelet Count 357 k/uL (150-450); RBC 4.49 m/uL (3.80-5.40); RDW 13.7 % (11.5-15.5); WBC 10.6 k/uL (3.8-10.6)
--- NOTE | 2024-11-23 23:13 | XR ---
EXAMINATION TYPE: XR chest 2V DATE OF EXAM: 11/23/2024 CLINICAL INDICATION: Female, 74 years old with history of Chest Pain, TECHNIQUE: Frontal and lateral views of the chest are obtained. COMPARISON: Chest x-ray July 23, 2024 FINDINGS: There is patchy left basilar opacity. Right lung is clear. The cardiac silhouette size re javy mildly enlarged. Surgical changes in the cervical spine is partially imaged similar to prior. IMPRESSION: Mild cardiomegaly with left basilar acute infiltrate and/or atelectasis. [facility], , 11/23/2024 11:11 PM
[2024-11-23 23:28] LABS: ALT 20 U/L (4-34); AST 29 U/L (14-36); African American GFR (CKD) 90 (>60 ml/min/1.73 sqM); Albumin 4.8 g/dL (3.5-5.0); Alkaline Phosphatase 117 U/L (38-126); Anion Gap 9 mmol/L; Blood Urea Nitrogen 28 mg/dL (7-17); Calcium 10.1 mg/dL (8.4-10.2); Carbon Dioxide 26 mmol/L (22-30); Chloride 103 mmol/L (98-107); Glucose 125 mg/dL (74-99); Non-African American GFR(CKD) 78 (>60 ml/min/1.73 sqM); Potassium 3.6 mmol/L (3.5-5.1); Sodium 138 mmol/L (137-145); Total Bilirubin 0.3 mg/dL (0.2-1.3); Total Protein 7.7 g/dL (6.3-8.2)
[2024-11-23 23:34] LABS: INR 0.8 (<1.2); Partial Thromboplastin Time 22.3 sec (22.0-30.0); Prothrombin Time 9.6 sec (10.0-12.5)
[2024-11-24] MEDS ORDERED: NITROGLYCERIN SL TABS 0.4 MG TAB SUBLINGUAL PRN ×3 (00:01→10:14)
[2024-11-24] MEDS ORDERED: ALPRAZolam 0.25 MG TAB PO PRN ×2 (08:25→10:14)
[2024-11-24] MEDS ORDERED: ALPRAZolam 0.5 MG TAB PO PRN ×2 (08:25→10:14)
--- NOTE | 2024-11-24 08:41 | P.HPIM ---
History of Present Illness This is a pleasant 74 years old female who presents because of chest pain which started yesterday about 5/10, currently significantly improved rated as 0-1/10 in severity Transverse in the back and later in the middle of her chest, it comes and goes. Nonspecific in character and improved with aspirin She has little dyspnea in the beginning but currently denies any shortness of breath no coughing. She has little headache about 3/10. No weakness or numbness. She has chronic neck and back surgery symptoms No urinary symptoms no abdominal pain vomiting or diarrhea currently. Yesterday she has bad episode of diarrhea x 1 but no more. She is afebrile and hemodynamically stable She has unremarkable CBC, BMP, LFT and INR. Troponin x 3 are negative. EKG showing sinus bradycardia at [address]-T changes Chest x-ray showing mild cardiomegaly with left lower lobe atelectasis versus infiltrate. Patient takes baby aspirin 81 mg at home every day Review of Systems Review of systems CONSTITUTIONAL: No fever, no malaise, no fatigue. HEENT: No recent visual problems or hearing problems. Denied any sore throat. CARDIOVASCULAR: No orthopnea, PND, no palpitations, no syncope. PULMONARY: No shortness of breath, no cough, no hemoptysis. GASTROINTESTINAL: No diarrhea, no nausea, no vomiting, no abdominal pain. Normoactive bowel sounds. NEUROLOGICAL: No headaches, no weakness, no numbness. HEMATOLOGICAL: Denies any bleeding or petechiae. GENITOURINARY: Denies any burning micturition, frequency, or urgency. MUSCULOSKELETAL/RHEUMATOLOGICAL: Denies any joint pain, swelling, or any muscle pain. ENDOCRINE: Denies any polyuria or polydipsia. Past Medical History Past Medical History: CVA/TIA, Eye Disorder, GERD/Reflux, Hyperlipidemia, Hypertension Additional Past Medical History / Comment(s): TIA, gastric ulcer, constipation, chronic back pain, cervical and back DDD, R eye detached retina with surgery, whooping cough as a child History of Any Multi-Drug Resistant Organisms: None Reported Past Surgical History: Section, Hysterectomy, Tonsillectomy, Tubal Ligation Additional Past Surgical History / Comment(s): R eye surgery for detached retina, bilateral eye lasik surgery for vision, bilateral eye cataract removals/lens implants, EGD, colonoscope, C2 plate placed, Past Anesthesia/Blood Transfusion Reactions: No Reported Reaction Past Psychological History: Anxiety, Depression Smoking Status: Never smoker Past Alcohol Use History: Occasional Past Drug Use History: None Reported - Past Family History Father History Unknown: Yes Additional Family Medical History / Comment(s): Father in a MVA at the age of 35 yrs. Mother Family Medical History: Coronary Artery Disease (CAD), Diabetes Mellitus, Myocardial Infarction (MS), Renal Disease Additional Family Medical History / Comment(s): Mother is 87yrs old. Pt does not recall at what age mother had a MS. Medications and Allergies Home Medications Medication Instructions Recorded Confirmed Type Lisinopril-Hctz 20-25 mg 1 tab PO HS 07/25/19 03/20/23 History [Zestoretic 20-25] Metoprolol Tartrate [Lopressor] 25 mg PO HS 07/25/19 03/20/23 History Pantoprazole [Protonix] 40 mg PO HS 07/25/19 03/20/23 History Aspirin EC [Ecotrin Low Dose] 81 mg PO DAILY 04/04/21 03/20/23 History Cholecalciferol [Vitamin D3 (25 25 mcg PO DAILY 04/04/21 03/20/23 History Mcg = 1000 Iu)] Meloxicam [Mobic] 7.5 mg PO BID 04/04/21 03/20/23 History Vitamin B Complex 1 cap PO DAILY 04/04/21 03/20/23 History HYDROcodone/APAP 5-325MG [[place] 1 tab PO BID PRN 03/20/23 03/20/23 History 5-325] metFORMIN HCL ER [Glucophage XR] 500 mg PO AC-SUPPER PRN 03/20/23 03/20/23 History Atorvastatin [Lipitor] 40 mg PO HS #30 tab 03/23/23 Rx LORazepam [Ativan] 1 mg PO HS 3 Days #3 tab 04/13/23 Rx Allergies Allergy/AdvReac Type Severity Reaction Status Date / Time ampicillin Allergy Rash/Hives Verified 11/23/24 22:42 nickel Allergy Rash/Hives Verified 11/23/24 22:42 Physical Exam Vitals: Vital Signs Temp Pulse Resp BP Pulse Ox 11/24/24 06:00 51 L 17 125/69 95 11/24/24 03:00 55 L 17 148/61 98 11/24/24 02:00 51 L 17 144/68 95 11/24/24 00:14 54 L 18 165/80 97 11/23/24 22:53 65 H 183/107 11/23/24 22:42 98.0 F 61 18 160/68 98 Intake and Output 11/23/24 11/24/24 11/24/24 22:59 06:59 14:59 Other: Weight 59.874 kg GENERAL: The patient is alert and oriented x3, not in any acute distress. Well developed, well nourished. HEENT: Pupils are round and equally reacting to light. EOMI. No scleral icterus. No conjunctival pallor. Normocephalic, atraumatic. No pharyngeal erythema. No thyromegaly. CARDIOVASCULAR: S1 and S2 present. No murmurs, rubs, or gallops. PULMONARY: Chest is clear to auscultation, no wheezing , no crackles. ABDOMEN: Soft, nontender, nondistended, normoactive bowel sounds. No palpable organomegaly. MUSCULOSKELETAL: No joint swelling or deformity. EXTREMITIES: No cyanosis, clubbing, or pedal edema. NEUROLOGICAL: Gross neurological examination did not reveal any focal deficits. SKIN: No rashes. no petechiae. Results CBC & Chem 7: 11/23/24 22:57 11/23/24 22:57 Labs: Abnormal Lab Results - Last 24 Hours (Table) 11/23/24 11/23/24 Range/Units 22:57 22:57 PT 9.6 L (10.0-12.5) sec BUN 28 H (7-17) mg/dL Glucose 125 H (74-99) mg/dL Assessment and Plan Assessment: Chest pain, rule out cardiac causes Mild left lower lobe infiltrate versus atelectasis. Unlikely pneumonia. Follow-up procalcitonin History of CVA Hyperlipidemia Hypertension Gastroesophageal reflux disease Chronic low back pain status post surgery of the neck and back Plan: Cardiology consult Continue with aspirin Patient may benefit from stress test Check pro- Calcitonin although the suspicion of pneumonia is low related to her left lower lobe atelectasis Labs and medication were reviewed.. Continue same treatment. Continue with s ymptomatic treatment. Resume home medication. Monitor labs and vitals. DVT and GI prophylaxis. Further recommendations as per clinical course of the patient DVT prophylaxis: Subcutaneous heparin GI Prophylaxis: Pepcid PT/OT: Pending Prognosis is guarded
--- NOTE | 2024-11-24 09:23 | P.CRDCN ---
History of Present Illness History of present illness: HISTORY OF PRESENT ILLNESS: This is a 74-year-old female with a past medical history significant for hypertension, hyperlipidemia, and diabetes. Patient used to follow in the office with Dr. Gomez but has not been seen since 2020. We have been asked to see the patient in consultation for chest pain. Patient examined at the bedside. Patient states yesterday afternoon she started to have pain in her back and in between her shoulder blades. She states then she developed pressure in her chest. She states that she initially thought her discomfort was due to her back surgery she had about 3 months ago however this pain was different than the pain she has had previously and she became concerned and came to the emergency room for further evaluation. She did receive aspirin in the emergency room. She reports improvement in her pain and denies any chest pain at the time of examin ation. DIAGNOSTICS: - EKG reveals sinus mechanism with nonspecific ST-T wave changes. - Chest xray mild cardiomegaly with left basilar acute infiltrate and/or atelectasis. - Laboratory data: WBC 10.6. Hemoglobin 12.6. Platelet count 357. Sodium 138. Potassium 3.6. BUN 28. Creatinine 0.76. Magnesium 2.0. Troponin negative x 3. - Current home cardiac medication list not updated at the time of examination - Most recent echocardiogram obtained in March 2023 revealed ejection fraction 55 to 60%, no obvious regional wall motion abnormalities, trace TR -Patient underwent stress echocardiogram in November 2019 which was negative for ischemia REVIEW OF SYSTEMS: At the time of my exam: CONSTITUTIONAL: Denies fever or chills. HEENT: Denies blurred vision, vision changes, or eye pain. Denies hemoptysis CARDIOVASCULAR: Denies chest pain. Denies orthopnea. Denies PND. Denies palpitations RESPIRATORY: Denies shortness of breath. GASTROINTESTINAL: Denies abdominal pain. Denies nausea or vomiting. HEMATOLOGIC: Denies bleeding disorders. GENITOURINARY: Denies any blood in urine. SKIN: Denies pruitis. Denies rash. PHYSICAL EXAM: VITAL SIGNS: Reviewed. GENERAL: Well-developed in no acute distress. HEENT: Head is normocephalic. Pupils are equal, round. Sclerae anicteric. Mucous membranes of the mouth are moist. Neck supple. No JVD or thyromegaly LUNGS: Respirations even and unlabored. Lungs essentially clear to auscultation bilaterally. HEART: Regular rate and rhythm. S1 and S2 heard. ABDOMEN: Soft. Nondistended. Nontender. EXTREMITIES: Normal range of motion. No clubbing or cyanosis. Peripheral pulses intact. No lower extremity edema NEUROLOGIC: Awake and alert. Oriented x 3. ASSESSMENT: Chest pain Back pain History of back surgery 3 months ago per patient Hypertension Hyperlipidemia Diabetes PLAN: Obtain 2D echo to assess cardiac structure and function Resume home cardiac medications once medication list has been verified Add aspirin and atorvastatin Check D-dimer Patient to undergo cardiac catheterization today with Dr. Vega pending results of D-dimer Further recommendations pending patient course Nurse practitioner note has been reviewed by physician. Signing provider agrees with the documented findings, assessment, and plan of care documented by FISH FARM MANAGER as a scribe. Past Medical History Past Medical History: CVA/TIA, Eye Disorder, GERD/Reflux, Hyperlipidemia, Hypertension Additional Past Medical History / Comment(s): TIA, gastric ulcer, constipation, chronic back pain, cervical and back DDD, R eye detached retina with surgery, whooping cough as a child History of Any Multi-Drug Resistant Organisms: None Reported Past Surgical History: Section, Hysterectomy, Tonsillectomy, Tubal Ligation Additional Past Surgical History / Comment(s): R eye surgery for detached retina, bilateral eye lasik surgery for vision, bilateral eye cataract removals/lens implants, EGD, colonoscope, C2 plate placed, Past Anesthesia/Blood Transfusion Reactions: No Reported Reaction Past Psychological History: Anxiety, Depression Smoking Status: Never smoker Past Alcohol Use History: Occasional Past Drug Use History: None Reported - Past Family History Father History Unknown: Yes Additional Family Medical History / Comment(s): Father in a MVA at the age of 35 yrs. Mother Family Medical History: Coronary Artery Disease (CAD), Diabetes Mellitus, Myocardial Infarction (MS), Renal Disease Additional Family Medical History / Comment(s): Mother is 87yrs old. Pt does not recall at what age mother had a MS. Medications and Allergies Home Medications Medication Instructions Recorded Confirmed Type Lisinopril-Hctz 20-25 mg 1 tab PO HS 07/25/19 03/20/23 History [Zestoretic 20-25] Metoprolol Tartrate [Lopressor] 25 mg PO HS 07/25/19 03/20/23 History Pantoprazole [Protonix] 40 mg PO HS 07/25/19 03/20/23 History Aspirin EC [Ecotrin Low Dose] 81 mg PO DAILY 04/04/21 03/20/23 History Cholecalciferol [Vitamin D3 (25 25 mcg PO DAILY 04/04/21 03/20/23 History Mcg = 1000 Iu)] Meloxicam [Mobic] 7.5 mg PO BID 04/04/21 03/20/23 History Vitamin B Complex 1 cap PO DAILY 04/04/21 03/20/23 History HYDROcodone/APAP 5-325MG [[place] 1 tab PO BID PRN 03/20/23 03/20/23 History 5-325] metFORMIN HCL ER [Glucophage XR] 500 mg PO AC-SUPPER PRN 03/20/23 03/20/23 History Atorvastatin [Lipitor] 40 mg PO HS #30 tab 03/23/23 Rx LORazepam [Ativan] 1 mg PO HS 3 Days #3 tab 04/13/23 Rx Allergies Allergy/AdvReac Type Severity Reaction Status Date / Time ampicillin Allergy Rash/Hives Verified 11/23/24 22:42 nickel Allergy Rash/Hives Verified 11/23/24 22:42 Physical Exam Vitals: Vital Signs Temp Pulse Resp BP Pulse Ox 11/24/24 06:00 51 L 17 125/69 95 11/24/24 03:00 55 L 17 148/61 98 11/24/24 02:00 51 L 17 144/68 95 11/24/24 00:14 54 L 18 165/80 97 11/23/24 22:53 65 H 183/107 11/23/24 22:42 98.0 F 61 18 160/68 98 Intake and Output 11/23/24 11/24/24 11/24/24 22:59 06:59 14:59 Other: Weight 59.874 kg Results 11/23/24 22:57 11/23/24 22:57 Cardiac Enzymes 11/23/24 11/23/24 11/24/24 Range/Units 22:57 22:57 02:17 AST 29 (14-36) U/L Troponin I <0.012 <0.012 (0.000-0.034) ng/mL 11/24/24 Range/Units 05:34 AST (14-36) U/L Troponin I <0.012 (0.000-0.034) ng/mL Coagulation 11/23/24 Range/Units 22:57 PT 9.6 L (10.0-12.5) sec APTT 22.3 (22.0-30.0) sec CBC 11/23/24 Range/Units 22:57 WBC 10.6 (3.8-10.6) k/uL RBC 4.49 (3.80-5.40) m/uL Hgb 12.6 (11.4-16.0) gm/dL Hct 38.1 (34.0-46.0) % Plt Count 357 (150-450) k/uL Comprehensive Metabolic Panel 11/23/24 Range/Units 22:57 Sodium 138 (137-145) mmol/L Potassium 3.6 (3.5-5.1) mmol/L Chloride 103 (98-107) mmol/L Carbon Dioxide 26 (22-30) mmol/L BUN 28 H (7-17) mg/dL Creatinine 0.76 (0.52-1.04) mg/dL Glucose 125 H (74-99) mg/dL Calcium 10.1 (8.4-10.2) mg/dL AST 29 (14-36) U/L ALT 20 (4-34) U/L Alkaline Phosphatase 117 (38-126) U/L Total Protein 7.7 (6.3-8.2) g/dL Albumin 4.8 (3.5-5.0) g/dL Current Medications Generic Name Dose Route Start Last Admin Trade Name Freq PRN Reason Stop Dose Admin Alprazolam 0.25 mg 11/24/24 08:25 Alprazolam 0.25 Mg Tab PO Q6HR PRN Mild Anxiety Alprazolam 0.5 mg 11/24/24 08:25 Alprazolam 0.5 Mg Tab PO Q6HR PRN Moderate Anxiety Aspirin 81 mg 11/25/24 09:00 Aspirin 81 Mg PO DAILY MOUSTAPHA Atorvastatin Calcium 80 mg 11/24/24 21:00 Atorvastatin 80 Mg Tab PO HS MOUSTAPHA Heparin Sodium (Porcine) 10, 1,001 mls @ 999 mls/hr 11/25/24 07:00 000 unit/ Sodium Chloride IRRIGATION 11/25/24 23:00 ONCE PRN INTRA-OP Heparin Sodium (Porcine) 2,500 250.5 mls @ 250 mls/hr 11/25/24 07:00 unit/ Sodium Chloride IRRIGATION 11/25/24 23:00 ONCE PRN INTRA-OP Sodium Chloride 1,000 ml/ IV 1,000 mls @ 59.874 mls/hr 11/24/24 08:30 Solution IV .[id number] MOUSTAPHA 1 ML/KG/HR Nitroglycerin 0.4 mg 11/24/24 08:25 Nitroglycerin Sl Tabs 0.4 Mg Tab SUBLINGUAL Q5M PRN Chest Pain Intake and Output 11/23/24 11/24/24 11/24/24 22:59 06:59 14:59 Other: Weight 59.874 kg 11/23/24 22:57 11/23/24 22:57
[2024-11-24] MEDS: SODIUM CHLORIDE 0.9% 1,000 ML in EMPTY BAG 1 BAG IV SCH (09:51)
[2024-11-24] MEDS: ATORVASTATIN 80 MG TAB PO STA (09:51)
[2024-11-24] MEDS: ASPIRIN 325 MG TAB PO STA (09:51)
--- NOTE | 2024-11-24 13:12 | CT ---
EXAMINATION TYPE: CT angio chest DATE OF EXAM: 11/24/2024 COMPARISON: CTA chest April 13, 2023 CLINICAL INDICATION: Female, 74 years old with history of Elevated D-dimer rule out PE, ELEVATED D-DI MIRANDA, TECHNIQUE: CTA scan of the thorax is performed with IV Contrast, patient injected with 60 mL of Isovue 370, pulm onary embolism protocol. MIP Images are created on CT scanner and reviewed. CT DLP: 284.9 mGycm. Automated Exposure Control for Dose Reduction was Utilized. FINDINGS: LUNGS: The lungs are grossly clear, there is no concerning parenchymal mass or focal consolidation id entified. There is no pleural effusion or pneumothorax seen. The tracheobronchial tree is patent. HEART: Size within normal limits. Moderate coronary artery calcifications present. MEDIASTINUM: There is satisfactory enhancement of the pulmonary artery and its branches, there is no CT evidence for pulmonary embolism. There are no greater than 1 cm hilar or mediastinal lymph nodes. No cardiomegaly . Tiny anterior pericardial effusion is seen. OTHER: Multilevel spurring in the thoracic spine is present. IMPRESSION: 1. No CT evidence for acute pulmonary embolism. 2. No suspicious acute pulmonary process. [facility], , 11/24/2024 1:09 PM
--- NOTE | 2024-11-24 17:18 | CA ---
Transthoracic Echo Report Name: Harriet Wilder Age: 74 Gender: F : 1950 Exam Date: 11/24/2024 13:31 Exam Location: [facility] Ht (in): 60 Wt (lb): 132 Ordering Physician: Adriana Adams Attending/Referring Phys: [id number], Bryan Stoker Installer Kwabena Omer, RDCS Procedure CPT: Indications: LV function, CP, abnormal EKG Cardiac Hx: CAD, CO, Diabetes Technical Quality: Good Contrast 1: Total Dose (mL): Contrast 2: Total Dose (mL): MEASUREMENTS (Male / Female) Normal Values 2D ECHO LV Diastolic Diameter PLAX 4.3 cm 4.2 - 5.9 / 3.9 - 5.3 cm LV Systolic Diameter PLAX 2.2 cm IVS Diastolic Thickness 0.9 cm 0.6 - 1.0 / 0.6 - 0.9 cm LVPW Diastolic Thickness 0.9 cm 0.6 - 1.0 / 0.6 - 0.9 cm LV Relative Wall Thickness 0.4 RV Internal Dim ED PLAX 3.6 cm LVOT Diameter 1.5 cm LA Systolic Diameter LX 3.4 cm 3.0 - 4.0 / 2.7 - 3.8 cm LV Diastolic Volume MOD BP 87.0 cm??? 67 - 155 / 56 - 104 cm??? LV Systolic Volume MOD BP 31.6 cm??? 22 - 58 / 19 - 49 cm??? LV Ejection Fraction MOD BP 63.6 % >= 55 % LV Cardiac Index MOD BP 2030.9 cm???/min???m??? LV Diastolic Volume MOD 4C 94.5 cm??? LV Systolic Volume MOD 4C 37.2 cm??? LV Ejection Fraction MOD 4C 60.6 % LV Cardiac Index MOD 4C 2102.4 cm???/min???m??? LV Diastolic Length 4C 7.4 cm LV Systolic Length 4C 6.0 cm LV Diastolic Volume MOD 2C 79.3 cm??? LV Systolic Volume MOD 2C 26.8 cm??? LV Ejection Fraction MOD 2C 66.2 % LV Cardiac Index MOD 2C 1929.0 cm???/min???m??? LV Diastolic Length 2C 7.3 cm LV Systolic Length 2C 6.2 cm LA Volume 44.3 cm??? 18 - 58 / 22 - 52 cm??? LA Volume Index 27.5 cm???/m??? 16 - 28 cm???/m??? DOPPLER MV Peak Velocity 50.9 cm/s MV Peak Gradient 1.0 mmHg MV Mean Velocity 24.7 cm/s MV Mean Gradient 0.6 mmHg MV Velocity Time Integral 14.5 cm MV Area PHT 3.3 cm??? Mitral E Point Velocity 75.8 cm/s Mitral A Point Velocity 77.6 cm/s Mitral E to A Ratio 1.0 MV Deceleration Time 243.0 ms TR Peak Velocity 212.5 cm/s TR Peak Gradient 18.1 mmHg Right Atrial Pressure 5.0 mmHg Pulmonary Artery Systolic Pressu 23.1 mmHg Right Ventricular Systolic Press 23.1 mmHg FINDINGS Left Ventricle Left ventricular ejection fraction is estimated at 60-65%. Normal Left ventricular size, wall thickness, systolic function with no obvious regional wall motion abnormalities. Right Ventricle Mild right ventricular dilatation with normal function.right ventricular systolic pressure within normal limits. Right Atrium Normal right atrial size. Left Atrium Normal left atrial size. Mitral Valve Mitral valve thickened. No mitral stenosis. Trace mitral regurgitation. Aortic Valve Trileaflet aortic valve. Thickened aortic valve without stenosis. No aortic stenosis. No aortic regurgitation. Tricuspid Valve Structurally normal tricuspid valve. No tricuspid stenosis. Trace to mild tricuspid regurgitation. Pulmonic Valve Pulmonic valve not well visualize. No pulmonic stenosis. Trace pulmonic regurgitation. Pericardium No pericardial effusion. No pleural effusion. Aorta Normal size aortic root and proximal ascending aorta. CONCLUSIONS Normal left ventricular size wall motion and systolic function Previewed by: Dr. Renoz Vega MD (Electronically Signed) Final Date: 24 November 2024 17:17
[2024-11-24] MEDS ORDERED: ACETAMINOPHEN TAB 325 MG TAB PO PRN (19:41)
[2024-11-24] MEDS: traZODone HCL 50 MG TAB PO SCH (20:22)
[2024-11-24] MEDS: lisinopriL 20 MG TAB PO SCH (20:23)
[2024-11-24] MEDS: methocarbamoL 750 MG TAB PO SCH (20:23)
[2024-11-24] MEDS: ATORVASTATIN 80 MG TAB PO SCH (20:23)
[2024-11-24] MEDS: PANTOPRAZOLE 40 MG TABLET PO SCH (20:23)
[2024-11-24] MEDS ORDERED: PRAVASTATIN SODIUM 20 MG TAB PO SCH (21:00)
[2024-11-25] MEDS: ASPIRIN 325 MG TAB PO ONE (05:28)
[2024-11-25] MEDS: ATORVASTATIN 80 MG TAB PO ONE (05:28)
[2024-11-25] MEDS: SODIUM CHLORIDE 0.9% 1,000 ML in EMPTY BAG 1 BAG IV SCH (05:29)
[2024-11-25] MEDS ORDERED: HEPARIN SODIUM,PORCINE (1 ML) 2,500 UNIT in SODIUM CHLORIDE 0.9% 250 ML IRRIGATION PRN (07:00)
[2024-11-25] MEDS ORDERED: HEPARIN SODIUM,PORCINE 10,000 UNIT in SODIUM CHLORIDE 0.9% 1,000 ML IRRIGATION PRN (07:00)
[2024-11-25 08:44] LABS: BUN/Creat Ratio 29.33 Ratio (12.00-20.00); Blood Urea Nitrogen 17.6 mg/dL (9.0-27.0); Calcium 9.4 mg/dL (8.7-10.3); Chloride 111 mmol/L (96-109); Chol/HDL Ratio 2.86 Ratio; Glucose 101 mg/dL (70-110); LDL Cholesterol,Calculated 80.7 mg/dL (0.0-131.0); Potassium 3.9 mmol/L (3.5-5.5); Sodium 145 mmol/L (135-145)
[2024-11-25] MEDS: METOPROLOL SUCCINATE (ER) 50 MG TAB.ER.24H PO SCH (08:56)
[2024-11-25] MEDS: amLODIPine 5 MG TAB PO SCH (08:56)
[2024-11-25] MEDS: ASPIRIN 81 MG PO SCH (08:56)
[2024-11-25] MEDS ORDERED: ASPIRIN 325 MG TAB PO SCH (09:00)
--- NOTE | 2024-11-25 09:31 | P.PN ---
Subjective HISTORY OF PRESENT ILLNESS: This is a 74-year-old female with a past medical history significant for hypertension, hyperlipidemia, and diabetes. Patient used to follow in the office with Dr. Gomez but has not been seen since 2020. We have been asked to see the patient in consultation for chest pain. Patient examined at the bedside. Patient states yesterday afternoon she started to have pain in her back and in between her shoulder blades. She states then she developed pressure in her chest. She states that she initially thought her discomfort was due to her back surgery she had about 3 months ago however this pain was different than the pain she has had previously and she became concerned and came to the emergency room for further evaluation. She did receive aspirin in the emergency room. She reports improvement in her pain and denies any chest pain at the time of examination. DIAGNOSTICS: - EKG reveals sinus mechanism with nonspecific ST-T wave changes. - Chest xray mild cardiomegaly with left basilar acute infiltrate and/or atelectasis. - Laboratory data: WBC 10.6. Hemoglobin 12.6. Platelet count 357. Sodium 138. Potassium 3.6. BUN 28. Creatinine 0.76. Magnesium 2.0. Troponin negative x 3. - Current home cardiac medication list not updated at the time of examination - Most recent echocardiogram obtained in March 2023 revealed ejection fraction 55 to 60%, no obvious regional wall motion abnormalities, trace TR -Patient underwent stress echocardiogram in November 2019 which was negative for ischemia 11/25/2024 Patient examined this morning to bedside. Patient denies any chest pain or pressure. She denies any shortness of breath. Patient underwent CTA yesterday which was negative for pulmonary embolism but did reveal moderate coronary artery calcifications. Echocardiogram completed revealing ejection fraction 60 to 65% with no obvious regional wall motion abnormalities, trace MR, and trace to mild TR. vital signs are stable. Patient's blood pressures have been elevated with a systolic between [id number]. PHYSICAL EXAM: VITAL SIGNS: Reviewed. GENERAL: Well-developed in no acute distress. HEENT: Head is normocephalic. Pupils are equal, round. Sclerae anicteric. Mucous membranes of the mouth are moist. Neck supple. No JVD or thyromegaly LUNGS: Respirations even and unlabored. Lungs essentially clear to auscultation bilaterally. HEART: Regular rate and rhythm. S1 and S2 heard. ABDOMEN: Soft. Nondistended. Nontender. EXTREMITIES: Normal range of motion. No clubbing or cyanosis. Peripheral pulses intact. No lower extremity edema NEUROLOGIC: Awake and alert. Oriented x 3. ASSESSMENT: Chest pain Back pain History of back surgery 3 months ago per patient Hypertension Hyperlipidemia Diabetes PLAN: Continue current cardiac medications including aspirin, amlodipine, metoprolol, Lipitor, and lisinopril Increase amlodipine from 5 mg to 10 mg daily for optimal blood pressure control Patient to undergo cardiac catheterization today with Dr. Vega Further recommendations pending patient course Nurse practitioner note has been reviewed by physician. Signing provider agrees with the documented findings, assessment, and plan of care documented by DECAL MAKER as a scribe. Objective - Vital Signs Vital signs: Vital Signs Temp 97.9 F 11/25/24 02:00 Pulse 61 11/25/24 02:00 Resp 16 11/25/24 02:00 BP 159/67 11/25/24 02:00 Pulse Ox 98 11/25/24 02:00 FiO2 Intake & Output 11/24/24 11/25/24 11/25/24 18:59 06:59 18:59 Weight 59.874 kg Other: # Voids 2 - Labs CBC & Chem 7: 11/23/24 22:57 11/25/24 05:17 Labs: Abnormal Lab Results - Last 24 Hours (Table) 11/24/24 11/25/24 Range/Units 09:05 05:17 D-Dimer 1.69 H (<0.60) mg/L FEU Chloride 111 H (96-109) mmol/L BUN/Creatinine Ratio 29.33 H (12.00-20.00) Ratio
[2024-11-25] MEDS: amLODIPine 5 MG TAB PO STA (10:17)
[2024-11-25] MEDS: IV FLUID CONTINUATION 950 ML IV ONE (11:57)
[2024-11-25] MEDS: fentaNYL (PF) 50 MCG/1 ML VIAL IVP ONE (12:02)
[2024-11-25] MEDS: MIDAZOLAM 2 MG/2 ML VIAL IVP ONE (12:02)
[2024-11-25] MEDS: LIDOCAINE 1% INJ 10MG/ML (20 ML MDV) SQ ONE (12:04)
[2024-11-25] MEDS: VERAPAMIL SYRINGE (5 MG/10 ML) INTRAARTER ONE (12:05)
[2024-11-25] MEDS: HEPARIN SODIUM 1,000 UN/ML (10ML VL) IVP ONE (12:09)
[2024-11-25] MEDS: IOPAMIDOL-370 100ML BTL INJ ONE (12:13)
[2024-11-25] MEDS ORDERED: RX INFO: IV CONTRAST WAS GIVEN 1 EACH MISC MISCELLANE PRN (12:23)
[2024-11-25] MEDS: SODIUM CHLORIDE 0.9% 1,000 ML IV SCH (12:31)
--- NOTE | 2024-11-25 21:09 | P.PN ---
Subjective This is a pleasant 74 years old female who presents because of chest pain which started yesterday about 5/10, currently significantly improved rated as 0-1/10 in severity Transverse in the back and later in the middle of her chest, it comes and goes. Nonspecific in character and improved with aspirin She has little dyspnea in the beginning but currently denies any shortness of breath no coughing. She has little headache about 3/10. No weakness or numbness. She has chronic neck and back surgery symptoms No urinary symptoms no abdominal pain vomiting or diarrhea currently. Yesterday she has bad episode of diarrhea x 1 but no more. She is afebrile and hemodynamically stable She has unremarkable CBC, BMP, LFT and INR. Troponin x 3 are negative. EKG showing sinus bradycardia at [address]-T changes Chest x-ray showing mild cardiomegaly with left lower lobe atelectasis versus infiltrate. Patient takes baby aspirin 81 mg at home every day 11/25 Patient with no chest pain today. No dyspnea no other new complaint Patient provideCalcitonin came back negative at 0.06 D-dimer was elevated 1.65, CT of the chest showing no acute pulmonary process, no pulmonary embolism, I reviewed the CT by myself and agree Echocardiogram showed ejection fraction 60 to 65% also I reviewed the echocardiogram Patient eval by tube lancer and underwent cardiac catheter today and the result is pending Cardiology following closely Review of systems CONSTITUTIONAL: No fever, no malaise, no fatigue. HEENT: No recent visual problems or hearing problems. Denied any sore throat. CARDIOVASCULAR: No orthopnea, PND, no palpitations, no syncope. PULMONARY: No shortness of breath, no cough, no hemoptysis. GASTROINTESTINAL: No diarrhea, no nausea, no vomiting, no abdominal pain. Normoactive bowel sounds. Active Medications Generic Name Dose Route Start Last Admin Trade Name Freq PRN Reason Stop Dose Admin Acetaminophen 650 mg 11/24/24 19:41 Acetaminophen Tab 325 Mg Tab PO Q6HR PRN Fever and/ or Pain Alprazolam 0.25 mg 11/24/24 10:14 Alprazolam 0.25 Mg Tab PO Q6HR PRN Mild Anxiety Alprazolam 0.5 mg 11/24/24 10:14 Alprazolam 0.5 Mg Tab PO Q6HR PRN Moderate Anxiety Amlodipine Besylate 10 mg 11/26/24 09:00 Amlodipine 10 Mg Tab PO DAILY MOUSTAPHA Aspirin 81 mg 11/25/24 09:00 11/25/24 08:56 Aspirin 81 Mg PO Not Given DAILY MOUSTAPHA Atorvastatin Calcium 80 mg 11/24/24 21:00 11/24/24 20:23 Atorvastatin 80 Mg Tab PO 80 mg HS MOUSTAPHA Administration Heparin Sodium (Porcine) 10, 1,001 mls @ 999 mls/hr 11/25/24 07:00 000 unit/ Sodium Chloride IRRIGATION 11/25/24 23:00 ONCE PRN INTRA-OP Heparin Sodium (Porcine) 2,500 250.5 mls @ 250 mls/hr 11/25/24 07:00 unit/ Sodium Chloride IRRIGATION 11/25/24 23:00 ONCE PRN INTRA-OP Sodium Chloride 1,000 mls @ 75 mls/hr 11/25/24 12:30 11/25/24 12:31 Saline 0.9% IV 75 mls/hr .[id number] MOUSTAPHA Administration Isosorbide Mononitrate 30 mg 11/26/24 09:00 Isosorbide Mononitrate Er 30 Mg Tab.Er.24h PO DAILY MOUSTAPHA Lisinopril 40 mg 11/24/24 21:00 11/24/24 20:23 Lisinopril 20 Mg Tab PO 40 mg HS MOUSTAPHA Administration Methocarbamol 750 mg 11/24/24 21:00 11/24/24 20:23 Methocarbamol 750 Mg Tab PO 750 mg HS MOUSTAPHA Administration Metoprolol Succinate 50 mg 11/25/24 09:00 11/25/24 08:56 Metoprolol Succinate (Er) 50 Mg Tab.Er.24h PO 50 mg DAILY MOUSTAPHA Administration Miscellaneous Information 1 each 11/25/24 12:23 Rx Info: Iv Contrast Was Given 1 Each Misc MISCELLANE 11/27/24 12:23 DAILY PRN Per Protocol Nitroglycerin 0.4 mg 11/24/24 10:14 Nitroglycerin Sl Tabs 0.4 Mg Tab SUBLINGUAL Q5M PRN Chest Pain Pantoprazole Sodium 40 mg 11/24/24 21:00 11/24/24 20:23 Pantoprazole 40 Mg Tablet PO 40 mg HS MOUSTAPHA Administration Trazodone HCl 150 mg 11/24/24 21:00 11/24/24 20:22 Trazodone Hcl 50 Mg Tab PO 150 mg HS MOUSTAPHA Administration Objective - Vital Signs Vital signs: Vital Signs Temp 97.9 F 11/25/24 07:00 Pulse 57 L 11/25/24 07:00 Resp 16 11/25/24 07:00 BP 139/66 11/25/24 07:00 Pulse Ox 95 11/25/24 07:00 FiO2 Intake & Output 11/24/24 11/25/24 11/25/24 18:59 06:59 18:59 Weight 59.874 kg Other: # Voids 2 - Exam GENERAL: The patient is alert and oriented x3, not in any acute distress. Well developed, well nourished. HEENT: Pupils are round and equally reacting to light. EOMI. No scleral icterus. No conjunctival pallor. Normocephalic, atraumatic. No pharyngeal erythema. No thyromegaly. CARDIOVASCULAR: S1 and S2 present. No murmurs, rubs, or gallops. PULMONARY: Chest is clear to auscultation, no wheezing , no crackles. ABDOMEN: Soft, nontender, nondistended, normoactive bowel sounds. No palpable organomegaly. MUSCULOSKELETAL: No joint swelling or deformity. EXTREMITIES: No cyanosis, clubbing, or pedal edema. NEUROLOGICAL: Gross neurological examination did not reveal any focal deficits. SKIN: No rashes. no petechiae. - Labs CBC & Chem 7: 11/23/24 22:57 11/25/24 05:17 Labs: Abnormal Lab Results - Last 24 Hours (Table) 11/25/24 Range/Units 05:17 Chloride 111 H (96-109) mmol/L BUN/Creatinine Ratio 29.33 H (12.00-20.00) Ratio Assessment and Plan Assessment: Chest pain, s/p cardiac cath Mild left lower lobe infiltrate versus atelectasis. Unlikely pneumonia. Follow-up procalcitonin was negative making atelectasis most likely diagnosis besides the patient is asymptomatic History of CVA Hyperlipidemia Hypertension Gastroesophageal reflux disease Chronic low back pain status post surgery of the neck and back Plan: Cardiology consult Continue with aspirin Follow-up the result of the cardiac cath No need for antibiotic as patient most likely has atelectasis CTA of the chest was negative for PE and no evidence of infiltrate as well Labs and medication were reviewed.. Continue same treatment. Continue with symptomatic treatment. Resume home medication. Monitor labs and vitals. DVT and GI prophylaxis. Further recommendations as per clinical course of the patient DVT prophylaxis: Subcutaneous heparin GI Prophylaxis: Pepcid PT/OT: Pending Prognosis is guarded Possible discharge in 24 hours if the results of cardiac cath was nonconcerning
--- NOTE | 2024-11-25 21:54 | CC ---
CARDIAC CATHETERIZATION REPORT INDICATIONS: Unstable angina. PROCEDURE NOTE: After obtaining informed consent, left heart catheterization and coronary angiogram were performed via the right radial artery using standard Emily catheters. The patient tolerated the procedure well without any obvious immediate complications. The patient received moderate conscious sedation. Total sedation time was 11 minutes. Right radial artery access was obtained using Seldinger technique, 6-Mongolian sheath was placed. Catheters and wires were floated into the ascending aorta under fluoroscopic guidance. The patient received verapamil and heparin per protocol and a TR band will be used for hemostasis. FINDINGS: 1. Hemodynamics: a.Left ventricular end-diastolic pressure is 10 to 12 mm. There is a significant gradient across the aortic valve. b.Left ventriculogram: Left ventriculogram is not performed. 2. Angiographic data: a.Right coronary artery right coronary artery is a large dominant vessel and it is free of significant stenosis. b.Left main coronary artery appears mildly calcified, but is free of significant disease, divides into left anterior descending coronary artery and circumflex coronary artery. c.Circumflex coronary artery shows a 30% to 40% stenosis in its midportion. LAD shows mild nonobstructive disease. CONCLUSION: 30% to 40% stenosis involving the circumflex coronary artery. PLAN: The patient's chest discomfort is probably noncardiac in origin. Her management is going to be in the form of risk factor modification, optimal control of her hypertension, cholesterol, and diabetes. MMODL / IJN: [id number] /
[2024-11-26 05:42] VITALS: RESP 16
[2024-11-26 08:37] LABS: BUN/Creat Ratio 21.43 Ratio (12.00-20.00); Calcium 9.3 mg/dL (8.7-10.3); Carbon Dioxide 23.8 mmol/L (21.6-31.8); Chloride 111 mmol/L (96-109); Glucose 110 mg/dL (70-110); Sodium 145 mmol/L (135-145)
[2024-11-26] MEDS: ISOSORBIDE MONONITRATE ER 30 MG TAB.ER.24H PO SCH (08:56)
[2024-11-26] MEDS: amLODIPine 10 MG TAB PO SCH (08:56)
[2024-11-26] MEDS ORDERED: ASPIRIN 81 MG PO SCH (09:00)
--- NOTE | 2024-11-26 09:15 | P.PN ---
Subjective HISTORY OF PRESENT ILLNESS: This is a 74-year-old female with a past medical history significant for hypertension, hyperlipidemia, and diabetes. Patient used to follow in the office with Dr. Gomez but has not been seen since 2020. We have been asked to see the patient in consultation for chest pain. Patient examined at the bedside. Patient states yesterday afternoon she started to have pain in her back and in between her shoulder blades. She states then she developed pressure in her chest. She states that she initially thought her discomfort was due to her back surgery she had about 3 months ago however this pain was different than the pain she has had previously and she became concerned and came to the emergency room for further evaluation. She did receive aspirin in the emergency room. She reports improvement in her pain and denies any chest pain at the time of examination. DIAGNOSTICS: - EKG reveals sinus mechanism with nonspecific ST-T wave changes. - Chest xray mild cardiomegaly with left basilar acute infiltrate and/or atelectasis. - Laboratory data: WBC 10.6. Hemoglobin 12.6. Platelet count 357. Sodium 138. Potassium 3.6. BUN 28. Creatinine 0.76. Magnesium 2.0. Troponin negative x 3. - Current home cardiac medication list not updated at the time of examination - Most recent echocardiogram obtained in March 2023 revealed ejection fraction 55 to 60%, no obvious regional wall motion abnormalities, trace TR -Patient underwent stress echocardiogram in November 2019 which was negative for ischemia 11/25/2024 Patient examined this morning to bedside. Patient denies any chest pain or pressure. She denies any shortness of breath. Patient underwent CTA yesterday which was negative for pulmonary embolism but did reveal moderate coronary artery calcifications. Echocardiogram completed revealing ejection fraction 60 to 65% with no obvious regional wall motion abnormalities, trace MR, and trace to mild TR. vital signs are stable. Patient's blood pressures have been elevated with a systolic between [id number]. 11/26/2024 Patient is status post cardiac catheterization yesterday with Dr. Vega revealing 30 to 40% stenosis involving the circumflex coronary artery. Medical management is recommended. Patient examined this morning the bedside. She denies chest pain or pressure. She denies shortness of breath. Vital signs are stable. PHYSICAL EXAM: VITAL SIGNS: Reviewed. GENERAL: Well-developed in no acute distress. HEENT: Head is normocephalic. Pupils are equal, round. Sclerae anicteric. Mucous membranes of the mouth are moist. Neck supple. No JVD or thyromegaly LUNGS: Respirations even and unlabored. Lungs essentially clear to auscultation bilaterally. HEART: Regular rate and rhythm. S1 and S2 heard. ABDOMEN: Soft. Nondistended. Nontender. EXTREMITIES: Normal range of motion. No clubbing or cyanosis. Peripheral pulses intact. No lower extremity edema NEUROLOGIC: Awake and alert. Oriented x 3. ASSESSMENT: Chest pain, status post cardiac cath revealing 30 to 40% stenosis of circumflex coronary artery Back pain History of back surgery 3 months ago per patient Hypertension Hyperlipidemia Diabetes PLAN: Continue current cardiac medications Patient is stable for discharge home today from a cardiac standpoint Patient to follow-up postdischarge with Dr. Vega Nurse practitioner note has been reviewed by physician. Signing provider agrees with the documented findings, assessment, and plan of care documented by BIOLOGIST AIDE as a scribe. Objective - Vital Signs Vital signs: Vital Signs Temp 97.6 F 11/26/24 02:00 Pulse 61 11/26/24 02:00 Resp 16 11/26/24 02:00 BP 155/65 11/26/24 02:00 Pulse Ox 97 11/26/24 02:00 FiO2 Intake & Output 11/25/24 11/26/24 11/26/24 18:59 06:59 18:59 Intake Total 218 540 Balance 218 540 Intake: IV 100 Oral 118 540 Other: # Voids 1 3 - Labs CBC & Chem 7: 11/23/24 22:57 11/26/24 04:20 Labs: Abnormal Lab Results - Last 24 Hours (Table) 11/26/24 Range/Units 04:20 Chloride 111 H (96-109) mmol/L BUN/Creatinine Ratio 21.43 H (12.00-20.00) Ratio
[2024-11-26 09:58] VITALS: BP 139/60; PULSE 54; TEMP 97.5
--- NOTE | 2024-11-26 19:49 | P.DS ---
Providers Date of admission: 11/24/24 00:02 Attending physician: Elliott Martini Consults: 11/24/24 00:01 Consult Physician Urgent Consulting Provider: Mikhail Mcfarland Consult Reason/Comments: chest pain Do you want consulting provider notified?: Yes Primary care physician: Stefan Mcgrath [facility] Course: Diagnoses: Chest pain, s/p cardiac cath on 11/25 showin to 40% stenosis involving the circumflex coronary artery Mild left lower lobe infiltrate versus atelectasis. Unlikely pneumonia. Follow-up procalcitonin was negative making atelectasis most likely diagnosis besides the patient is asymptomatic History of CVA Hyperlipidemia Hypertension Gastroesophageal reflux disease Chronic low back pain status post surgery of the neck and back Hospital course: This is a pleasant 74 years old female who presents because of chest pain which started yesterday about 01/10, Patient had cardiac cath on 11/25 showing 30 to 40% stenosis involving the circumflex coronary artery. No stent was placed and patient was going to be treated medically as per breast trimmer Today she is sitting up in chair denies chest pain or dyspnea or any other new complaint Patient was cleared for discharge by breast trimmer and patient is eager to go home Problems and management plan were discussed with the patient and he verbalized understanding and acceptance Patient was found stable and can be discharged home in guarded prognosis however he needs follow-up as an outpatient. Patient was instructed to follow up with PCP Dr. Mcgrath within one week and patient agrees Patient was instructed to follow-up with Dr. Rodriguez in 1 to 2 weeks Physical exam Gen: patient is a AAOx3, no distress CVS: S1-S2, RRR, no murmur Lungs: B/L CTA, no wheezing Abdomen: soft, no distention, no tenderness, positive bowel sounds Extremity: no leg edema or induration Time spent more than 35 minutes Patient Condition at Discharge: Fair Plan - Discharge Summary Discharge Rx Participant: Yes New Discharge Prescriptions: New Isosorbide Mononitrate ER [Imdur] 30 mg PO DAILY #30 tab Atorvastatin [Lipitor] 80 mg PO HS #30 tab Nitroglycerin Sl Tabs [Nitrostat] 0.4 mg SUBLINGUAL Q5M PRN #10 tab PRN Reason: Chest Pain amLODIPine [Norvasc] 10 mg PO DAILY #30 tab Continue Pantoprazole [Protonix] 40 mg PO HS Vitamin B Complex 1 cap PO DAILY methocarbamoL [Robaxin-750] 750 mg PO HS lisinopriL 40 mg PO HS Metoprolol Succinate (ER) [Toprol XL] 50 mg PO DAILY traZODone HCL 150 mg PO HS Cholecalciferol [Vitamin D3 (25 Mcg = 1000 Iu)] 25 mcg PO DAILY Aspirin EC [Ecotrin Low Dose] 81 mg PO DAILY Discontinued amLODIPine [Norvasc] 5 mg PO DAILY Pravastatin Sodium [Pravachol] 20 mg PO HS Discharge Medication List Pantoprazole [Protonix] 40 mg PO HS 07/25/19 [History] Aspirin EC [Ecotrin Low Dose] 81 mg PO DAILY 04/04/21 [History] Cholecalciferol [Vitamin D3 (25 Mcg = 1000 Iu)] 25 mcg PO DAILY 04/04/21 [History] Vitamin B Complex 1 cap PO DAILY 04/04/21 [History] Metoprolol Succinate (ER) [Toprol XL] 50 mg PO DAILY 11/24/24 [History] lisinopriL 40 mg PO HS 11/24/24 [History] methocarbamoL [Robaxin-750] 750 mg PO HS 11/24/24 [History] traZODone HCL 150 mg PO HS 11/24/24 [History] Atorvastatin [Lipitor] 80 mg PO HS #30 tab 11/26/24 [Rx] Isosorbide Mononitrate ER [Imdur] 30 mg PO DAILY #30 tab 11/26/24 [Rx] Nitroglycerin Sl Tabs [Nitrostat] 0.4 mg SUBLINGUAL Q5M PRN #10 tab 11/26/24 [Rx] amLODIPine [Norvasc] 10 mg PO DAILY #30 tab 11/26/24 [Rx] Follow up Appointment(s)/Referral(s): Stefan Mcgrath DO [Primary Care Provider] - 1-2 days Renzo Vega MD [STAFF PHYSICIAN] - 3 Weeks (Office will call you for an appointment) Patient Instructions/Handouts: Heart Catheterization (GEN) Activity/Diet/Wound Care/Special Instructions: heart healthy diet activity is restricted till you see your doctor Discharge Disposition: HOME SELF-CARE
== END 2024-11-26 14:08 | disposition home or self-care (01) | DRG 287 ==
LOC: EC 22:41 → 6NMEDSUR 11-24 00:01 → OBSVTOIN 11-24 00:02 → 6NMEDSUR 11-24 18:31
PROVIDERS: ADMIT Hospitalist; ATTEND Hospitalist
PROC: B2111ZZ Fluoroscopy of Multiple Coronary Arteries using Low Osmolar Contrast (ICD-10-PCS; 2024-11-25)
PROC: 4A023N7 Measurement of Cardiac Sampling and Pressure, Left Heart, Percutaneous Approach (ICD-10-PCS; principal; 2024-11-25 11:00)
DX: R07.89 Other chest pain (principal); E11.9 Type 2 diabetes mellitus without complications; I10 Essential (primary) hypertension; F32.A Depression, unspecified; I08.3 Combined rheumatic disorders of mitral, aortic and tricuspid valves; J98.11 Atelectasis; R00.1 Bradycardia, unspecified; I25.10 Atherosclerotic heart disease of native coronary artery without angina pectoris; E78.5 Hyperlipidemia, unspecified; G89.29 Other chronic pain; M50.30 Other cervical disc degeneration, unspecified cervical region; K21.9 Gastro-esophageal reflux disease without esophagitis; Z79.1 Long term (current) use of non-steroidal anti-inflammatories (NSAID); F41.9 Anxiety disorder, unspecified; Z79.82 Long term (current) use of aspirin; Z79.84 Long term (current) use of oral hypoglycemic drugs; Z79.899 Other long term (current) drug therapy; Z82.49 Family history of ischemic heart disease and other diseases of the circulatory system; Z86.73 Personal history of transient ischemic attack (TIA), and cerebral infarction without residual deficits; Z87.11 Personal history of peptic ulcer disease; Z90.710 Acquired absence of both cervix and uterus; Z96.1 Presence of intraocular lens; Z98.42 Cataract extraction status, left eye; Z98.41 Cataract extraction status, right eye; Z98.51 Tubal ligation status; Z88.1 Allergy status to other antibiotic agents
CPT/HCPCS: 36415; 71046; 71275; 80048; 80053; 80061; 83735; 84145; 84484; 85025; 85379; 85610; 85730; 93005; 93306; 96365; 96366; 99285

== ENCOUNTER → 2025-01-20 | Outpatient (CLI) | payer MEDICARE ==
--- NOTE | 2025-01-20 13:46 | MR ---
EXAMINATION TYPE: MR thoracic spine wo con DATE OF EXAM: 01/20/2025 12:33 PM COMPARISON: Correlation CT 11/24/2024 CLINICAL INDICATION: Female, 74 years old with history of M54.6 PAIN IN THORACIC SPINE, Neck and back pain into rt upper extremity TECHNIQUE: Multiplanar, multisequence images of the thoracic spine were obtained without IV contrast. FINDINGS: Mild to moderate multilevel degenerative disc disease characterized by desiccated and mild bulging di scs. There is no large focal disc herniation or significant spinal canal stenosis seen. Small posterior di sc protrusions impress on the ventral thecal sac at multiple levels. Degenerative grade 1 anterolisthesis C7-T1 secondary to hypertrophic facet arthropathy. Some scattered ligamentum flavum thickening is present such as a T3-T4. Conus medullaris is normal. Chronic appearing minimal anterior wedging T7. No paravertebral soft tissue or osseous edema seen her e. Otherwise, vertebral body heights are preserved. There is some diminished T1-weighted signal within the T11 vertebral body. Unclear if there is a subt le underlying lesion here. No associated bright signal on STIR. Normal course, caliber, and signal intensity of the thoracic spinal cord. No large focal disc herniat ion or significant spinal canal stenosis. On the right, hypertrophic facet arthropathy contribute to variable mild neuroforaminal stenoses thro ughout the upper thoracic spine, more moderate on the left at T3-T4. IMPRESSION: 1. Mild to moderate multilevel degenerative disc disease. No large focal disc herniation or significa nt spinal canal stenosis. 2. Moderate facet arthropathy up her thoracic spine contributing to variable mild neuroforaminal sten oses. More moderate on the left at T3-T4. 3. Degenerative grade 1 anterolisthesis C7-T1. 4. Questionable low area of diminished marrow signal within the T11 vertebral body. Unclear if there is a subtle underlying lesion here. Consider 3 month follow-up MRI without and with contrast to reass ess and also nuclear medicine whole body bone scan to survey the remainder of the skeleton. [facility], , 01/20/2025 1:43 PM
== END | disposition home or self-care (01) ==
LOC: RADMRIMAIN 11:28
PROVIDERS: ATTEND Neurological Surgery
DX: M48.04 Spinal stenosis, thoracic region (principal); M51.34 Other intervertebral disc degeneration, thoracic region; M47.814 Spondylosis without myelopathy or radiculopathy, thoracic region; M43.14 Spondylolisthesis, thoracic region
CPT/HCPCS: 72146

== ENCOUNTER → 2025-02-11 | Outpatient (CLI) | payer MEDICARE ==
--- NOTE | 2025-02-11 19:16 | MR ---
EXAMINATION TYPE: MR lumbar spine wo/w con DATE OF EXAM: 02/11/2025 12:00 PM COMPARISON: None. CLINICAL INDICATION: Female, 74 years old with history of M54.16, Low back pain into rt thigh TECHNIQUE: Multiplanar, multisequence images of the lumbar spine were acquired. IV Contrast: 6 mL Gadobutrol (None, if empty) FINDINGS: Cord ends at the L1-L2 level. L5-S1: Central disc bulging is present. No thecal sac impression. No spinal canal stenosis. Mild face t hypertrophy is present. Neural foramen have moderate left and minimal right narrowing. L4-L5: Mild disc bulging is present with anterior thecal sac flattening. Facet hypertrophy is present . No AP canal stenosis. Moderate left and mild right foraminal narrowing is present. L3-L4: Broad-based disc bulge has anterior thecal sac flattening. Facet hypertrophy is present. No sp inal canal stenosis is present. Right foramen has moderate narrowing. L2-L3: No focal disc herniation or significant disc bulge. No spinal canal stenosis. Neural foramen are patent. Facet hypertrophy is some ligamentum flavum laxity has right posterior lateral thecal s ac compression. No stenosis L1-L2: No focal disc herniation or significant disc bulge. No spinal canal stenosis. Neural foramen are patent. T12-L1: No focal disc herniation or significant disc bulge. No spinal canal stenosis. Neural forame n are patent. IMPRESSION: 1. Moderate left foraminal narrowing L4-5, L5-S1. Moderate right foraminal narrowing is present L3-4. 2. Mild disc bulging L5-S1 without thecal sac contact. 3. Mild disc bulging L3-L4 with anterior thecal sac flattening. 4. Mild disc bulging L4-L5 with anterior thecal sac flattening. [facility], , 02/11/2025 7:14 PM
== END | disposition home or self-care (01) ==
LOC: RADMRIMAIN 11:03
PROVIDERS: ATTEND Neurological Surgery
DX: M48.061 Spinal stenosis, lumbar region without neurogenic claudication (principal); M51.17 Intervertebral disc disorders with radiculopathy, lumbosacral region
CPT/HCPCS: 72158; A9585

== ENCOUNTER → 2025-02-13 | Outpatient (CLI) | payer MEDICARE ==
--- NOTE | 2025-02-13 15:47 | MR ---
EXAMINATION TYPE: MR cervical spine wo/w con DATE OF EXAM: 02/13/2025 3:30 PM COMPARISON: 03/22/2023. CLINICAL INDICATION: Female, 74 years old with history of G95.9 DISEASE SPINAL CORD M54.6 PAIN T SPIN E; PHH, Neck pain that radiates down right arm to fingers, history of surgery. TECHNIQUE: Multi planar, multi sequence imaging was performed utilizing: T1-weighted, T2-weighted, an d turbo inversion recovery imaging of the cervical spine. IV Contrast: 6 mL Gadobutrol (None, if empty) FINDINGS: Alignment: The cervical vertebral bodies have preserved heights. Alignment is within normal limits gi jose patient positioning. Bones: Surgical changes of the skull base. There is improved spinal canal narrowing at this level. Mu ltilevel disc space narrowing and osteophyte formation with facet and uncovertebral joint arthropathy . Postsurgical changes C4-C5 with osseous fusion of C4 on C5. Cord: The spinal cord is unremarkable with regards to their signal intensity and morphology. Discs: Intervertebral disc signal is maintained. C2-C3: No significant disc pathology. The spinal canal is patent. No neural foraminal stenosis. C3-C4: No significant disc pathology. The spinal canal is patent. Bilateral facet and uncovertebral joint arthropathy are present with moderate left and mild right neural foraminal stenosis. C4-C5: Disc is absent there is fusion of C4-C5. The spinal canal is patent. No neural foraminal sten osis. C5-C6: A disc osteophyte complex is present with mild spinal canal stenosis. Bilateral facet and unc overtebral joint arthropathy are present with mild to moderate left neural foraminal stenosis. The ri ght neural foramen is patent. C6-C7: No significant disc pathology. The spinal canal is patent. No neural foraminal stenosis. C7-T1: No significant disc pathology. The spinal canal is patent. No neural foraminal stenosis. No abnormal postcontrast enhancement. IMPRESSION: 1. Postsurgical changes of the skull base with improved patency of the superior spinal canal at level C1-C2. No evidence for disc herniation or significant spinal canal stenosis. 2. Multilevel disc degeneration with associated osteoarthritic changes. No foraminal stenosis worse w ith mild to moderate left C5-6 and moderate left C2 C4. 3. Postsurgical changes of the spine with bony fusion of C4-C5. [facility]: [id number], 02/13/2025 3:45 PM
== END | disposition home or self-care (01) ==
LOC: RADMRIMAIN 14:21
PROVIDERS: ATTEND Neurological Surgery
DX: M47.812 Spondylosis without myelopathy or radiculopathy, cervical region (principal); G95.9 Disease of spinal cord, unspecified; M50.30 Other cervical disc degeneration, unspecified cervical region; Z98.1 Arthrodesis status
CPT/HCPCS: 72156; A9585